=== PATIENT | female | born 1950 | race African-American/Black ===

== ENCOUNTER 2017-07-02 09:52 | Observation (INO) | payer OTHER ==
--- NOTE | 2017-07-02 11:19 | PDOC ---
History of Present Illness - General History Source: Patient Exam Limitations: No Limitations - History of Present Illness Initial Comments: 07/02/17 11:30 The patient is a 67 year old female, with a significant past medical history of COPD, lobectomy, mitral and aortic valve replacement, a-fib, cancer, HTN, CAD s/ p stent, and epmhpaseima, who presents to the emergency department with left arm pain, cough, back pain, SOB. The patient reports her pain is productive often bringing up yellow mucus. The patient ranks her pain a 8/10 in pain intensity. She notes her left arm pain is often worse with over head motions and notes having some numbness along her LUE. She notes her pain in back is worse with any motion. She denies recent fevers, chills, headache or dizziness. She denies recent nausea, vomit, diarrhea or constipation. She denies recent dysuria, frequency, urgency or hematuria. She denies recent chest pain. Allergies: NKA <Oneil Hartman - Last Filed: 07/02/17 11:30> <Rashida Hurley - Last Filed: 07/02/17 14:33> - General Chief Complaint: Shortness of Breath Stated Complaint: PCP SENT, BACK/LT ARM PAIN Time Seen by Provider: 07/02/17 10:55 Past History <Oneil Hartman - Last Filed: 07/02/17 11:30> - Past Medical History Anemia: (VIT D DEFICIENT) Cancer: Yes (MALIGNANT LUNG TUMOR) Cardiac Disorders: Yes (RHEUMATIC AORTIC STENOSIS, RHEUMATIC MITRAL REGURGITATION) CVA: Yes (W/DYSPHAGIA) COPD: Yes HTN: Yes (ESSENTIAL HTN) Thyroid Disease: Yes (HYPERPARATHYROIDISM) - Surgical History Cardiac Surgery: Yes (MECHANICAL AORTIC AND MITRAL VALVE) - Immunization History Immunization Up to Date: Yes (PNA UP TO DATE) - Suicide/Smoking/Psychosocial Hx Smoking History: Never smoked Have you smoked in the past 12 months: No Information on smoking cessation initiated: No 'Breaking Loose' booklet given: 11/15/13 Hx Alcohol Use: No Drug/Substance Use Hx: No Substance Use Type: None Hx Substance Use Treatment: No <Rashida Hurley - Last Filed: 07/02/17 14:33> - Past Medical History Allergies/Adverse Reactions: Allergies Allergy/AdvReac Type Severity Reaction Status Date / Time aspirin Allergy Severe Difficulty Verified 07/02/17 10:02 Breathing bupropion HCl [From Zyban] Allergy Severe Difficulty Verified 07/02/17 10:02 Breathing iodine Allergy Severe Difficulty Verified 07/02/17 10:02 Breathing Home Medications: Ambulatory Orders Albuterol Sulfate Inhaler - [Ventolin Hfa Inhaler -] 1 - 2 inh PO QID 07/02/17 Alendronate Na [Fosamax] 70 mg PO Q7D 07/02/17 Carvedilol [Coreg -] 25 mg PO TID 07/02/17 Chlorthalidone 50 mg PO DAILY 07/02/17 Clopidogrel Bisulfate [Plavix] 75 mg PO DAILY 07/02/17 Digoxin [Lanoxin -] 0.125 mg PO DAILY 07/02/17 Diltiazem Cd [Cardizem Cd -] 180 mg PO DAILY 07/02/17 Famotidine 20 mg PO DAILY 07/02/17 Tiotropium [place] [Spiriva] 1 inh PO DAILY 07/02/17 Valsartan [Diovan] 160 mg PO DAILY 07/02/17 Warfarin Na [Coumadin] 5 mg PO DAILY 07/02/17 Review of Systems - Review of Systems Able to Perform ROS?: Yes Comments:: 07/02/17 11:30 GENERAL/CONSTITUTIONAL: No fever or chills. No weakness. HEAD, EYES, EARS, NOSE AND THROAT: No change in vision. No ear pain or discharge. No sore throat. CARDIOVASCULAR: No chest pain +shortness of breath. RESPIRATORY: +cough No wheezing, or hemoptysis. GASTROINTESTINAL: No nausea, vomiting, diarrhea or constipation. GENITOURINARY: No dysuria, frequency, or change in urination. MUSCULOSKELETAL: +Left arm pain and back pain. No joint or muscle swelling or pain. No neck pain SKIN: No rash NEUROLOGIC: No headache, vertigo, loss of consciousness, or change in strength/ sensation. ENDOCRINE: No increased thirst. No abnormal weight change. HEMATOLOGIC/LYMPHATIC: No anemia, easy bleeding, or history of blood clots. ALLERGIC/IMMUNOLOGIC: No hives or skin allergy. <Oneil Hartman - Last Filed: 07/02/17 11:30> *Physical Exam - Vital Signs Last Vital Signs Temp Pulse Resp BP Pulse Ox 99.0 F 100 H 16 150/70 100 07/02/17 10:04 07/02/17 10:04 07/02/17 10:04 07/02/17 10:04 07/02/17 10:04 - Physical Exam Comments: 07/02/17 11:32 GENERAL: Awake, alert, and fully oriented, in no acute distress HEAD: No signs of trauma EYES: PERRLA, EOMI, sclera anicteric, conjunctiva clear ENT: Auricles normal inspection, hearing grossly normal, nares patent, oropharynx clear without exudates. Moist mucosa NECK: Normal ROM, supple, no lymphadenopathy, JVD, or masses LUNGS: Lung sounds are distant, decreased air entry bilaterally HEART: Regular rate and rhythm, normal S1 and S2, no murmurs, rubs or gallops ABDOMEN: Soft, nontender, normoactive bowel sounds. No guarding, no rebound. No masses EXTREMITIES: Normal range of motion, no edema. No clubbing or cyanosis. No cords, erythema, or tenderness NEUROLOGICAL: Cranial nerves II through XII grossly intact. Normal speech, normal gait SKIN: Warm, Dry, normal turgor, no rashes or lesions noted. 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 He suggested that her symptoms are likely due to CHF based on lab findings and presentation. She has history of diastolic HF. Baseline EF ~50%. Recommended diuretics. Also d/w Dr. Krause, patient has known history of hypercalcemia, in process of workup at present. Will discuss with Dr. Spears for admission. <Rashida Hurley - Last Filed: 07/02/17 14:33> *DC/Admit/Observation/Transfer - Attestations Scribe Attestion: 07/02/17 11:30 Documentation prepared by Oneil Hartman, acting as director medical science for Rashida Hurley MD. <Oneil Hartman - Last Filed: 07/02/17 11:30> - Discharge Dispostion Admit: Yes <Rashida Hurley - Last Filed: 07/02/17 14:33> Diagnosis at time of Disposition: Hypercalcemia CHF (congestive heart failure) Qualifiers: Congestive heart failure type: diastolic Congestive heart failure chronicity: acute on chronic Qualified Code(s): I50.33 - Acute on chronic diastolic ( congestive) heart failure - Discharge Dispostion Condition at time of disposition: Stable - Referrals Referrals: STAFF,NOT ON [Primary Care Provider] - - Patient Instructions - Post Discharge Activity
[2017-07-02 12:19] LABS: BASO % 0.5 % (0-2.0); EOS % 1.2 % (0-4.5); HEMATOCRIT 41.8 % (32.4-45.2); HEMOGLOBIN 13.5 GM/dL (10.7-15.3); LYMPH % 10.5 % (8-40); MCH 27.7 pg (25.7-33.7); MCHC 32.3 g/dl (32.0-36.0); MEAN CELL VOLUME 85.9 fl (80-96); MEAN PLT VOLUME 9.9 fl (7.5-11.1); NEUT % 79.8 % (42.8-82.8); PLATELET COUNT 165 K/MM3 (134-434); RBC 4.86 M/mm3 (3.60-5.2); RDW 15.2 % (11.6-15.6); WHITE BLOOD COUNT 11.9 K/mm3 (4.0-10.0)
[2017-07-02 12:49] LABS: ALBUMIN 3.4 g/dl (3.4-5.0); ANION GAP 7 (8-16); BILIRUBIN,TOTAL 0.7 mg/dL (0.2-1.0); BLOOD UREA NITROGEN 25 mg/dL (7-18); CHLORIDE 104 mmol/L (98-107); CO2 29 mmol/L (21-32); CREATININE 1.2 mg/dL (0.55-1.02); GLUCOSE,RANDOM 90 mg/dL (74-106); SGPT/ALT 14 U/L (12-78); SODIUM 140 mmol/L (136-145)
[2017-07-02 12:51] LABS: ALK PHOS 134 U/L (45-117)
[2017-07-02 12:55] LABS: POTASSIUM 3.4 mmol/L (3.5-5.1)
[2017-07-02 12:56] LABS: SGOT/AST 23 U/L (15-37)
[2017-07-02 14:28] LABS: PROTHROMBIN TIME (PATIENT) 49.9 SEC (9.98-11.88)
[2017-07-02] MEDS ORDERED: FUROSEMIDE 40 MG/4 ML INJECTABLE VIAL IVPUSH ONE (14:33)
[2017-07-02 15:11] LABS: INR 4.42 (0.82-1.09)
[2017-07-02] MEDS ORDERED: ACETAMINOPHEN 325 MG TABLET (FP) PO PRN (15:14)
--- NOTE | 2017-07-02 15:53 | HP ---
Admitting History and Physical - Primary Care Physician PCP: Sandy Krause - Admission Chief Complaint: I'm short of breath History of Present Illness: Mrs Mcfarland is a 67 year old female who comes to the ED with shortness of breath. Patient is a very vague and poor historian so unable to obtain a clear history from her. She states that she has been sick for "a long time now", she says well before Evin. She says she knows she has walking pneumonia but has been taking mucinex and this has resolved. She says she still has a cough but the sputum is clear. She says she is short of breath with exertion, she states she can only walk to the bathroom before she gets short of breath. This does not sound like a new symptom or even if it is worsening, when trying to clarify she says she used to walk around without difficulty but she has been weak and short of breath for years now and cannot tell me if this is her baseline or if worsened. She complains of back pain and L arm pain that has been there "forever". She cannot tell me how severe or the type of pain. She says she had a fever but when asked when she experienced a fever she says "I don 't know". She says she fell in the past but has not fallen recently. She denies abdominal pain, nausea, vomiting, diarrhea, constipation, difficulty or pain on urination, or swelling. She told the ED physician that she was here for an ultrasound and became short of breath so came to the ED. She told me that she showed up to the ultrasound appointment and they sent her over for further evaluation. She says she was hoping to go home. Case d/w Dr Krause and Dr Olivo who state this sounds like her baseline, however she is such a poor historian it is difficult to ascertain her complaints. History Source: Patient Limitations to Obtaining History: Poor Historian - Past Medical History Cardiovascular: Yes: CAD, HTN Pulmonary: Yes: COPD - Past Surgical History Past Surgical History: Yes: Valve Replacement - Smoking History Smoking history: Former smoker Have you smoked in the past 12 months: No - Alcohol/Substance Use Hx Alcohol Use: No History of Substance Use: reports: None - Social History Usual Living Arrangement: Yes: With Spouse ADL: Independent History of Recent Travel: No Home Medications - Allergies Allergies/Adverse Reactions: Allergies Allergy/AdvReac Type Severity Reaction Status Date / Time aspirin Allergy Severe Difficulty Verified 07/02/17 10:02 Breathing bupropion HCl [From Zyban] Allergy Severe Difficulty Verified 07/02/17 10:02 Breathing iodine Allergy Severe Difficulty Verified 07/02/17 10:02 Breathing - Home Medications Home Medications: Ambulatory Orders Albuterol Sulfate Inhaler - [Ventolin Hfa Inhaler -] 1 - 2 inh PO QID 07/02/17 Alendronate Na [Fosamax] 70 mg PO Q7D 07/02/17 Carvedilol [Coreg -] 25 mg PO TID 07/02/17 Chlorthalidone 50 mg PO DAILY 07/02/17 Clopidogrel Bisulfate [Plavix] 75 mg PO DAILY 07/02/17 Digoxin [Lanoxin -] 0.125 mg PO DAILY 07/02/17 Diltiazem Cd [Cardizem Cd -] 180 mg PO DAILY 07/02/17 Famotidine 20 mg PO DAILY 07/02/17 Tiotropium [place] [Spiriva] 1 inh PO DAILY 07/02/17 Valsartan [Diovan] 160 mg PO DAILY 07/02/17 Warfarin Na [Coumadin] 5 mg PO DAILY 07/02/17 Family Disease History - Family Disease History Family Disease History: Other: Mother (ESRD/HTN) Review of Systems Findings/Remarks: Full review of systems attempted, however patient is a poor historian and unable to obtain clear ROS Physical Examination Vital Signs: Vital Signs Temperature 37.2 C 07/02/17 10:04 Pulse Rate 100 H 07/02/17 10:04 Respiratory Rate 16 07/02/17 10:04 Blood Pressure 150/70 07/02/17 10:04 O2 Sat by Pulse Oximetry (%) 100 07/02/17 10:04 Constitutional: Yes: No Distress, Calm, Thin Eyes: Yes: Conjunctiva Clear, EOM Intact, PERRL Cardiovascular: Yes: Pulse Irregular. No: Tachycardia, Gallop, Murmur, Rub Respiratory: Yes: Regular, CTA Bilaterally, On Nasal O2. No: Rales, Rhonchi, Wheezes Gastrointestinal: Yes: Normal Bowel Sounds, Soft. No: Distention, Tenderness Extremities: Yes: WNL Edema: No Labs: CBC, BMP 07/02/17 12:10 07/02/17 12:10 Imaging - Results Chest X-ray: Report Reviewed, Image Reviewed Problem List - Problems (1) Supratherapeutic INR Assessment/Plan: -patient with elevated INR -target 2.5-3.5 -hold coumadin today -recheck in am Code(s): R79.1 - ABNORMAL COAGULATION PROFILE (2) CHF (congestive heart failure) Assessment/Plan: -patient with elevated bnp, however clinically does not appear in CHF exacerbation -chronically sick and poor historian -received lasix in the ED -admit to telemetry under observation -monitor overnight, evaluate and possible discharge in am Code(s): I50.9 - HEART FAILURE, UNSPECIFIED Qualifiers: Congestive heart failure type: diastolic Congestive heart failure chronicity: chronic Qualified Code(s): I50.32 - Chronic diastolic (congestive ) heart failure (3) Hypercalcemia Assessment/Plan: -chronic -continue outpatient work up Code(s): E83.52 - HYPERCALCEMIA (4) A-fib Assessment/Plan: -rate controlled Code(s): I48.91 - UNSPECIFIED ATRIAL FIBRILLATION Qualifiers: Atrial fibrillation type: chronic Qualified Code(s): I48.2 - Chronic atrial fibrillation (5) ASHD (arteriosclerotic heart disease) Assessment/Plan: -case d/w outpatient dental therapist -continue home regimen Code(s): I25.10 - ATHSCL HEART DISEASE OF [place] CORONARY ARTERY W/O ANG PCTRS (6) HTN (hypertension) Assessment/Plan: -continue home regimen Code(s): I10 - ESSENTIAL (PRIMARY) HYPERTENSION (7) S/P AVR (aortic valve replacement) Assessment/Plan: -mechanical -INR range as above Code(s): Z95.2 - PRESENCE OF PROSTHETIC HEART VALVE (8) S/P MVR (mitral valve replacement) Assessment/Plan: -mechanical -INR range as above Code(s): Z95.2 - PRESENCE OF PROSTHETIC HEART VALVE Assessment/Plan Dispo -patient unknown to our system, [facility] -will admit under observation -if chronic and at baseline, patient would not benefit from transition rn hospital stay -re-evaluate tomorrow and possible discharge
[2017-07-02] MEDS ORDERED: FUROSEMIDE 40 MG/4 ML INJECTABLE VIAL ONE (16:37)
[2017-07-02] MEDS: ALBUTEROL SO4 18 GM HFA INHALER IH SCH (21:08)
[2017-07-02 21:10] LABS: URINE APPEARANCE CLEAR; URINE BILIRUBIN NEGATIVE (NEGATIVE); URINE BLOOD 1+ (NEGATIVE); URINE COLOR STRAW; URINE GLUCOSE (UA) NEGATIVE (NEGATIVE); URINE KETONE NEGATIVE (NEGATIVE); URINE LEUK ESTERASE NEGATIVE (NEGATIVE); URINE NITRITE NEGATIVE (NEGATIVE); URINE PROTEIN NEGATIVE (NEGATIVE); URINE UROBILINOGEN NEGATIVE mg/dL (0.2-1.0)
[2017-07-02 21:47] LABS: CALCIUM OXALATE CRYSTALS RARE /hpf (NONE SEEN); EPI CELLS RARE /HPF (FEW); URINE HYALINE CAST 5 /lpf; URINE MUCUS RARE
[2017-07-02] MEDS ORDERED: CARVEDILOL 12.5 MG TABLET (FP) ONE (23:57)
[2017-07-03] MEDS: ALBUTEROL SO4 18 GM HFA INHALER IH SCH ×3 (00:04→13:47)
[2017-07-03] MEDS: CARVEDILOL 25 MG TABLET (FP) PO SCH ×2 (00:04→10:12)
[2017-07-03 07:27] VITALS: TEMP 97.4
[2017-07-03 08:43] LABS: BASO % 0.9 % (0-2.0); EOS % 2.7 % (0-4.5); HEMOGLOBIN 12.9 GM/dL (10.7-15.3); LYMPH % 18.6 % (8-40); MCH 27.6 pg (25.7-33.7); MCHC 32.3 g/dl (32.0-36.0); MEAN CELL VOLUME 85.4 fl (80-96); MEAN PLT VOLUME 9.9 fl (7.5-11.1); MONO % 8.7 % (3.8-10.2); NEUT % 69.1 % (42.8-82.8); PLATELET COUNT 152 K/MM3 (134-434); RBC 4.68 M/mm3 (3.60-5.2); RDW 14.7 % (11.6-15.6); WHITE BLOOD COUNT 8.4 K/mm3 (4.0-10.0)
[2017-07-03 08:54] LABS: INR 3.72 (0.82-1.09)
[2017-07-03 09:03] LABS: ANION GAP 11 (8-16); BLOOD UREA NITROGEN 31 mg/dL (7-18); CALCIUM 11.1 mg/dL (8.5-10.1); CHLORIDE 99 mmol/L (98-107); CO2 30 mmol/L (21-32); CREATININE 1.2 mg/dL (0.55-1.02); GLUCOSE,RANDOM 87 mg/dL (74-106); MAGNESIUM 1.4 mg/dL (1.8-2.4); PHOSPHOROUS 2.6 mg/dL (2.5-4.9); SODIUM 140 mmol/L (136-145)
[2017-07-03] MEDS ORDERED: MAGNESIUM SULF 50% (8.12 MEQ/2 ML-1 GM VIAL) IVPB ONE (09:22)
[2017-07-03] MEDS ORDERED: ALBUTEROL SO4 0.042% IH SOL 1.25 MG/3 ML VIAL.NEB NEB ONE (09:25)
--- NOTE | 2017-07-03 09:31 | EKG ---
Test Reason : Blood Pressure : / mmHG Vent. Rate : 084 BPM Atrial Rate : 071 BPM P-R Int : 000 ms QRS Dur : 100 ms QT Int : 368 ms P-R-T Axes : 000 -21 096 degrees QTc Int : 434 ms ATRIAL FIBRILLATION VOLTAGE CRITERIA FOR LEFT VENTRICULAR HYPERTROPHY CANNOT RULE OUT SEPTAL INFARCT , AGE UNDETERMINED ABNORMAL ECG Confirmed by MD Sheree, Esteban ([id number]) on 07/03/2017 9:31:07 AM Referred By: Confirmed By:Esteban Bentley MD
[2017-07-03] MEDS ORDERED: RANITIDINE HCL 150 MG TABLET (FP) ONE (09:54)
[2017-07-03] MEDS ORDERED: DIGOXIN 0.25 MG TABLET (FP) ONE (09:54)
[2017-07-03] MEDS ORDERED: ALBUTEROL SO4 0.083% IH SOL 2.5 MG/3 ML VIAL.NEB. NEB ONE (09:54)
[2017-07-03] MEDS ORDERED: DIGOXIN 0.125 MG TABLET (FP) ONE (09:55)
[2017-07-03] MEDS ORDERED: VALSARTAN 160 MG TABLET (UD) PO SCH (10:00)
[2017-07-03] MEDS ORDERED: TIOTROPIUM BROMIDE 18 MCG/INH (DEVICE W/ 5 CAPSULES) IH SCH (10:00)
[2017-07-03] MEDS ORDERED: CLOPIDOGREL BISULFATE 75 MG TABLET (FP) PO SCH (10:00)
[2017-07-03] MEDS ORDERED: RANITIDINE HCL 150 MG TABLET (FP) PO SCH (10:00)
[2017-07-03] MEDS ORDERED: DIGOXIN 0.125 MG TABLET (FP) PO SCH (10:00)
[2017-07-03] MEDS ORDERED: CHLORTHALIDONE 50 MG TABLET PO SCH (10:00)
--- NOTE | 2017-07-03 10:17 | DS ---
Physical Examination Vital Signs: Vital Signs Temperature 36.3 C L 07/03/17 07:26 Pulse Rate 103 H 07/03/17 10:00 Respiratory Rate 17 07/03/17 04:42 Blood Pressure 112/66 07/03/17 10:00 O2 Sat by Pulse Oximetry (%) 97 07/03/17 10:00 Constitutional: Yes: Well Nourished, No Distress, Calm Cardiovascular: Yes: Regular Rate and Rhythm. No: Gallop, Murmur, Rub Respiratory: Yes: Regular, CTA Bilaterally. No: Rales, Rhonchi, Wheezes Gastrointestinal: Yes: Normal Bowel Sounds, Soft. No: Distention, Tenderness Extremities: Yes: WNL Edema: No Labs: CBC, BMP 07/03/17 08:00 07/03/17 08:00 Discharge Summary Reason For Visit: CHF,HYPERCALCEMIA Current Active Problems CHF (congestive heart failure) (Acute) Hypercalcemia (Acute) Supratherapeutic INR (Acute) Hospital Course: (1) Supratherapeutic INR Code(s): R79.1 - ABNORMAL COAGULATION PROFILE (2) CHF (congestive heart failure) Code(s): I50.9 - HEART FAILURE, UNSPECIFIED Qualifiers: Congestive heart failure type: diastolic Congestive heart failure chronicity: chronic Qualified Code(s): I50.32 - Chronic diastolic (congestive ) heart failure (3) Hypercalcemia Code(s): E83.52 - HYPERCALCEMIA (4) A-fib Code(s): I48.91 - UNSPECIFIED ATRIAL FIBRILLATION Qualifiers: Atrial fibrillation type: chronic Qualified Code(s): I48.2 - Chronic atrial fibrillation (5) ASHD (arteriosclerotic heart disease) Code(s): I25.10 - ATHSCL HEART DISEASE OF [place] CORONARY ARTERY W/O ANG PCTRS (6) HTN (hypertension) Code(s): I10 - ESSENTIAL (PRIMARY) HYPERTENSION (7) S/P AVR (aortic valve replacement) Code(s): Z95.2 - PRESENCE OF PROSTHETIC HEART VALVE (8) S/P MVR (mitral valve replacement) Code(s): Z95.2 - PRESENCE OF PROSTHETIC HEART VALVE Mrs Mcfarland is a 67 year old female who came to the hospital for ultrasound and presented to the ED secondary to SOB (it is unclear if patient presented because of SOB of her own accord or sent by radiology, as detailed in H&P). She appeared chronic but since patient is a very vague historian with a complicated history she was admitted to the hospital under observation. She received IV lasix in the ED which resulted in iatrogenic hypokalemia. She was also found to have hypomagnesemia. These were both replaced and she is safe for discharge home. She was also found to have a supratherapeutic INR, she was instructed to hold today's dose of coumadin and restart it tomorrow. Patient remained stable and unchanged as she is safe for discharge with close follow up with Dr Krause and her skein bander. 34 minutes spent in preparation of this discharge Condition: Stable - Instructions Diet, Activity, Other Instructions: resume previous diet and activity Referrals: Sandy Krause MD [Non Staff, Medical] - Claus Olivo MD [Non Staff, Medical] - Disposition: HOME - Home Medications Comprehensive Discharge Medication List: Ambulatory Orders Albuterol Sulfate Inhaler - [Ventolin HFA Inhaler -] 1 - 2 inh PO QID 07/02/17 Alendronate Na [Fosamax (Weekly)] 70 mg PO Q7D 07/02/17 Carvedilol [Coreg -] 25 mg PO TID 07/02/17 Chlorthalidone 50 mg PO DAILY 07/02/17 Clopidogrel Bisulfate [Plavix] 75 mg PO DAILY 07/02/17 Digoxin [Lanoxin -] 0.125 mg PO DAILY 07/02/17 Diltiazem Cd [Cardizem Cd -] 180 mg PO DAILY 07/02/17 Famotidine 20 mg PO DAILY 07/02/17 Tiotropium [place] [Spiriva] 1 inh PO DAILY 07/02/17 Valsartan [Diovan] 160 mg PO DAILY 07/02/17 Warfarin Na [Coumadin -] 5 mg PO DAILY 07/02/17
[2017-07-03] MEDS ORDERED: MAGNESIUM SULF 50% (8.12 MEQ/2 ML-1 GM VIAL) ONE (10:24)
[2017-07-03 10:25] LABS: POTASSIUM 2.8 mmol/L (3.5-5.1)
[2017-07-03 11:07] VITALS: BMI 23.3
[2017-07-03] MEDS ORDERED: POTASSIUM CHLORIDE TABS 20 MEQ TABLET.ER (FP) PO ONE (11:30)
[2017-07-03] MEDS: MAGNESIUM 1GM/D5W - 1 GM/100 ML IVPB IVPB SCH ×2 (11:40→12:26)
[2017-07-03] MEDS ORDERED: POTASSIUM CHLORIDE ORAL LIQUID 20 MEQ/15 ML ONE (12:29)
[2017-07-03] MEDS ORDERED: KCL 10 MEQ IVPB 10 MEQ/100 ML INFUS.BAG IVPB ONE (12:52)
[2017-07-03] MEDS: POTASSIUM CHLORIDE 10 MEQ PREMIX IVPB (POTASSIUM RIDER) IVPB SCH ×2 (13:30→14:30)
[2017-07-03 15:50] LABS: ANION GAP 7 (8-16); BLOOD UREA NITROGEN 35 mg/dL (7-18); CALCIUM 9.7 mg/dL (8.5-10.1); CHLORIDE 103 mmol/L (98-107); CO2 29 mmol/L (21-32); CREATININE 1.3 mg/dL (0.55-1.02); GLUCOSE,RANDOM 136 mg/dL (74-106); POTASSIUM 3.8 mmol/L (3.5-5.1); SODIUM 139 mmol/L (136-145)
[2017-07-03 16:52] VITALS: BP 101/55; PULSE 59
== END 2017-07-03 16:45 | disposition home or self-care (01) ==
LOC: JER 09:52 → JERBED 14:33
PROVIDERS: ADMIT Internal Medicine; ATTEND Internal Medicine
PROC: 3E033GC Introduction of Other Therapeutic Substance into Peripheral Vein, Percutaneous Approach (ICD-10-PCS; principal; 2017-07-02)
PROC: 3E0337Z Introduction of Electrolytic and Water Balance Substance into Peripheral Vein, Percutaneous Approach (ICD-10-PCS; 2017-07-02)
PROC: 3E0F7GC Introduction of Other Therapeutic Substance into Respiratory Tract, Via Natural or Artificial Opening (ICD-10-PCS; 2017-07-02)
DX: I50.32 Chronic diastolic (congestive) heart failure (principal); I10 Essential (primary) hypertension; I48.2 Chronic atrial fibrillation; I25.10 Atherosclerotic heart disease of native coronary artery without angina pectoris; R79.1 Abnormal coagulation profile; E83.52 Hypercalcemia; E21.3 Hyperparathyroidism, unspecified; J43.9 Emphysema, unspecified; E55.9 Vitamin D deficiency, unspecified; Z95.2 Presence of prosthetic heart valve; Z90.2 Acquired absence of lung [part of]; Z95.5 Presence of coronary angioplasty implant and graft; Z85.118 Personal history of other malignant neoplasm of bronchus and lung; Z86.73 Personal history of transient ischemic attack (TIA), and cerebral infarction without residual deficits; Z88.6 Allergy status to analgesic agent; Z91.048 Other nonmedicinal substance allergy status; Z79.01 Long term (current) use of anticoagulants; Z87.891 Personal history of nicotine dependence
CPT/HCPCS: 36415; 71046-TC; 80048; 80053; 81003; 81015; 82550; 83735; 83880; 84100; 84484; 85025; 85610; 87040; 87086; 93005; 93010; 94640; 96365; 96375; 99285-25; G0378

== ENCOUNTER 2017-11-24 03:56 | Inpatient (IN) | payer OTHER ==
[2017-11-24] MEDS ORDERED: ALBUTEROL SO4 2.5/IPRATROPIUM 0.5 INH SOL 3 ML VIAL.NEB. NEB ONE ×2 (05:11→05:50)
[2017-11-24] MEDS ORDERED: methylPREDNISolone NA SUCC 125 MG/2 ML VIAL IVPB ONE (05:11)
--- NOTE | 2017-11-24 05:27 | PDOC ---
History of Present Illness - General History Source: Patient, Family, Old Records Exam Limitations: No Limitations - History of Present Illness Initial Comments: 11/24/17 05:31 The patient is a 67 year old female, with a significant past medical history of COPD, lobectomy, mitral and aortic valve replacement, Afib, cancer, HTN, CAD s/ p stent, and emphysema, who presents to the emergency department with, 5 days of hematuria, vaginal bleeding, and shortness of breath. As per patients daughter, her diapers have had a significant amount of bleeding. The patient reports shortness of breath when supine which is alleviated when lying on the side. She reports becoming short of breath when speaking short sentences. She reports a edema of her bilateral feet (baseline). She denies recent fevers, chills, headache or dizziness. She denies recent nausea, vomit, diarrhea or constipation. She denies recent dysuria, frequency, or urgency. She denies recent chest pain. Social history: Nonsmoker. Denies EtOH use and recreational drug use. Primary Care Physician: Sandy Krause <Willa Caceres - Last Filed: 11/24/17 06:55> - General History Source: Patient, Family, Old Records Exam Limitations: No Limitations <Ozzie Castellanos - Last Filed: 11/28/17 07:59> - General Chief Complaint: Respiratory Stated Complaint: DIFFICULTY BREATHING,FOOT SWELLING Time Seen by Provider: 11/24/17 04:16 Past History <Willa Caceres - Last Filed: 11/24/17 06:55> - Past Medical History Anemia: (VIT D DEFICIENT) Cancer: Yes (MALIGNANT LUNG TUMOR) Cardiac Disorders: Yes (RHEUMATIC AORTIC STENOSIS, RHEUMATIC MITRAL REGURGITATION) CVA: Yes (W/DYSPHAGIA) COPD: Yes HTN: Yes (ESSENTIAL HTN) Thyroid Disease: Yes (HYPERPARATHYROIDISM) - Surgical History Cardiac Surgery: Yes (MECHANICAL AORTIC AND MITRAL VALVE) - Immunization History Immunization Up to Date: Yes (PNA UP TO DATE) - Suicide/Smoking/Psychosocial Hx Smoking History: Never smoked Have you smoked in the past 12 months: No 'Breaking Loose' booklet given: 11/15/13 Hx Alcohol Use: No Drug/Substance Use Hx: No Substance Use Type: None Hx Substance Use Treatment: No <Ozzie Castellanos - Last Filed: 11/28/17 07:59> - Past Medical History Allergies/Adverse Reactions: Allergies Allergy/AdvReac Type Severity Reaction Status Date / Time aspirin Allergy Severe Difficulty Verified 11/24/17 04:24 Breathing bupropion HCl [From Zyban] Allergy Severe Difficulty Verified 11/24/17 04:24 Breathing iodine Allergy Severe Difficulty Verified 11/24/17 04:24 Breathing amiodarone Allergy Verified 11/24/17 04:24 CODEINE Allergy Uncoded 11/24/17 04:24 Home Medications: Ambulatory Orders Albuterol Sulfate Inhaler - [Ventolin HFA Inhaler -] 1 - 2 inh PO QID 07/02/17 Alendronate Na [Fosamax (Weekly)] 70 mg PO WE 07/02/17 Clopidogrel Bisulfate [Plavix] 75 mg PO DAILY 07/02/17 Digoxin [Lanoxin -] 0.125 mg PO DAILY 07/02/17 Diltiazem Cd [Cardizem Cd -] 180 mg PO HS 07/02/17 Tiotropium [place] [Spiriva] 1 inh PO DAILY 07/02/17 Valsartan [Diovan] 160 mg PO HS 07/02/17 Warfarin Na [Coumadin -] 5 mg PO DAILY 07/02/17 Carvedilol [Coreg -] 25 mg PO TID 11/24/17 Review of Systems - Review of Systems Able to Perform ROS?: Yes Comments:: 11/24/17 05:32 GENERAL/CONSTITUTIONAL: No fever or chills. No weakness. HEAD, EYES, EARS, NOSE AND THROAT: No change in vision. No ear pain or discharge. No sore throat. +CARDIOVASCULAR: SOB. No chest pain. +RESPIRATORY: Wheezing. No cough or hemoptysis. GASTROINTESTINAL: No nausea, vomiting, diarrhea or constipation. +GENITOURINARY: Hematuria. No dysuria. MUSCULOSKELETAL: No joint or muscle pain. No neck or back pain. +EXTREMITIES: Bilateral swelling of the feet. SKIN: No rash NEUROLOGIC: No headache, vertigo, loss of consciousness, or change in strength/ sensation. ENDOCRINE: No increased thirst. No abnormal weight change. HEMATOLOGIC/LYMPHATIC: No anemia, easy bleeding, or history of blood clots. ALLERGIC/IMMUNOLOGIC: No hives or skin allergy. All Other Systems: Reviewed and Negative <Willa Caceres - Last Filed: 11/24/17 06:55> *Physical Exam - Vital Signs Last Vital Signs Temp Pulse Resp BP Pulse Ox 98 F 107 H 22 174/104 98 11/24/17 04:26 11/24/17 04:26 11/24/17 04:26 11/24/17 04:26 11/24/17 04:26 - Physical Exam Comments: 11/24/17 05:32 GENERAL: Awake, alert, and fully oriented, in no acute distress HEAD: No signs of trauma EYES: PERRLA, EOMI, sclera anicteric, conjunctiva clear ENT: Auricles normal inspection, hearing grossly normal, nares patent, oropharynx clear without exudates. Moist mucosa NECK: Normal ROM, supple, no lymphadenopathy, JVD, or masses +LUNGS: Bilateral diffuse wheezing. No crackles +HEART: Irregularly irregular. No murmurs, rubs or gallops ABDOMEN: Soft, nontender, normoactive bowel sounds. No guarding, no rebound. No masses +EXTREMITIES: 1+ pedal edema bilaterally. Normal range of motion. No clubbing or cyanosis. No cords, erythema, or tenderness NEUROLOGICAL: Cranial nerves II through XII grossly intact. Normal speech, normal gait SKIN: Warm, Dry, normal turgor, no rashes or lesions noted. <Willa Caceres - Last Filed: 11/24/17 06:55> - Vital Signs Last Vital Signs Temp Pulse Resp BP Pulse Ox 98 F 107 H 22 174/104 98 11/24/17 04:26 11/24/17 04:26 11/24/17 04:26 11/24/17 04:26 11/24/17 04:26 <Ozzie Castellanos - Last Filed: 11/28/17 07:59> Heart Score/ECG Review #1 ECG reviewed & interpreted by me at: 05:00 11/24/17 05:28 atrial fibrillation 100, LVH, nonspecific ST and T wave abnormality, QTC 407 msec <Ozzie Castellanos - Last Filed: 11/28/17 07:59> ED Treatment Course - LABORATORY CBC & Chemistry Diagram: 11/24/17 05:50 11/24/17 05:50 - Medications Given in the ED: ED Medications Discontinued Medications Generic Name Dose Route Start Last Admin Trade Name Freq PRN Reason Stop Dose Admin Albuterol/Ipratropium 2 amp 11/24/17 05:11 11/24/17 05:25 Duoneb - NEB 11/24/17 05:12 2 amp ONCE ONE Administration Methylprednisolone Sodium Succinate 125 mg 11/24/17 05:11 11/24/17 05:25 Solu-Medrol - IVPB 11/24/17 05:12 125 mg ONCE ONE Administration <Willa Caceres - Last Filed: 11/24/17 06:55> - LABORATORY CBC & Chemistry Diagram: 11/28/17 07:10 11/27/17 06:30 - RADIOLOGY Radiology Studies Ordered: Category Date Time Status CHEST X-RAY PORTABLE* [RAD] Stat Radiology 11/24/17 05:10 Ordered <Ozzie Castellanos - Last Filed: 11/28/17 07:59> Medical Decision Making - Medical Decision Making 11/24/17 06:[address] Deedee Baires, covering doctor for Dr. Krause, awaiting call back. <Willa Caceres - Last Filed: 11/24/17 06:55> - Medical Decision Making 11/24/17 05:22 A portion of this note was documented by scribe services under my direction. I have reviewed the details of the note, within reason, and agree with the documentation with the following case summary and management plan written by me. Patient treated in the ED. Nursing notes are reviewed and incorporated into the medical decision-making. Vital signs reviewed. Peripheral IV access obtained by the nurse, laboratory studies are drawn and sent, reviewed and interpreted by myself. Vital Signs Temp Pulse Resp BP Pulse Ox 98 F 107 H 22 174/104 98 11/24/17 04:26 11/24/17 04:26 11/24/17 04:26 11/24/17 04:26 11/24/17 04:26 85-year-old female with history of hx of CHF, afib on coumadin and digoxin, HTN , s/p AVR, MVR p/w 5 days of hematuria and SOB. States that the patient has been urinating blood. Denies dysuria. Denies fevers, chills, or abdominal pain. States she is s/p complete hysterectomy. Also noted to have persistent lower extremity edema and SOB. Pt has been wheezing but no chest pain or fevers or cough. States she does not take diuretics, but is compliant with her other medications. I suspect that the hematuria is a UTI. Within the differential is bladder/renal cancer. Will likely benefit from either an inpatient or an urgent outpatient cystoscopy. The patient's SOB is likely COPD and/or CHF. Labs including BNP. Chest xray. Duonebs, steroids. I suspect pt will likely require admission to the hospital. 11/24/17 06:34 Chest xray reviewed by me, pending official radiology read. Pulmonary vascular congestion <Ozzie Castellanos - Last Filed: 11/28/17 07:59> *DC/Admit/Observation/Transfer - Attestations Scribe Attestion: 11/24/17 05:35 Documentation prepared by Willa Caceres, acting as medical technical writer for Ozzie Castellanos MD. <Willa Caceres - Last Filed: 11/24/17 06:55> <Ozzie Castellanos - Last Filed: 11/28/17 07:59> Diagnosis at time of Disposition: CHF (congestive heart failure), COPD (chronic obstructive pulmonary disease), UTI (urinary tract infection) - Discharge Dispostion Condition at time of disposition: Stable
[2017-11-24] MEDS ORDERED: methylPREDNISolone NA SUCC 125 MG/2 ML VIAL ONE (05:50)
[2017-11-24 06:07] LABS: BASO % 1.1 % (0-2.0); EOS % 1.4 % (0-4.5); HEMATOCRIT 37.7 % (32.4-45.2); HEMOGLOBIN 12.3 GM/dL (10.7-15.3); LYMPH % 11.3 % (8-40); MCH 28.5 pg (25.7-33.7); MCHC 32.8 g/dl (32.0-36.0); MEAN CELL VOLUME 86.9 fl (80-96); MEAN PLT VOLUME 9.8 fl (7.5-11.1); MONO % 8.6 % (3.8-10.2); NEUT % 77.6 % (42.8-82.8); PLATELET COUNT 191 K/MM3 (134-434); RBC 4.34 M/mm3 (3.60-5.2); RDW 15.3 % (11.6-15.6); WHITE BLOOD COUNT 8.6 K/mm3 (4.0-10.0)
[2017-11-24 06:15] LABS: VENOUS PC02 41.7 mmHg (38-52); VENOUS PH 7.39 (7.32-7.42); VENOUS PO2 42.1 mmHg (28-48)
[2017-11-24 06:21] LABS: PROTHROMBIN TIME (PATIENT) 63.3 SEC (9.7-13.0)
[2017-11-24 06:23] LABS: ACTIVATED PTT 56.7 SECONDS (26.9-34.4)
[2017-11-24 06:30] LABS: INR 5.6 (0.82-1.09)
[2017-11-24 06:31] LABS: ALBUMIN 3.4 g/dl (3.4-5.0); ANION GAP 8 (8-16); BILIRUBIN,TOTAL 0.9 mg/dL (0.2-1.0); BLOOD UREA NITROGEN 12 mg/dL (7-18); CALCIUM 10.4 mg/dL (8.5-10.1); CHLORIDE 113 mmol/L (98-107); CO2 26 mmol/L (21-32); GLUCOSE,RANDOM 100 mg/dL (74-106); MAGNESIUM 1.7 mg/dL (1.8-2.4); PHOSPHOROUS 2.3 mg/dL (2.5-4.9); POTASSIUM 3.3 mmol/L (3.5-5.1); SGOT/AST 21 U/L (15-37); SGPT/ALT 13 U/L (12-78); SODIUM 147 mmol/L (136-145); TOT PROT 6.3 g/dl (6.4-8.2)
[2017-11-24 06:43] LABS: ALK PHOS 139 U/L (45-117)
[2017-11-24] MEDS ORDERED: FUROSEMIDE 100 MG/10 ML INJECTABLE VIAL IVPB ONE (06:53)
[2017-11-24] MEDS ORDERED: morphine CARPU-JECT 2 MG/1 ML DISP.SYRIN IVPUSH ONE (06:57)
[2017-11-24] MEDS ORDERED: morphine CARPU-JECT 2 MG/1 ML DISP.SYRIN ONE (07:07)
[2017-11-24] MEDS ORDERED: FUROSEMIDE 40 MG/4 ML INJECTABLE VIAL ONE (07:07)
[2017-11-24] MEDS ORDERED: NITROGLYCERIN SUBLINGUAL 1/150 0.4 MG TAB SL ONE (07:21)
[2017-11-24 07:24] LABS: URINE APPEARANCE CLOUDY; URINE BILIRUBIN NEGATIVE (<2.0 mg/dL); URINE BLOOD 3+ (NEGATIVE); URINE GLUCOSE (UA) NEGATIVE (NEGATIVE); URINE KETONE NEGATIVE (NEGATIVE); URINE LEUK ESTERASE NEGATIVE (NEGATIVE); URINE NITRITE NEGATIVE (NEGATIVE); URINE UROBILINOGEN NEGATIVE mg/dL (0.2-1.0)
[2017-11-24 07:31] LABS: URINE PROTEIN 2+ (NEGATIVE)
[2017-11-24 07:32] LABS: URINE COLOR RED
[2017-11-24 07:35] LABS: URINE BACTERIA MANY /hpf (NONE SEEN)
[2017-11-24] MEDS ORDERED: CARVEDILOL 25 MG TABLET (FP) PO ONE (07:35)
[2017-11-24] MEDS ORDERED: DIGOXIN 0.125 MG TABLET (FP) PO ONE (07:36)
[2017-11-24] MEDS ORDERED: CARVEDILOL 12.5 MG TABLET (FP) PO ONE (07:45)
[2017-11-24] MEDS ORDERED: DIGOXIN 0.125 MG TABLET (FP) ONE (07:50)
[2017-11-24] MEDS ORDERED: CARVEDILOL 12.5 MG TABLET (FP) ONE (07:50)
[2017-11-24] MEDS ORDERED: CEFTRIAXONE 1 GM in DEXTROSE 5%-WATER - 50 ML IVPB ONE (07:55)
[2017-11-24] MEDS ORDERED: CEFTRIAXONE 1 GM/50 ML BAG ONE (08:06)
--- NOTE | 2017-11-24 08:10 | PDOC ---
*Physical Exam - Vital Signs Last Vital Signs Temp Pulse Resp BP Pulse Ox 98 F 104 H 20 210/101 99 11/24/17 04:26 11/24/17 07:24 11/24/17 07:24 11/24/17 07:24 11/24/17 07:24 ED Treatment Course - LABORATORY CBC & Chemistry Diagram: 11/24/17 05:50 11/24/17 05:50 - ADDITIONAL ORDERS Additional order review: Laboratory Results 11/24/17 11/24/17 11/24/17 06:40 05:50 05:50 PT with INR INR PTT (Actin FS) VBG pH 7.39 POC VBG pCO2 41.7 POC VBG pO2 42.1 Mixed VBG HCO3 24.7 Sodium Potassium Chloride Carbon Dioxide Anion Gap BUN Creatinine Creat Clearance w eGFR Random Glucose Lactic Acid 1.3 Calcium Phosphorus Magnesium Total Bilirubin AST ALT Alkaline Phosphatase Creatine Kinase Troponin I B-Natriuretic Peptide Total Protein Albumin Urine Color Red Urine Appearance Cloudy Urine pH 6.0 Ur Specific [place] 1.012 Urine Protein 2+ H Urine Glucose (UA) Negative Urine Ketones Negative Urine Blood 3+ H Urine Nitrite Negative Urine Bilirubin Negative Urine Urobilinogen Negative Ur Leukocyte Esterase Negative Urine WBC (Auto) 1491 Urine RBC (Auto) 2549 Urine Bacteria Many Digoxin 11/24/17 11/24/17 05:50 05:50 PT with INR 63.30 H INR 5.60 H* D PTT (Actin FS) 56.7 H VBG pH POC VBG pCO2 POC VBG pO2 Mixed VBG HCO3 Sodium 147 H Potassium 3.3 L Chloride 113 H Carbon Dioxide 26 Anion Gap 8 BUN 12 Creatinine 1.0 Creat Clearance w eGFR 55.14 Random Glucose 100 Lactic Acid Calcium 10.4 H Phosphorus 2.3 L Magnesium 1.7 L Total Bilirubin 0.9 D AST 21 ALT 13 Alkaline Phosphatase 139 H Creatine Kinase 77 Troponin I 0.02 B-Natriuretic Peptide 7117.90 H Total Protein 6.3 L Albumin 3.4 Urine Color Urine Appearance Urine pH Ur Specific [place] Urine Protein Urine Glucose (UA) Urine Ketones Urine Blood Urine Nitrite Urine Bilirubin Urine Urobilinogen Ur Leukocyte Esterase Urine WBC (Auto) Urine RBC (Auto) Urine Bacteria Digoxin 0.5656 L 11/24/17 05:50 RBC 4.34 MCV 86.9 MCHC 32.8 RDW 15.3 MPV 9.8 Neutrophils % 77.6 Lymphocytes % 11.3 D Monocytes % 8.6 Eosinophils % 1.4 Basophils % 1.1 - Medications Given in the ED: ED Medications Discontinued Medications Generic Name Dose Route Start Last Admin Trade Name [place] PRN Reason Stop Dose Admin Albuterol/Ipratropium 2 amp 11/24/17 05:11 11/24/17 05:25 Duoneb - NEB 11/24/17 05:12 2 amp ONCE ONE Administration Furosemide 40 mg 11/24/17 06:53 11/24/17 07:05 Lasix Injection - IVPB 11/24/17 06:54 40 mg ONCE ONE Administration Methylprednisolone Sodium Succinate 125 mg 11/24/17 05:11 11/24/17 05:25 Solu-Medrol - IVPB 11/24/17 05:12 125 mg ONCE ONE Administration Morphine Sulfate 2 mg 11/24/17 06:57 11/24/17 07:10 Morphine Injection - IVPUSH 11/24/17 06:58 2 mg ONCE ONE Administration Nitroglycerin 0.4 mg 11/24/17 07:21 11/24/17 07:22 Nitrostat - SL 11/24/17 07:22 0.4 mg NOW ONE Administration Medical Decision Making - Medical Decision Making 11/24/17 07:59 Pt endorsed to me by Dr. Castellanos at shift change. Presented with SOB, leg swelling , hematuria. Found to have COPD/CHF exacerbation, UTI. Treated with lasix, nitro , solu-medrol, nebs, rocephin. Morning BP meds given, as patient was significantly hypertensive. Awaiting hospitalist callback (they are covering Dr. Krause as per Dr. Krause's service). 11/24/17 08:[address] Deedee Baires, he is covering Dr. Krause (service was in error). Patient endorsed and accepted for admission. *DC/Admit/Observation/Transfer Diagnosis at time of Disposition: CHF (congestive heart failure) Qualifiers: Heart failure type: unspecified Heart failure chronicity: acute on chronic Qualified Code(s): I50.9 - Heart failure, unspecified COPD (chronic obstructive pulmonary disease) Qualifiers: COPD type: unspecified COPD Qualified Code(s): J44.9 - Chronic obstructive pulmonary disease, unspecified UTI (urinary tract infection) Qualifiers: Urinary tract infection type: site unspecified Hematuria presence: with hematuria Qualified Code(s): N39.0 - Urinary tract infection, site not specified - Discharge Dispostion Condition at time of disposition: Stable Decision to Admit order: Yes - Referrals - Patient Instructions - Post Discharge Activity
[2017-11-24] MEDS ORDERED: POTASSIUM CHLORIDE 20 MEQ PREMIX IVPB 100 ML IVPB ONE (09:15)
[2017-11-24] MEDS ORDERED: KCL 10 MEQ IVPB 10 MEQ/100 ML INFUS.BAG IVPB ONE (09:52)
[2017-11-24] MEDS ORDERED: WARFARIN NA 5 MG TABLET (UD) PO SCH (10:00)
[2017-11-24] MEDS: DIGOXIN 0.125 MG TABLET (FP) PO SCH (10:09)
[2017-11-24] MEDS: CLOPIDOGREL BISULFATE 75 MG TABLET (FP) PO SCH (10:10)
[2017-11-24] MEDS: TIOTROPIUM BROMIDE 18 MCG CAPSULES IH SCH (10:10)
[2017-11-24] MEDS: CEFTRIAXONE 1 GM in DEXTROSE 5%-WATER - 50 ML IVPB SCH (10:10)
[2017-11-24] MEDS: ALBUTEROL SO4 18 GM HFA INHALER IH SCH ×4 (10:11→21:20)
--- NOTE | 2017-11-24 10:12 | EKG ---
Test Reason : Blood Pressure : / mmHG Vent. Rate : 100 BPM Atrial Rate : 096 BPM P-R Int : 000 ms QRS Dur : 092 ms QT Int : 316 ms P-R-T Axes : 000 010 095 degrees QTc Int : 407 ms ATRIAL FIBRILLATION WITH PREMATURE VENTRICULAR OR ABERRANTLY CONDUCTED COMPLEXES VOLTAGE CRITERIA FOR LEFT VENTRICULAR HYPERTROPHY NONSPECIFIC ST AND T WAVE ABNORMALITY ABNORMAL ECG WHEN COMPARED WITH ECG OF 02-JUL-2017 12:22, NO SIGNIFICANT CHANGE WAS FOUND Confirmed by ADEOLA PEREZ MD ([id number]) on 11/24/2017 10:12:26 AM Referred By: Confirmed By:ADEOLA PEREZ MD
[2017-11-24] MEDS ORDERED: predniSONE 20 MG TABLET (UD) ONE (10:16)
[2017-11-24] MEDS ORDERED: LABETALOL HCL 5 MG/1 ML (100MG/20 ML VIAL) IVPUSH ONE (11:18)
[2017-11-24] MEDS ORDERED: LABETALOL HCL 5 MG/1 ML (200MG/40ML VIAL) IVPB ONE (11:28)
[2017-11-24] MEDS ORDERED: POTASSIUM CHLORIDE TABS 20 MEQ TABLET.ER (FP) PO ONE ×3 (11:34→11:41)
[2017-11-24] MEDS ORDERED: POTASSIUM CHLORIDE ORAL LIQUID 20 MEQ/15 ML ONE (11:51)
[2017-11-24] MEDS: ALBUTEROL SO4 2.5/IPRATROPIUM 0.5 INH SOL 3 ML VIAL.NEB. NEB SCH ×3 (12:04→20:57)
[2017-11-24] MEDS: CARVEDILOL 25 MG TABLET (FP) PO SCH ×2 (14:42→21:09)
--- NOTE | 2017-11-24 15:30 | HP ---
Admitting History and Physical - Primary Care Physician PCP: Sandy Krause - Admission Chief Complaint: worsening SOB History of Present Illness: 67 yrs old F lives at home multiple co-morbidities ex smoker COPD, [place] Lung s/p lobectomy, mitral and aortic valve replacement, Afib, HTN, CAD s/p stent, and emphysema, who presents to the emergency department with, 5 days of hematuria, vaginal bleeding, and shortness of breath. patient developed gradually worsening SOB, LE swelling cough and Hematuria, her symptoms worsened despite use of all home meds so came to Ed for evaluation, on arrival to Ed SOB, volume over loades, +, UA, elevated BNP and Pulmonary congestion, admitted for further evaluation and management, denies any CVA pain or tenderness, no c/o suprapubic pain or dysuria, no c/o fever.. - Past Medical History Cardiovascular: Yes: CAD, HTN Pulmonary: Yes: COPD - Past Surgical History Past Surgical History: Yes: Valve Replacement - Smoking History Smoking history: Never smoked Have you smoked in the past 12 months: No - Alcohol/Substance Use Hx Alcohol Use: No History of Substance Use: reports: None - Social History ADL: Independent History of Recent Travel: No Home Medications - Allergies Allergies/Adverse Reactions: Allergies Allergy/AdvReac Type Severity Reaction Status Date / Time aspirin Allergy Severe Difficulty Verified 11/24/17 04:24 Breathing bupropion HCl [From Zyban] Allergy Severe Difficulty Verified 11/24/17 04:24 Breathing iodine Allergy Severe Difficulty Verified 11/24/17 04:24 Breathing amiodarone Allergy Verified 11/24/17 04:24 CODEINE Allergy Uncoded 11/24/17 04:24 - Home Medications Home Medications: Ambulatory Orders Albuterol Sulfate Inhaler - [Ventolin HFA Inhaler -] 1 - 2 inh PO QID 07/02/17 Alendronate Na [Fosamax (Weekly)] 70 mg PO WE 07/02/17 Clopidogrel Bisulfate [Plavix] 75 mg PO DAILY 07/02/17 Digoxin [Lanoxin -] 0.125 mg PO DAILY 07/02/17 Diltiazem Cd [Cardizem Cd -] 180 mg PO HS 07/02/17 Tiotropium [place] [Spiriva] 1 inh PO DAILY 07/02/17 Valsartan [Diovan] 160 mg PO HS 07/02/17 Warfarin Na [Coumadin -] 5 mg PO DAILY 07/02/17 Carvedilol [Coreg -] 25 mg PO TID 11/24/17 Family Disease History - Family Disease History Family History: Unremarkable Family Disease History: Other: Mother (ESRD/HTN) Review of Systems - Review of Systems Constitutional: reports: Chills. denies: Diaphoresis, Fever HENT: denies: Difficult Swallowing, Ear Discharge Neck: denies: Decreased ROM, Lumps, Pain on Movement Cardiovascular: reports: Edema, Shortness of Breath. denies: Chest Pain, Palpitations Respiratory: reports: Cough, Exercise Intolerance. denies: Hemoptysis, Orthopnea Gastrointestinal: denies: Abdominal Pain, Bloating Genitourinary: reports: Hematuria, Vaginal Bleeding. denies: Burning, Discharge Musculoskeletal: denies: Back Pain, Crepitus Endocrine: denies: Excessive Sweating Physical Examination Vital Signs: Vital Signs Temperature 98.7 F 11/24/17 11:58 Pulse Rate 88 11/24/17 11:58 Respiratory Rate 18 11/24/17 11:58 Blood Pressure 213/99 11/24/17 11:58 O2 Sat by Pulse Oximetry (%) 99 11/24/17 11:58 Constitutional: Yes: No Distress, Calm. No: Anxious Eyes: Yes: Conjunctiva Clear, EOM Intact. No: Diplopia HENT: No: Atraumatic, Normocephalic, Drooling, Pharyngeal Erythema Neck: Yes: Supple, Trachea Midline. No: Decreased ROM, Lymphadenopathy Cardiovascular: Yes: Pulse Irregular, Rub, S1, S2. No: JVD, Gallop, Murmur Respiratory: Yes: Regular, Wheezes Gastrointestinal: Yes: Normal Bowel Sounds, Soft Musculoskeletal: Yes: Back Pain Extremities: No: Calf Tenderne RUE: 1+, LLE: Trace Left Doralis Pedis: 1+, Right Dorsalis Pedis: 1+ Neurological: Yes: Alert, Oriented Motor Strength: WNL, LUE, LLE, RUE, RLE Constitutional: Yes: No Distress, Calm. No: Anxious Eyes: Yes: Conjunctiva Clear, EOM Intact. No: Diplopia HENT: No: Atraumatic, Normocephalic, Drooling, Pharyngeal Erythema Neck: Yes: Supple, Trachea Midline. No: Decreased ROM, Lymphadenopathy Cardiovascular: Yes: Pulse Irregular, Rub, S1, S2. No: JVD, Gallop, Murmur Respiratory: Yes: Regular, Wheezes Gastrointestinal: Yes: Normal Bowel Sounds, Soft Musculoskeletal: Yes: Back Pain Extremities: No: Calf Tenderness Edema: RUE: 1+, LLE: Trace Peripheral Pulses: Left Doralis Pedis: 1+, Right Dorsalis Pedis: 1+ Neurological: Yes: Alert, Oriented ...Motor Strength: WNL, LUE, LLE, RUE, RLE Labs: CBC, BMP 11/24/17 05:50 11/24/17 05:50 Laboratory Results - last 24 hr 11/24/17 11/24/17 11/24/17 05:50 05:50 05:50 WBC 8.6 RBC 4.34 Hgb 12.3 Hct 37.7 MCV 86.9 MCH 28.5 MCHC 32.8 RDW 15.3 Plt Count 191 D MPV 9.8 Neutrophils % 77.6 Lymphocytes % 11.3 D Monocytes % 8.6 Eosinophils % 1.4 Basophils % 1.1 Nucleated RBC % 0 PT with INR 63.30 H INR 5.60 H* D PTT (Actin FS) 56.7 H VBG pH POC VBG pCO2 POC VBG pO2 Mixed VBG HCO3 Sodium 147 H Potassium 3.3 L Chloride 113 H Carbon Dioxide 26 Anion Gap 8 BUN 12 Creatinine 1.0 Creat Clearance w eGFR 55.14 Random Glucose 100 Lactic Acid Calcium 10.4 H Phosphorus 2.3 L Magnesium 1.7 L Total Bilirubin 0.9 D AST 21 ALT 13 Alkaline Phosphatase 139 H Creatine Kinase 77 Troponin I 0.02 B-Natriuretic Peptide 7117.90 H Total Protein 6.3 L Albumin 3.4 Urine Color Urine Appearance Urine pH Ur Specific [place] Urine Protein Urine Glucose (UA) Urine Ketones Urine Blood Urine Nitrite Urine Bilirubin Urine Urobilinogen Ur Leukocyte Esterase Urine WBC (Auto) Urine RBC (Auto) Urine Bacteria Digoxin 0.5656 L 11/24/17 11/24/17 11/24/17 05:50 05:50 06:40 WBC RBC Hgb Hct MCV MCH MCHC RDW Plt Count MPV Neutrophils % Lymphocytes % Monocytes % Eosinophils % Basophils % Nucleated RBC % PT with INR INR PTT (Actin FS) VBG pH 7.39 POC VBG pCO2 41.7 POC VBG pO2 42.1 Mixed VBG HCO3 24.7 Sodium Potassium Chloride Carbon Dioxide Anion Gap BUN Creatinine Creat Clearance w eGFR Random Glucose Lactic Acid 1.3 Calcium Phosphorus Magnesium Total Bilirubin AST ALT Alkaline Phosphatase Creatine Kinase Troponin I B-Natriuretic Peptide Total Protein Albumin Urine Color Red Urine Appearance Cloudy Urine pH 6.0 Ur Specific [place] 1.012 Urine Protein 2+ H Urine Glucose (UA) Negative Urine Ketones Negative Urine Blood 3+ H Urine Nitrite Negative Urine Bilirubin Negative Urine Urobilinogen Negative Ur Leukocyte Esterase Negative Urine WBC (Auto) 1491 Urine RBC (Auto) 2549 Urine Bacteria Many Digoxin Imaging - Results Chest X-ray: Report Reviewed (Pulmonary congestion) Ultrasound: Report Reviewed (Pending) EKG: Report Reviewed (AFib) Problem List - Problems (1) CHF exacerbation Assessment/Plan: Eevated BNP unknown EF H/O CAD and MVR needs ECHO, IV Lasix, Cardiology consult cont all home meds, cardiac diet serial BMP Code(s): I50.9 - HEART FAILURE, UNSPECIFIED (2) COPD (chronic obstructive pulmonary disease) Assessment/Plan: On Spiriva, Duoneb IV steroids, Pulmonary consult Code(s): J44.9 - CHRONIC OBSTRUCTIVE PULMONARY DISEASE, UNSPECIFIED Qualifiers: COPD type: unspecified COPD Qualified Code(s): J44.9 - Chronic obstructive pulmonary disease, unspecified (3) UTI (urinary tract infection) Assessment/Plan: Hematuria is penless normal renal function F/U CT bad and pelvuis and Pelvic ultrasound cont IV Ceftriaxone F/U cultures Code(s): N39.0 - URINARY TRACT INFECTION, SITE NOT SPECIFIED Qualifiers: Urinary tract infection type: site unspecified Hematuria presence: with hematuria Qualified Code(s): N39.0 - Urinary tract infection, site not specified; R31.9 - Hematuria, unspecified (4) Accelerated hypertension Assessment/Plan: Resume home meds add amlodipine 5 mg PO Code(s): I10 - ESSENTIAL (PRIMARY) HYPERTENSION (5) Supratherapeutic INR Assessment/Plan: HHold coumadin F/U INR in am Code(s): R79.1 - ABNORMAL COAGULATION PROFILE (6) Persistent atrial fibrillation Code(s): I48.1 - PERSISTENT ATRIAL FIBRILLATION (7) A-fib Assessment/Plan: Cont B Blockers rate control Hold couadin for supratherapeutic INR Code(s): I48.91 - UNSPECIFIED ATRIAL FIBRILLATION Qualifiers: Atrial fibrillation type: chronic Qualified Code(s): I48.2 - Chronic atrial fibrillation (8) S/P AVR (aortic valve replacement) Assessment/Plan: No active issue Code(s): Z95.2 - PRESENCE OF PROSTHETIC HEART VALVE (9) Hypokalemia Assessment/Plan: PO Kcl F/U BMP Code(s): E87.6 - HYPOKALEMIA (10) Hypomagnesemia Assessment/Plan: Replete Mag Code(s): E83.42 - HYPOMAGNESEMIA
[2017-11-24] MEDS ORDERED: MAGNESIUM OXIDE 400 MG TABLET (FP) PO ONE (15:45)
[2017-11-24] MEDS: amLODIPine BESYLATE 5 MG TABLET (FP) PO SCH (15:45)
[2017-11-24] MEDS: methylPREDNISolone NA SUCC 40 MG/1 ML VIAL IVPUSH SCH ×2 (15:46→18:30)
[2017-11-24] MEDS ORDERED: hydrALAZINE HCL 20 MG/ML VIAL IVPUSH ONE (21:03)
--- NOTE | 2017-11-24 21:05 | CON.CARD ---
Cardiology Consult (text) - Consultation Consultation Note: CC: HTN 67 yo smoker with h/o mitral and aortic valve replacement 2/2 rheumatic heart disease, Afib with h/o cva? and residual dysphagia, HTN, CAD s/p stent?, pad, COPD, lung ca s/p lobectomy, hyperparathyroidism (recent parathyroid scan suspicious for parathyroid adenoma) who p/w hematuria and weakness and noted to have uncontrolled HTN. Poor historian, per prior notes patient presented with multiple different complaints. At this time she is states she presented b/c of weakness. per previous notes also with worsened sob. currently states sob at baseline. + hematuria states she is adherent to outpatient meds, but recently stopped two medications due to side effects. s/p digoxin, plavix 75, coreg 25 x 2 doses, norvasc 5 mg, lasix 40 mg IV x1, sl ntg, labetolol 10 mg IV x 1, abx, steroids, nebs and lyte repletion. Denies cp, orthopnea, pnd, le edema, palps, dizzinesss, claudication or transient neurologic symptoms Denies f/c/s, n/v/d , cough, congestion, rash, h/a, visual disturbances. pmhx/pshx: per phi social hx: + tobacco fam hx: mother htn ros: per hpi cards: Dr. Olivo? Ambulatory Orders Albuterol Sulfate Inhaler - [Ventolin HFA Inhaler -] 1 - 2 inh PO QID 07/02/17 Alendronate Na [Fosamax (Weekly)] 70 mg PO WE 07/02/17 Clopidogrel Bisulfate [Plavix] 75 mg PO DAILY 07/02/17 Digoxin [Lanoxin -] 0.125 mg PO DAILY 07/02/17 Diltiazem Cd [Cardizem Cd -] 180 mg PO HS 07/02/17 Tiotropium [place] [Spiriva] 1 inh PO DAILY 07/02/17 Valsartan [Diovan] 160 mg PO HS 07/02/17 Warfarin Na [Coumadin -] 5 mg PO DAILY 07/02/17 Carvedilol [Coreg -] 25 mg PO TID 11/24/17 Current Medications Albuterol Sulfate (Ventolin Hfa Inhaler -) 2 puff IH QID JOHN Last Admin: 11/24/17 18:29 Dose: Not Given Albuterol/Ipratropium (Duoneb -) 1 amp NEB RQID REPLACED BY [facility] Last Admin: 11/24/17 20:57 Dose: 1 amp Amlodipine Besylate (Norvasc -) 5 mg PO DAILY REPLACED BY [facility] Last Admin: 11/24/17 15:45 Dose: 5 mg Carvedilol (Coreg -) 25 mg PO TID REPLACED BY [facility] Last Admin: 11/24/17 14:42 Dose: 25 mg Clopidogrel Bisulfate (Plavix -) 75 mg PO DAILY REPLACED BY [facility] Last Admin: 11/24/17 10:10 Dose: 75 mg Digoxin (Lanoxin -) 0.125 mg PO DAILY REPLACED BY [facility] Last Admin: 11/24/17 10:09 Dose: Not Given Diltiazem HCl (Cardizem Cd -) 180 mg PO [facility] Ceftriaxone Sodium 1 gm/ (Dextrose) 50 mls @ 100 mls/hr IVPB DAILY REPLACED BY [facility] Last Admin: 11/24/17 10:10 Dose: 100 mls/hr Methylprednisolone Sodium Succinate (Solu-Medrol -) 40 mg IVPUSH Q8H-IV REPLACED BY [facility] Last Admin: 11/24/17 18:30 Dose: 40 mg Ranitidine HCl (Zantac -) 150 mg PO BID REPLACED BY [facility] Tiotropium [place] (Spiriva -) 1 puff IH DAILY REPLACED BY [facility] Last Admin: 11/24/17 10:10 Dose: 2 inh Valsartan (Diovan -) 160 mg PO [facility] Vital Signs - 24 hr 11/24/17 11/24/17 11/24/17 04:24 04:26 07:24 Temperature 98 F Pulse Rate 107 H 107 H Pulse Rate [ 104 H Apical] Respiratory 22 20 Rate Blood Pressure 174/104 Blood Pressure 210/101 [Right Arm] O2 Sat by Pulse 98 98 99 Oximetry (%) 11/24/17 11/24/17 11/24/17 07:55 09:02 10:00 Temperature Pulse Rate Pulse Rate [ 101 H 110 H 90 Apical] Respiratory 20 20 18 Rate Blood Pressure Blood Pressure 210/117 202/102 191/117 [Right Arm] O2 Sat by Pulse 100 100 99 Oximetry (%) 11/24/17 11/24/17 11/24/17 10:57 11:58 16:14 Temperature 98.7 F Pulse Rate Pulse Rate [ 89 88 Apical] Respiratory 20 18 Rate Blood Pressure Blood Pressure 213/99 213/99 [Right Arm] O2 Sat by Pulse 99 99 97 Oximetry (%) 11/24/17 11/24/17 11/24/17 16:23 16:44 18:43 Temperature 97.4 F L 97.5 F L Pulse Rate 92 H 95 H 97 H Pulse Rate [ Apical] Respiratory 20 18 20 Rate Blood Pressure 225/123 164/109 199/113 Blood Pressure [Right Arm] O2 Sat by Pulse Oximetry (%) 11/24/17 20:23 Temperature 97.7 F Pulse Rate 91 H Pulse Rate [ Apical] Respiratory 18 Rate Blood Pressure 212/105 Blood Pressure [Right Arm] O2 Sat by Pulse Oximetry (%) Intake & Output 11/22/17 11/23/17 11/24/17 11/25/17 07:59 07:59 07:59 07:59 Weight 125 lb 125 lb NAD, calm JVD flat, neck supple diminished air mov't. + wheezes, nl effort irregularly, irregular nl s1, s2. 2/6 sys murmur at sternal border and apex + bs soft nt nd ext without e/c/c diminished dp/pt, no carotid bruits no jaundice, diaphoresis aaox3 CBC, BMP 11/24/17 05:50 11/24/17 05:50 Laboratory Tests 07/02/17 11/24/17 11/24/17 12:10 05:50 05:50 INR 5.60 H* D Lactic Acid Magnesium 1.7 L Total Bilirubin 0.9 D AST 21 ALT 13 Alkaline Phosphatase 139 H Troponin I 0.02 B-Natriuretic Peptide 1956.85 H 7117.90 H Albumin 3.4 Digoxin 0.5656 L 11/24/17 05:50 INR Lactic Acid 1.3 Magnesium Total Bilirubin AST ALT Alkaline Phosphatase Troponin I B-Natriuretic Peptide Albumin Digoxin ekg: afib with pvc, VR 100 bpm. LVH. non-sp t wave ab. no acute ischenmic changes. tele: rate controlled afib cxr: new congestive changes with bibasilar infiltrates and pleural effusions R> L. possible bibasilar atelectasis. prominent hilar markings. left apical pleural thickening. NAT scarring. vascular stent at left clavicle. 07/2017 parathyroid scan: focus of abnormal tracer suspcious for parathyroid adenoma. assessment/plan 67 yo smoker with h/o mitral and aortic valve replacement 2/2 rheumatic heart disease, Afib with h/o cva? and residual dysphagia, HTN, CAD s/p stent?, pad, COPD, lung ca s/p lobectomy, hyperparathyroidism (recent parathyroid scan suspicious for parathyroid adenoma) who p/w hematuria and weakness and noted to have uncontrolled HTN. uncontrolled HTN - recently self-d/c 2 medications: believes one medication was for copd and one was valsartan. Had also been on clonidine in the past. Unclear if this is rebound htn vs. other etiology. Currently asx. Today has only received norvasc , coreg and IV labetolol and sbp's remain > 200. Would give evening doses of home cardizem and diovan now and 10 mg of hydralazine IV x 1 then reassess need for additional po meds. - secondary htn 2/2 parathyroid disease? - repeat echo. - utox, tsh - con't jeronimo. sob/copd/acute diastolic hf exacerbation - cxr with increased congestive changes. BNP elevated. agree with iv lasix. repeat echo. - bp control as above. - daily weights, i/o's, bmp's. - tx of possible copd component per pmd, pulm. afib/avr/mvr with h/o CVA? - coumadin dosing per inr. currently supratherapeutic with hematuria (UTI eval per pmd). Hgb stable. - curretnly rate controlled on home high dose coreg 25 tid?, dilt and dig ( level ok). will clarify coreg dose. lyte repletion prn. - will need to obtain records on valve surgery, mechanical vs. bioprosthetic to determine INR goals. --> , check echo. cad? - will need to clarify history. - ce's neg x 1, would repeat. ekg without acute ischemic changes. con't plavix. Not on statin?, will try to obtain records. In the meanwhile consider starting low dose atorva. pad - on plavix in addition to coumadin, hgb stable. + tobacco - cessation counseling
[2017-11-24] MEDS: RANITIDINE HCL 150 MG TABLET (FP) PO SCH (21:09)
[2017-11-24] MEDS: VALSARTAN 160 MG TABLET (UD) PO SCH (21:09)
[2017-11-24] MEDS: hydrALAZINE HCL 50 MG TABLET (FP) PO SCH (22:00)
[2017-11-24] MEDS ORDERED: cloNIDine HCL 0.1 MG TABLET PO SCH (22:00)
[2017-11-24 22:41] LABS: URINE AMPHETAMINES NEGATIVE ng/ml (CUTOFF=500)
[2017-11-24 22:42] LABS: COCAINE, UR NEGATIVE ng/ml (CUTOFF=300); METHADONE, UR NEGATIVE ng/ml (CUTOFF=300); PHENCYCLIDINE,URINE NEGATIVE ng/ml (CUTOFF=25); URINE BARBITURATES NEGATIVE ng/ml (CUTOFF=200); URINE BENZODIAZEPINES NEGATIVE ng/ml (CUTOFF=200)
[2017-11-24 22:43] LABS: OPIATES, URI POSITIVE ng/ml (CUTOFF=300)
[2017-11-25] MEDS: methylPREDNISolone NA SUCC 40 MG/1 ML VIAL IVPUSH SCH ×3 (02:41→18:19)
[2017-11-25] MEDS ORDERED: PT OWN MED DRAWER 7, Y5N ONE ×2 (05:15→08:56)
[2017-11-25] MEDS: CARVEDILOL 25 MG TABLET (FP) PO SCH ×3 (05:53→21:27)
[2017-11-25] MEDS: hydrALAZINE HCL 50 MG TABLET (FP) PO SCH ×3 (05:53→21:27)
[2017-11-25] MEDS ORDERED: hydrALAZINE HCL 50 MG TABLET (FP) PO SCH (06:00)
[2017-11-25 06:35] LABS: BASO % 0.2 % (0-2.0); HEMATOCRIT 32.8 % (32.4-45.2); HEMOGLOBIN 11.1 GM/dL (10.7-15.3); LYMPH % 4.6 % (8-40); MCH 29.1 pg (25.7-33.7); MCHC 33.9 g/dl (32.0-36.0); MEAN CELL VOLUME 85.9 fl (80-96); MEAN PLT VOLUME 9.9 fl (7.5-11.1); MONO % 4.5 % (3.8-10.2); NEUT % 90.7 % (42.8-82.8); PLATELET COUNT 152 K/MM3 (134-434); RBC 3.81 M/mm3 (3.60-5.2); RDW 14.9 % (11.6-15.6); WHITE BLOOD COUNT 9.3 K/mm3 (4.0-10.0)
[2017-11-25 06:47] LABS: PROTHROMBIN TIME (PATIENT) 71.7 SEC (9.7-13.0)
[2017-11-25 06:50] LABS: INR 6.35 (0.82-1.09)
[2017-11-25 07:12] LABS: CHLORIDE 109 mmol/L (98-107); POTASSIUM 3.9 mmol/L (3.5-5.1); SODIUM 143 mmol/L (136-145)
[2017-11-25 07:19] LABS: ANION GAP 7 (8-16); BLOOD UREA NITROGEN 20 mg/dL (7-18); CALCIUM 9.9 mg/dL (8.5-10.1); CO2 27 mmol/L (21-32); CREATININE 1.1 mg/dL (0.55-1.02); GLUCOSE,RANDOM 178 mg/dL (74-106); MAGNESIUM 1.7 mg/dL (1.8-2.4)
[2017-11-25] MEDS ORDERED: PHYTONADIONE 5 MG TABLET PO ONE (07:31)
[2017-11-25] MEDS: ALBUTEROL SO4 2.5/IPRATROPIUM 0.5 INH SOL 3 ML VIAL.NEB. NEB SCH ×4 (08:10→20:56)
[2017-11-25] MEDS ORDERED: cefTRIAXone SODIUM 1 GM VIAL ONE (08:55)
[2017-11-25] MEDS ORDERED: DEXTROSE 5%-WATER - 50 ML IVPB ONE (08:56)
[2017-11-25] MEDS: CEFTRIAXONE 1 GM in DEXTROSE 5%-WATER - 50 ML IVPB SCH (09:18)
[2017-11-25] MEDS: DIGOXIN 0.125 MG TABLET (FP) PO SCH (09:19)
[2017-11-25] MEDS: amLODIPine BESYLATE 5 MG TABLET (FP) PO SCH (09:19)
[2017-11-25] MEDS: CLOPIDOGREL BISULFATE 75 MG TABLET (FP) PO SCH (09:19)
[2017-11-25] MEDS: RANITIDINE HCL 150 MG TABLET (FP) PO SCH ×2 (09:19→21:27)
[2017-11-25] MEDS: TIOTROPIUM BROMIDE 18 MCG CAPSULES IH SCH (09:19)
[2017-11-25] MEDS: ALBUTEROL SO4 18 GM HFA INHALER IH SCH ×4 (09:20→22:22)
--- NOTE | 2017-11-25 10:50 | CON.PULM ---
Consult Consult Specialty:: PULMONARY Referred by:: Dr. Baires Reason for Consultation:: COPD - History of Present Illness Chief Complaint: hematuria History of Present Illness: 67yo female with h/o HTN, atrial fibrillation on anticoagulation, CAD, COPD, lung cancer s/p lobectomy, h/o mitral and aortic valve replacement who was admitted with hematuria x 5 days. Reports some shortness of breath that started with the bleeding. +nonproductive cough and wheezing. No fevers, chills or sweats. No chest discomfort or tightness. Uses Spiriva and nebulizers at home. Started on steroids and inhaled bronchodilators with improvement in her breathing. Still with hematuria. INR supratherapeutic on admission. - History Source History Provided By: Patient, Medical Record Limitations to Obtaining History: No Limitations - Past Medical History Cardio/Vascular: Yes: CAD, HTN Pulmonary: Yes: COPD ...: No - Past Surgical History Past Surgical History: Yes: Valve Replacement - Alcohol/Substance Use Hx Alcohol Use: No History of Substance Use: reports: None - Smoking History Smoking history: Never smoked Have you smoked in the past 12 months: No - Social History ADL: Independent History of Recent Travel: No Home Medications - Allergies Allergies/Adverse Reactions: Allergies Allergy/AdvReac Type Severity Reaction Status Date / Time aspirin Allergy Severe Difficulty Verified 11/24/17 04:24 Breathing bupropion HCl [From Zyban] Allergy Severe Difficulty Verified 11/24/17 04:24 Breathing iodine Allergy Severe Difficulty Verified 11/24/17 04:24 Breathing amiodarone Allergy Verified 11/24/17 04:24 CODEINE Allergy Uncoded 11/24/17 04:24 - Home Medications Home Medications: Ambulatory Orders Albuterol Sulfate Inhaler - [Ventolin HFA Inhaler -] 1 - 2 inh PO QID 07/02/17 Alendronate Na [Fosamax (Weekly)] 70 mg PO WE 07/02/17 Clopidogrel Bisulfate [Plavix] 75 mg PO DAILY 07/02/17 Digoxin [Lanoxin -] 0.125 mg PO DAILY 07/02/17 Diltiazem Cd [Cardizem Cd -] 180 mg PO HS 07/02/17 Tiotropium [place] [Spiriva] 1 inh PO DAILY 07/02/17 Valsartan [Diovan] 160 mg PO HS 07/02/17 Warfarin Na [Coumadin -] 5 mg PO DAILY 07/02/17 Carvedilol [Coreg -] 25 mg PO TID 11/24/17 Family Disease History - Family Disease History Family Disease History: Other: Mother (ESRD/HTN) Review of Systems - Review of Systems Constitutional: reports: Weakness. denies: Chills, Fever Eyes: denies: Recent Change in Vision HENT: denies: Nasal Congestion, Throat Pain Neck: denies: Stiffness, Tenderness Cardiovascular: reports: Shortness of Breath. denies: Chest Pain, Edema, Palpitations Respiratory: reports: Cough, SOB on Exertion, Wheezing. denies: Hemoptysis Gastrointestinal: denies: Abdominal Pain, Nausea, Vomiting Genitourinary: reports: Frequency, Hematuria, Incontinence Neurological: denies: Dizziness, Headache Endocrine: denies: Unexplained Weight Loss Physical Exam Vital Sings: Vital Signs Temperature 97.3 F L 11/25/17 06:58 Pulse Rate 98 H 11/25/17 09:19 Respiratory Rate 18 11/25/17 06:58 Blood Pressure 141/75 11/25/17 06:58 O2 Sat by Pulse Oximetry (%) 99 11/24/17 21:00 Constitutional: Yes: Calm Eyes: Yes: Conjunctiva Clear, EOM Intact HENT: Yes: Atraumatic, Normocephalic Neck: Yes: Supple, Trachea Midline Cardiovascular: Yes: Pulse Irregular, Murmur Respiratory: Yes: Rhonchi, Wheezes ...Clubbing: No Gastrointestinal: Yes: Normal Bowel Sounds, Soft. No: Tenderness Edema: No Neurological: Yes: Alert, Oriented Labs: CBC, BMP 11/25/17 06:00 11/25/17 06:00 Imaging - Results Chest X-ray: Report Reviewed, Image Reviewed (pulmonary vascular congestion, bilateral pleural effusions) Problem List - Problems (1) Hematuria Code(s): R31.9 - HEMATURIA, UNSPECIFIED (2) UTI (urinary tract infection) Code(s): N39.0 - URINARY TRACT INFECTION, SITE NOT SPECIFIED Qualifiers: Urinary tract infection type: site unspecified Hematuria presence: with hematuria Qualified Code(s): N39.0 - Urinary tract infection, site not specified; R31.9 - Hematuria, unspecified (3) Supratherapeutic INR Code(s): R79.1 - ABNORMAL COAGULATION PROFILE (4) S/P AVR (aortic valve replacement) Code(s): Z95.2 - PRESENCE OF PROSTHETIC HEART VALVE (5) S/P MVR (mitral valve replacement) Code(s): Z95.2 - PRESENCE OF PROSTHETIC HEART VALVE (6) A-fib Code(s): I48.91 - UNSPECIFIED ATRIAL FIBRILLATION Qualifiers: Atrial fibrillation type: chronic Qualified Code(s): I48.2 - Chronic atrial fibrillation (7) ASHD (arteriosclerotic heart disease) Code(s): I25.10 - ATHSCL HEART DISEASE OF [place] CORONARY ARTERY W/O ANG PCTRS (8) HTN (hypertension) Code(s): I10 - ESSENTIAL (PRIMARY) HYPERTENSION (9) COPD exacerbation Code(s): J44.1 - CHRONIC OBSTRUCTIVE PULMONARY DISEASE W (ACUTE) EXACERBATION (10) CHF (congestive heart failure) Code(s): I50.9 - HEART FAILURE, UNSPECIFIED Qualifiers: Heart failure type: unspecified Heart failure chronicity: acute on chronic Qualified Code(s): I50.9 - Heart failure, unspecified Assessment/Plan Hematuria r/o UTI Supratherapeutic INR Acute COPD Exacerbation CHF Exacerbation CAD Atrial Fibrillation s/p MVR/AVR - continue antibiotics - f/u cultures - monitor H/H, INR - transfuse as needed - urology eval - short medrol course - inhaled bronchodilators - will d/c spiriva as pt on duonebs, can resume upon discharge - would give lasix - monitor urine output, creatinine - echocardiogram Thank you for this consult Claus Vasquez MD
[2017-11-25] MEDS ORDERED: FUROSEMIDE 40 MG/4 ML INJECTABLE VIAL IVPUSH ONE (11:15)
--- NOTE | 2017-11-25 12:58 | PN ---
Progress Note, Physician Chief Complaint: Feels improved, hemodynamically stable and afebrile - Current Medication List Current Medications: Active Medications Albuterol Sulfate (Ventolin Hfa Inhaler -) 2 puff IH QID [facility] Last Admin: 11/25/17 09:20 Dose: Not Given Albuterol/Ipratropium (Duoneb -) 1 amp NEB RQID [facility] Last Admin: 11/25/17 11:11 Dose: 1 amp Amlodipine Besylate (Norvasc -) 5 mg PO DAILY [facility] Last Admin: 11/25/17 09:19 Dose: 5 mg Carvedilol (Coreg -) 25 mg PO TID [facility] Last Admin: 11/25/17 05:53 Dose: 25 mg Clopidogrel Bisulfate (Plavix -) 75 mg PO DAILY [facility] Last Admin: 11/25/17 09:19 Dose: 75 mg Digoxin (Lanoxin -) 0.125 mg PO DAILY [facility] Last Admin: 11/25/17 09:19 Dose: 0.125 mg Diltiazem HCl (Cardizem Cd -) 180 mg PO [facility] Last Admin: 11/24/17 21:09 Dose: 180 mg Fluticasone Propionate (Flonase -) 1 spray NS BID [facility] Hydralazine HCl (Apresoline -) 50 mg PO TID [facility] Last Admin: 11/25/17 05:53 Dose: 50 mg Ceftriaxone Sodium 1 gm/ (Dextrose) 50 mls @ 100 mls/hr IVPB DAILY [facility] Last Admin: 11/25/17 09:18 Dose: 100 mls/hr Methylprednisolone Sodium Succinate (Solu-Medrol -) 40 mg IVPUSH Q8H-IV [facility] Last Admin: 11/25/17 09:18 Dose: 40 mg Ranitidine HCl (Zantac -) 150 mg PO BID [facility] Last Admin: 11/25/17 09:19 Dose: 150 mg Valsartan (Diovan -) 160 mg PO HS [facility] Last Admin: 11/24/17 21:09 Dose: 160 mg - Objective Vital Signs: Vital Signs Temperature 97.3 F L 11/25/17 06:58 Pulse Rate 98 H 11/25/17 09:19 Respiratory Rate 18 11/25/17 06:58 Blood Pressure 141/75 11/25/17 06:58 O2 Sat by Pulse Oximetry (%) 99 11/24/17 21:00 Labs: CBC, BMP 11/25/17 06:00 11/25/17 06:00 INR, PTT INR 6.35 (0.82-1.09) H* 11/25/17 06:00 Problem List - Problems (1) CHF exacerbation Assessment/Plan: Eevated BNP unknown EF H/O CAD and MVR needs ECHO, cont Lasix, Cardiology consult cont all home meds, cardiac diet serial BMP Code(s): I50.9 - HEART FAILURE, UNSPECIFIED (2) COPD (chronic obstructive pulmonary disease) Assessment/Plan: On Spiriva, Duoneb IV steroids, Pulmonary consult Code(s): J44.9 - CHRONIC OBSTRUCTIVE PULMONARY DISEASE, UNSPECIFIED Qualifiers: COPD type: unspecified COPD Qualified Code(s): J44.9 - Chronic obstructive pulmonary disease, unspecified (3) UTI (urinary tract infection) Assessment/Plan: Hematuria is penless normal renal function F/U CT bad and pelvuis and Pelvic ultrasound cont IV Ceftriaxone, 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 GNB Code(s): N39.0 - URINARY TRACT INFECTION, SITE NOT SPECIFIED Qualifiers: Urinary tract infection type: site unspecified Hematuria presence: with hematuria Qualified Code(s): N39.0 - Urinary tract infection, site not specified; R31.9 - Hematuria, unspecified (4) Accelerated hypertension Assessment/Plan: Now well controlled Code(s): I10 - ESSENTIAL (PRIMARY) HYPERTENSION (5) Supratherapeutic INR Assessment/Plan: INR 6.0 mild bleeding H/h stable Hold coumadin , vit K 2.5 mg PO F/U INR in am Code(s): R79.1 - ABNORMAL COAGULATION PROFILE (6) Persistent atrial fibrillation Code(s): I48.1 - PERSISTENT ATRIAL FIBRILLATION (7) A-fib Assessment/Plan: Cont B Blockers rate control Hold couadin for supratherapeutic INR Code(s): I48.91 - UNSPECIFIED ATRIAL FIBRILLATION Qualifiers: Atrial fibrillation type: chronic Qualified Code(s): I48.2 - Chronic atrial fibrillation (8) S/P AVR (aortic valve replacement) Assessment/Plan: No active issue Code(s): Z95.2 - PRESENCE OF PROSTHETIC HEART VALVE
[2017-11-25] MEDS: FLUTICASONE PROP 0.05% 16 GM NASAL SPRAY NS SCH ×2 (15:10→22:21)
[2017-11-25] MEDS ORDERED: MAGNESIUM SULF 50% (8.12 MEQ/2 ML-1 GM VIAL) IVPB ONE (15:27)
--- NOTE | 2017-11-25 15:36 | PN ---
Progress Note (short form) - Note Progress Note: CC: HTN S: bp improved last night after receiving IV hydralazine and evening meds. started on additional hydralazine 50 mg tid today. Also s/p lasix 40 mg IV x 1 again today. still with hematuria (improved) s/p vit k today as well. Current Medications Albuterol Sulfate (Ventolin Hfa Inhaler -) 2 puff IH QID [facility] Last Admin: 11/25/17 15:12 Dose: Not Given Albuterol/Ipratropium (Duoneb -) 1 amp NEB RQID [facility] Last Admin: 11/25/17 11:11 Dose: 1 amp Amlodipine Besylate (Norvasc -) 5 mg PO DAILY [facility] Last Admin: 11/25/17 09:19 Dose: 5 mg Atorvastatin Calcium (Lipitor -) 10 mg PO [facility] Carvedilol (Coreg -) 25 mg PO BID [facility] Clopidogrel Bisulfate (Plavix -) 75 mg PO DAILY [facility] Last Admin: 11/25/17 09:19 Dose: 75 mg Digoxin (Lanoxin -) 0.125 mg PO DAILY [facility] Last Admin: 11/25/17 09:19 Dose: 0.125 mg Diltiazem HCl (Cardizem Cd -) 180 mg PO [facility] Last Admin: 11/24/17 21:09 Dose: 180 mg Fluticasone Propionate (Flonase -) 1 spray NS BID [facility] Last Admin: 11/25/17 15:10 Dose: 1 spray Hydralazine HCl (Apresoline -) 50 mg PO TID [facility] Last Admin: 11/25/17 15:10 Dose: 50 mg Ceftriaxone Sodium 1 gm/ (Dextrose) 50 mls @ 100 mls/hr IVPB DAILY [facility] Last Admin: 11/25/17 09:18 Dose: 100 mls/hr Magnesium Sulfate (Magnesium Sulfate) 2 gm IVPB ONCE ONE Stop: 11/25/17 15:28 Methylprednisolone Sodium Succinate (Solu-Medrol -) 40 mg IVPUSH Q8H-IV [facility] Last Admin: 11/25/17 09:18 Dose: 40 mg Ranitidine HCl (Zantac -) 150 mg PO BID [facility] Last Admin: 11/25/17 09:19 Dose: 150 mg Valsartan (Diovan -) 160 mg PO HS [facility] Last Admin: 11/24/17 21:09 Dose: 160 mg Vital Signs - 24 hr 11/24/17 11/24/17 11/24/17 16:14 16:23 16:44 Temperature 97.4 F L Pulse Rate 92 H 95 H Respiratory 20 18 Rate Blood Pressure 225/123 164/109 O2 Sat by Pulse 97 Oximetry (%) 11/24/17 11/24/17 11/24/17 18:43 20:23 21:00 Temperature 97.5 F L 97.7 F Pulse Rate 97 H 91 H Respiratory 20 18 18 Rate Blood Pressure 199/113 212/105 O2 Sat by Pulse 99 Oximetry (%) 11/24/17 11/24/17 11/25/17 22:00 23:00 01:41 Temperature 97.8 F Pulse Rate 100 H 99 H 99 H Respiratory 18 Rate Blood Pressure 163/91 150/102 156/88 O2 Sat by Pulse Oximetry (%) 11/25/17 11/25/17 11/25/17 06:58 09:19 10:00 Temperature 97.3 F L Pulse Rate 78 98 H Respiratory 18 18 Rate Blood Pressure 141/75 O2 Sat by Pulse 99 Oximetry (%) 11/25/17 11/25/17 11:00 13:50 Temperature 97.8 F 98.1 F Pulse Rate 98 H 99 H Respiratory 18 18 Rate Blood Pressure 151/83 138/71 O2 Sat by Pulse Oximetry (%) Intake & Output 11/23/17 11/24/17 11/25/17 11/26/17 07:59 07:59 07:59 07:59 Intake Total 280 Balance 280 Weight 125 lb 125 lb NAD, calm JVD flat, neck supple diminished air mov't. + wheezes, nl effort irregularly, irregular nl s1, s2. mechanical s1, s2. + bs soft nt nd ext without e/c/c diminished dp/pt, no carotid bruits no jaundice, diaphoresis aaox3 CBC, BMP 11/25/17 06:00 11/25/17 06:00 Microbiology 11/24/17 06:40 Urine - Urine Clean Catch Urine Culture - Preliminary Lactose Fermenting Neg Bacilli Laboratory Tests 11/24/17 11/24/17 11/25/17 21:30 22:02 06:00 INR 6.35 H* Magnesium Creatine Kinase 77 Troponin I < 0.02 TSH 0.63 Opiates Screen Positive 11/25/17 06:00 INR Magnesium 1.7 L Creatine Kinase Troponin I TSH Opiates Screen ekg: afib with pvc, VR 100 bpm. LVH. non-sp t wave ab. no acute ischenmic changes. tele: rate controlled afib cxr: new congestive changes with bibasilar infiltrates and pleural effusions R> L. possible bibasilar atelectasis. prominent hilar markings. left apical pleural thickening. NAT scarring. vascular stent at left clavicle. 07/2017 parathyroid scan: focus of abnormal tracer suspcious for parathyroid adenoma. assessment/plan 67 yo smoker with h/o mitral and aortic valve replacement 2/2 rheumatic heart disease, Afib with h/o cva? and residual dysphagia, HTN, CAD s/p stent?, pad, COPD, lung ca s/p lobectomy, hyperparathyroidism (recent parathyroid scan suspicious for parathyroid adenoma) who p/w hematuria and weakness and noted to have uncontrolled HTN. uncontrolled HTN - Presented with sbp's > 200. asx. Now improved after receiving all of her outpatient medications and one dose of IV hydralazine. Patient had recently self -d/c 2 medications: believed one medication was for copd and one was valsartan. Had also been on clonidine in the past, but not on her most recent med list. Unclear if this is rebound htn vs. other etiology. Patient with possible parathyroid adenoma, secondary htn 2/2 parathyroid disease?. - ce's neg x 2. - utox + for opiates, tsh wnl. - repeat echo. - 11/25: BP improved today. hydralazine 50 tid added to regimen. would decrease coreg to bid dosing. con't to monitor. sob/copd/acute diastolic hf exacerbation - bp control as above. - tx of possible copd component per pmd, pulm. - cxr with increased congestive changes. BNP elevated. s/p iv lasix 40 mg 11/24 and 11/25. BMP stable, would con't daily iv lasix. repeat echo. - daily weights, i/o's, bmp's. afib/avr/mvr with h/o CVA? - coumadin dosing per inr. currently supratherapeutic with hematuria/UTI. Hgb stable. tx of UTI per pmd, s/p vit k today 11/25 - currently rate controlled on home high dose coreg 25 tid?, dilt and dig ( level ok). will decrease coreg dose to typical bid dosing. lyte repletion prn. - will need to obtain records on valve surgery, mechanical vs. bioprosthetic to determine INR goals. --> , check echo. cad? - will need to clarify history. - ce's neg x 2. ekg without acute ischemic changes. con't plavix. Not on statin as outpatient?, will try to obtain records. In the meanwhile, started atorva 10. pad - on plavix in addition to coumadin, hgb stable. + tobacco - cessation counseling
[2017-11-25] MEDS: VALSARTAN 160 MG TABLET (UD) PO SCH (21:27)
[2017-11-25] MEDS: ATORVASTATIN CA 10 MG TABLET (FP) PO SCH (21:27)
[2017-11-26] MEDS: methylPREDNISolone NA SUCC 40 MG/1 ML VIAL IVPUSH SCH ×3 (02:20→17:30)
[2017-11-26] MEDS: hydrALAZINE HCL 50 MG TABLET (FP) PO SCH ×3 (06:16→21:54)
[2017-11-26] MEDS ORDERED: ACETAMINOPHEN 325 MG TABLET (FP) PO PRN (06:56)
[2017-11-26] MEDS: HEPARIN - 25,000 UNIT in SODIUM CHLORIDE 495 ML IV SCH (07:00)
[2017-11-26] MEDS: ALBUTEROL SO4 2.5/IPRATROPIUM 0.5 INH SOL 3 ML VIAL.NEB. NEB SCH ×4 (07:30→20:15)
[2017-11-26 07:46] LABS: BASO % 0.1 % (0-2.0); HEMATOCRIT 34.8 % (32.4-45.2); HEMOGLOBIN 11.4 GM/dL (10.7-15.3); LYMPH % 2.4 % (8-40); MCH 28.5 pg (25.7-33.7); MCHC 32.8 g/dl (32.0-36.0); MEAN CELL VOLUME 86.9 fl (80-96); NEUT % 94.5 % (42.8-82.8); PLATELET COUNT 165 K/MM3 (134-434); RBC 4.01 M/mm3 (3.60-5.2); RDW 15.2 % (11.6-15.6); WHITE BLOOD COUNT 13.7 K/mm3 (4.0-10.0)
[2017-11-26 08:17] LABS: ANION GAP 8 (8-16); BLOOD UREA NITROGEN 26 mg/dL (7-18); CALCIUM 10.2 mg/dL (8.5-10.1); CHLORIDE 107 mmol/L (98-107); CO2 27 mmol/L (21-32); CREATININE 1.2 mg/dL (0.55-1.02); GLUCOSE,RANDOM 146 mg/dL (74-106); MAGNESIUM 2.4 mg/dL (1.8-2.4); SODIUM 142 mmol/L (136-145)
[2017-11-26 08:21] LABS: INR 1.83 (0.82-1.09); PROTHROMBIN TIME (PATIENT) 20.7 SEC (9.7-13.0)
[2017-11-26] MEDS ORDERED: DEXTROSE 5%-WATER - 50 ML IVPB ONE (09:24)
[2017-11-26] MEDS ORDERED: cefTRIAXone SODIUM 1 GM VIAL ONE (09:24)
[2017-11-26] MEDS: CARVEDILOL 25 MG TABLET (FP) PO SCH ×2 (09:50→21:54)
[2017-11-26] MEDS: CLOPIDOGREL BISULFATE 75 MG TABLET (FP) PO SCH (09:50)
[2017-11-26] MEDS: CEFTRIAXONE 1 GM in DEXTROSE 5%-WATER - 50 ML IVPB SCH (09:51)
[2017-11-26] MEDS: DIGOXIN 0.125 MG TABLET (FP) PO SCH (09:51)
[2017-11-26] MEDS: amLODIPine BESYLATE 5 MG TABLET (FP) PO SCH (09:51)
[2017-11-26] MEDS: RANITIDINE HCL 150 MG TABLET (FP) PO SCH ×2 (09:51→21:54)
[2017-11-26] MEDS ORDERED: FUROSEMIDE 40 MG/4 ML INJECTABLE VIAL IVPUSH SCH (10:00)
--- NOTE | 2017-11-26 11:50 | PN ---
Progress Note, Physician History of Present Illness: PULMONARY ALERT,LESS DYSPNEIC. - Current Medication List Current Medications: Active Medications Acetaminophen (Tylenol -) 650 mg PO Q8H PRN PRN Reason: PAIN LEVEL 6-10 Albuterol Sulfate (Ventolin Hfa Inhaler -) 2 puff IH QID [facility] Last Admin: 11/25/17 22:22 Dose: Not Given Albuterol/Ipratropium (Duoneb -) 1 amp NEB RQID [facility] Last Admin: 11/26/17 07:30 Dose: 1 amp Amlodipine Besylate (Norvasc -) 5 mg PO DAILY [facility] Last Admin: 11/26/17 09:51 Dose: 5 mg Atorvastatin Calcium (Lipitor -) 10 mg PO HS [facility] Last Admin: 11/25/17 21:27 Dose: 10 mg Carvedilol (Coreg -) 25 mg PO BID [facility] Last Admin: 11/26/17 09:50 Dose: 25 mg Clopidogrel Bisulfate (Plavix -) 75 mg PO DAILY [facility] Last Admin: 11/26/17 09:50 Dose: 75 mg Digoxin (Lanoxin -) 0.125 mg PO DAILY [facility] Last Admin: 11/26/17 09:51 Dose: 0.125 mg Diltiazem HCl (Cardizem Cd -) 180 mg PO HS [facility] Last Admin: 11/25/17 21:27 Dose: 180 mg Fluticasone Propionate (Flonase -) 1 spray NS BID [facility] Last Admin: 11/25/17 22:21 Dose: 1 spray Furosemide (Lasix Injection -) 40 mg IVPUSH DAILY [facility] Last Admin: 11/26/17 09:50 Dose: 40 mg Hydralazine HCl (Apresoline -) 50 mg PO TID [facility] Last Admin: 11/26/17 06:16 Dose: 50 mg Ceftriaxone Sodium 1 gm/ (Dextrose) 50 mls @ 100 mls/hr IVPB DAILY [facility] Last Admin: 11/26/17 09:51 Dose: 100 mls/hr Methylprednisolone Sodium Succinate (Solu-Medrol -) 40 mg IVPUSH Q8H-IV [facility] Last Admin: 11/26/17 09:50 Dose: 40 mg Ranitidine HCl (Zantac -) 150 mg PO BID [facility] Last Admin: 11/26/17 09:51 Dose: 150 mg Valsartan (Diovan -) 160 mg PO HS [facility] Last Admin: 05/28/18 21:27 Dose: 160 mg - Objective Vital Signs: Vital Signs Temperature 98.7 F 11/26/17 05:00 Pulse Rate 92 H 11/26/17 09:51 Respiratory Rate 18 11/26/17 05:00 Blood Pressure 147/77 11/26/17 05:00 O2 Sat by Pulse Oximetry (%) 99 11/25/17 21:00 Constitutional: Yes: Calm, Thin Eyes: Yes: WNL HENT: Yes: WNL Neck: Yes: WNL Cardiovascular: Yes: Pulse Irregular, S1, S2 Respiratory: Yes: Wheezes (BILATERAL WHEEZES) Gastrointestinal: Yes: Normal Bowel Sounds, Soft Extremities: Yes: WNL Edema: No Labs: CBC, BMP 11/26/17 06:00 11/26/17 06:00 INR, PTT INR 1.83 (0.82-1.09) H D 11/26/17 06:00 Assessment/Plan Problem List - Problems (1) Hematuria Code(s): R31.9 - HEMATURIA, UNSPECIFIED (2) UTI (urinary tract infection) Code(s): N39.0 - URINARY TRACT INFECTION, SITE NOT SPECIFIED Qualifiers: Urinary tract infection type: site unspecified Hematuria presence: with hematuria Qualified Code(s): N39.0 - Urinary tract infection, site not specified; R31.9 - Hematuria, unspecified (3) Supratherapeutic INR Code(s): R79.1 - ABNORMAL COAGULATION PROFILE (4) S/P AVR (aortic valve replacement) Code(s): Z95.2 - PRESENCE OF PROSTHETIC HEART VALVE (5) S/P MVR (mitral valve replacement) Code(s): Z95.2 - PRESENCE OF PROSTHETIC HEART VALVE (6) A-fib Code(s): I48.91 - UNSPECIFIED ATRIAL FIBRILLATION Qualifiers: Atrial fibrillation type: chronic Qualified Code(s): I48.2 - Chronic atrial fibrillation (7) ASHD (arteriosclerotic heart disease) Code(s): I25.10 - ATHSCL HEART DISEASE OF [place] CORONARY ARTERY W/O ANG PCTRS (8) HTN (hypertension) Code(s): I10 - ESSENTIAL (PRIMARY) HYPERTENSION (9) COPD exacerbation Code(s): J44.1 - CHRONIC OBSTRUCTIVE PULMONARY DISEASE W (ACUTE) EXACERBATION (10) CHF (congestive heart failure) Code(s): I50.9 - HEART FAILURE, UNSPECIFIED Qualifiers: Heart failure type: unspecified Heart failure chronicity: acute on chronic Qualified Code(s): I50.9 - Heart failure, unspecified Assessment/Plan Hematuria UTI Supratherapeutic INR corrected Acute COPD Exacerbation CHF Exacerbation CAD Atrial Fibrillation s/p MVR/AVR - antibiotics - monitor H/H, INR - transfuse as needed - medrol - inhaled bronchodilators - lasix - monitor urine output, creatinine - echocardiogram - f/u chest x-ray DR GUZMAN
[2017-11-26] MEDS: ALBUTEROL SO4 18 GM HFA INHALER IH SCH ×2 (12:28→15:14)
[2017-11-26] MEDS: FLUTICASONE PROP 0.05% 16 GM NASAL SPRAY NS SCH ×2 (12:29→21:55)
--- NOTE | 2017-11-26 13:17 | PN ---
Progress Note, Physician Chief Complaint: Ms Bruna says she is feeling better. Still with shortness of breath but much improved from admission. No cp or n/v. - Current Medication List Current Medications: Active Medications Acetaminophen (Tylenol -) 650 mg PO Q8H PRN PRN Reason: PAIN LEVEL 6-10 Albuterol Sulfate (Ventolin Hfa Inhaler -) 2 puff IH QID [facility] Last Admin: 11/26/17 12:28 Dose: Not Given Albuterol/Ipratropium (Duoneb -) 1 amp NEB RQID [facility] Last Admin: 11/26/17 07:30 Dose: 1 amp Amlodipine Besylate (Norvasc -) 5 mg PO DAILY [facility] Last Admin: 11/26/17 09:51 Dose: 5 mg Atorvastatin Calcium (Lipitor -) 10 mg PO HS [facility] Last Admin: 11/25/17 21:27 Dose: 10 mg Carvedilol (Coreg -) 25 mg PO BID [facility] Last Admin: 11/26/17 09:50 Dose: 25 mg Clopidogrel Bisulfate (Plavix -) 75 mg PO DAILY [facility] Last Admin: 11/26/17 09:50 Dose: 75 mg Digoxin (Lanoxin -) 0.125 mg PO DAILY [facility] Last Admin: 11/26/17 09:51 Dose: 0.125 mg Diltiazem HCl (Cardizem Cd -) 180 mg PO HS [facility] Last Admin: 11/25/17 21:27 Dose: 180 mg Fluticasone Propionate (Flonase -) 1 spray NS BID [facility] Last Admin: 11/26/17 12:29 Dose: 1 spray Furosemide (Lasix Injection -) 40 mg IVPUSH DAILY [facility] Last Admin: 11/26/17 09:50 Dose: 40 mg Hydralazine HCl (Apresoline -) 50 mg PO TID [facility] Last Admin: 11/26/17 06:16 Dose: 50 mg Ceftriaxone Sodium 1 gm/ (Dextrose) 50 mls @ 100 mls/hr IVPB DAILY [facility] Last Admin: 11/26/17 09:51 Dose: 100 mls/hr Methylprednisolone Sodium Succinate (Solu-Medrol -) 40 mg IVPUSH Q8H-IV [facility] Last Admin: 11/26/17 09:50 Dose: 40 mg Ranitidine HCl (Zantac -) 150 mg PO BID [facility] Last Admin: 11/26/17 09:51 Dose: 150 mg Valsartan (Diovan -) 160 mg PO HS [facility] Last Admin: 11/25/17 21:27 Dose: 160 mg - Objective Vital Signs: Vital Signs Temperature 37.1 C 11/26/17 05:00 Pulse Rate 92 H 11/26/17 09:51 Respiratory Rate 18 11/26/17 05:00 Blood Pressure 147/77 11/26/17 05:00 O2 Sat by Pulse Oximetry (%) 99 11/25/17 21:00 Constitutional: Yes: Well Nourished, No Distress, Calm Cardiovascular: Yes: Regular Rate and Rhythm. No: Gallop, Murmur, Rub Respiratory: Yes: Regular, Cough, On Nasal O2, Rhonchi (slight, bibasilar), Wheezes. No: CTA Bilaterally, Rales Gastrointestinal: Yes: Normal Bowel Sounds, Soft. No: Distention, Tenderness Extremities: Yes: WNL Edema: No Labs: CBC, BMP 11/26/17 06:00 11/26/17 06:00 INR, PTT INR 1.83 (0.82-1.09) H D 11/26/17 06:00 Problem List - Problems (1) CHF exacerbation Assessment/Plan: -patient presents with CHF exacerbation -appreciate cardiology assistance -continue IV lasix -patient improving Code(s): I50.9 - HEART FAILURE, UNSPECIFIED Qualifiers: Heart failure type: systolic Qualified Code(s): I50.23 - Acute on chronic systolic (congestive) heart failure (2) COPD exacerbation Assessment/Plan: -also with COPD exacerbation, wheezing heard on exam -pulmonary following -continue solumedrol and duonebs Code(s): J44.1 - CHRONIC OBSTRUCTIVE PULMONARY DISEASE W (ACUTE) EXACERBATION (3) UTI (urinary tract infection) Assessment/Plan: -growing klebsiella, sensitive to cephalosporins -continue rocephin currently -hematuria resolved with correction of INR and UTI treatment -will need 7 day course of cephalosporins Code(s): N39.0 - URINARY TRACT INFECTION, SITE NOT SPECIFIED Qualifiers: Urinary tract infection type: site unspecified Hematuria presence: with hematuria Qualified Code(s): N39.0 - Urinary tract infection, site not specified; R31.9 - Hematuria, unspecified (4) A-fib Assessment/Plan: -rate controlled -restart coumadin Code(s): I48.91 - UNSPECIFIED ATRIAL FIBRILLATION Qualifiers: Atrial fibrillation type: chronic Qualified Code(s): I48.2 - Chronic atrial fibrillation (5) HTN (hypertension) Assessment/Plan: -controlled -continue current management Code(s): I10 - ESSENTIAL (PRIMARY) HYPERTENSION (6) Coumadin toxicity Assessment/Plan: -reversed -restart coumadin -patient unclear if she has mechanical or bioprosthetic valve replacement -contact Dr Krause to see if has type of valve replacement -may need heparin gtt Code(s): T45.511A - POISONING BY ANTICOAGULANTS, ACCIDENTAL, INIT Qualifiers: Encounter type: initial encounter Injury intent: accidental or unintentional Qualified Code(s): T45.511A - Poisoning by anticoagulants, accidental (unintentional), initial encounter (7) ASHD (arteriosclerotic heart disease) Assessment/Plan: -quiescent -continue current management Code(s): I25.10 - ATHSCL HEART DISEASE OF [place] CORONARY ARTERY W/O ANG PCTRS
[2017-11-26] MEDS ORDERED: HEPARIN NA (PORCINE) 5,000 UNITS/ML 1ML VIAL IVPUSH PRN ×2 (16:46)
[2017-11-26] MEDS: WARFARIN NA 5 MG TABLET (UD) PO SCH (17:30)
[2017-11-26] MEDS ORDERED: PT OWN MED DRAWER 7, Y5N ONE (21:50)
[2017-11-26] MEDS: VALSARTAN 160 MG TABLET (UD) PO SCH (21:54)
[2017-11-26] MEDS: ATORVASTATIN CA 10 MG TABLET (FP) PO SCH (21:54)
--- NOTE | 2017-11-26 22:08 | PN ---
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 Had decreased coreg to bid dosing but cardiology office records confirm she was on bid dosing and that her valsartan dose was 320 mg. However, patient states tid dosing was difficult for adherence and she believes the higher dose of valsartan was giving her side effects so she would like to continue her meds as they are now. feels better today. no cp, palps, sob, dizziness. per pmd, received vitamin k yesterday. INR subtherapeutic this morning, started on heparin drip. Current Medications Acetaminophen (Tylenol -) 650 mg PO Q8H PRN PRN Reason: PAIN LEVEL 6-10 Albuterol Sulfate (Ventolin Hfa Inhaler -) 2 puff IH QID [facility] Last Admin: 11/26/17 15:14 Dose: Not Given Albuterol/Ipratropium (Duoneb -) 1 amp NEB RQID [facility] Last Admin: 11/26/17 20:15 Dose: 1 amp Amlodipine Besylate (Norvasc -) 5 mg PO DAILY [facility] Last Admin: 11/26/17 09:51 Dose: 5 mg Atorvastatin Calcium (Lipitor -) 10 mg PO HS [facility] Last Admin: 11/26/17 21:54 Dose: 10 mg Carvedilol (Coreg -) 25 mg PO BID [facility] Last Admin: 11/26/17 21:54 Dose: 25 mg Clopidogrel Bisulfate (Plavix -) 75 mg PO DAILY [facility] Last Admin: 11/26/17 09:50 Dose: 75 mg Digoxin (Lanoxin -) 0.125 mg PO DAILY [facility] Last Admin: 11/26/17 09:51 Dose: 0.125 mg Diltiazem HCl (Cardizem Cd -) 180 mg PO HS [facility] Last Admin: 11/26/17 21:54 Dose: 180 mg Fluticasone Propionate (Flonase -) 1 spray NS BID [facility] Last Admin: 11/26/17 21:55 Dose: 1 spray Furosemide (Lasix Injection -) 40 mg IVPUSH DAILY [facility] Last Admin: 11/26/17 09:50 Dose: 40 mg Heparin Sodium (Porcine) (Heparin -) 1,000 unit IVPUSH PRN PRN PRN Reason: Heparin Heparin Sodium (Porcine) (Heparin -) 5,000 unit IVPUSH PRN PRN PRN Reason: Heparin Hydralazine HCl (Apresoline -) 50 mg PO TID [facility] Last Admin: 11/26/17 21:54 Dose: 50 mg Ceftriaxone Sodium 1 gm/ (Dextrose) 50 mls @ 100 mls/hr IVPB DAILY [facility] Last Admin: 11/26/17 09:51 Dose: 100 mls/hr Heparin Sodium (Porcine) 25, (000 unit/ Sodium Chloride) 500 mls @ 16 mls/hr IV TITR JOHN; Protocol Last Admin: 11/26/17 07:00 Dose: 800 unit/hr, 16 mls/hr Methylprednisolone Sodium Succinate (Solu-Medrol -) 40 mg IVPUSH Q8H-IV [facility] Last Admin: 11/26/17 17:30 Dose: 40 mg Ranitidine HCl (Zantac -) 150 mg PO BID [facility] Last Admin: 11/26/17 21:54 Dose: 150 mg Valsartan (Diovan -) 160 mg PO HS [facility] Last Admin: 11/26/17 21:54 Dose: 160 mg Warfarin Sodium (Coumadin -) 5 mg PO DAILY@1800 [facility] Last Admin: 11/26/17 17:30 Dose: 5 mg Allergies: amiodarone, asa, lisinopril (angioedema) Vital Signs - 24 hr 11/26/17 11/26/17 11/26/17 01:00 05:00 09:51 Temperature 98.0 F 98.7 F Pulse Rate 97 H 86 92 H Respiratory 18 18 Rate Blood Pressure 149/97 147/77 O2 Sat by Pulse Oximetry (%) 11/26/17 11/26/17 11/26/17 10:00 14:22 18:28 Temperature 98.2 F 97.9 F 97.6 F Pulse Rate 92 H 99 H 104 H Respiratory 18 18 18 Rate Blood Pressure 137/86 124/74 145/93 O2 Sat by Pulse 99 Oximetry (%) Intake & Output 11/24/17 11/25/17 11/26/17 11/27/17 07:59 07:59 07:59 07:59 Intake Total 280 700 700 Balance 280 700 700 Weight 125 lb 125 lb 137 lb NAD, calm JVD flat, neck supple diminished air mov't. + wheezes, nl effort irregularly, irregular nl s1, s2. mechanical s1, s2. + bs soft nt nd ext without e/c/c diminished dp/pt, no carotid bruits no jaundice, diaphoresis aaox3 CBC, BMP 11/26/17 06:00 11/26/17 06:00 ekg: afib with pvc, VR 100 bpm. LVH. non-sp t wave ab. no acute ischenmic changes. tele: afib, HR's slightly higher 90's-110's. cxr: new congestive changes with bibasilar infiltrates and pleural effusions R> L. possible bibasilar atelectasis. prominent hilar markings. left apical pleural thickening. NAT scarring. vascular stent at left clavicle. 07/2017 parathyroid scan: focus of abnormal tracer suspcious for parathyroid adenoma. assessment/plan 67 yo smoker with h/o mechanical mvr and avr (presumed mechanical, but no mention of avr in cardiology notes) 2/2 rheumatic heart disease, HFpEF, Afib with h/o cva and residual dysphagia, HTN, HL, CAD wth h/o [place] (no mention of pci in cardiology notes), pad with hx of subclavian stent and possibly also fem-pop bypass, COPD, lung ca s/p resection, chemo and xrt, pud, hyperparathyroidism ( recent parathyroid scan suspicious for parathyroid adenoma), recent renal doppler suspicious for renal artery stenosis who p/w hematuria and weakness and noted to have uncontrolled HTN. uncontrolled HTN - Presented with sbp's > 200. asx. Now improved after receiving all of her outpatient medications and one dose of IV hydralazine. Patient had recently self -d/c 2 medications: believed one medication was for copd and one was valsartan. Had also been on clonidine in the past, but not on her most recent med list. Unclear if this is rebound htn vs. other etiology. Patient with possible parathyroid adenoma, secondary htn 2/2 parathyroid disease?. - ce's neg x 2. - utox + for opiates, tsh wnl. - repeat echo pending. - 11/25: BP improved today. hydralazine 50 tid added to regimen. would decrease coreg to bid dosing. con't to monitor. - 11/26 bp remains improved but HR rising, per patient preference will increase diltiazem to bid dosing. Can stop norvasc if bp goes to low. sob/copd/acute diastolic hf exacerbation - bp control as above. - tx of possible copd component per pmd, pulm. - cxr with increased congestive changes. BNP elevated. s/p iv lasix 40 mg 11/24 -11/26. repeat echo pending. - Cr rising on daily iv lasix. will transition back to home chlorthalidone. - daily weights, i/o's, bmp's. afib/avr/mvr with h/o CVA? - coumadin dosing per inr. initially supratherapeutic with hematuria/UTI. Hgb stable. tx of UTI per pmd, s/p vit k 11/25 - confirmed patient with mechanical mvr, details of avr still unknown. (GOAL INR 2.5 -3.5) Discussed with pmd today. INR know subtherapeutic --> started on heparin bridge. hematuria stable. - rate control slightly worse after decreasing tid coreg to bid. remains on dilt and dig (level ok). will inc dilt to bid dosing. lyte repletion prn. -echo pending.. cad with hx of mi, no mention of prior intervention on outpatient cardiology notes. - ce's neg x 2. ekg without acute ischemic changes. con't plavix. Was not on statin as outpatient?, started atorva 1 here . pad s/p subclavian stent and possible fem-pop bypass - on plavix in addition to coumadin, hgb stable. con't statin. smoking cessation counseling. + tobacco - cessation counseling
[2017-11-27] MEDS: ALBUTEROL SO4 18 GM HFA INHALER IH SCH ×3 (01:15→09:30)
[2017-11-27] MEDS: methylPREDNISolone NA SUCC 40 MG/1 ML VIAL IVPUSH SCH ×3 (01:17→17:27)
[2017-11-27] MEDS: hydrALAZINE HCL 50 MG TABLET (FP) PO SCH ×3 (05:52→23:06)
[2017-11-27 07:24] LABS: BASO % 0.1 % (0-2.0); HEMATOCRIT 33.5 % (32.4-45.2); HEMOGLOBIN 10.9 GM/dL (10.7-15.3); LYMPH % 2.1 % (8-40); MCH 28.2 pg (25.7-33.7); MCHC 32.5 g/dl (32.0-36.0); MEAN CELL VOLUME 86.7 fl (80-96); MEAN PLT VOLUME 9.9 fl (7.5-11.1); MONO % 4.3 % (3.8-10.2); NEUT % 93.5 % (42.8-82.8); PLATELET COUNT 155 K/MM3 (134-434); RBC 3.86 M/mm3 (3.60-5.2); RDW 15.5 % (11.6-15.6); WHITE BLOOD COUNT 13.7 K/mm3 (4.0-10.0)
[2017-11-27 07:32] LABS: INR 1.44 (0.82-1.09); PROTHROMBIN TIME (PATIENT) 16.3 SEC (9.7-13.0)
[2017-11-27 07:49] LABS: CHLORIDE 109 mmol/L (98-107); POTASSIUM 3.5 mmol/L (3.5-5.1); SODIUM 143 mmol/L (136-145)
[2017-11-27] MEDS: ALBUTEROL SO4 2.5/IPRATROPIUM 0.5 INH SOL 3 ML VIAL.NEB. NEB SCH ×4 (08:00→21:20)
[2017-11-27 08:03] LABS: ANION GAP 7 (8-16); BLOOD UREA NITROGEN 32 mg/dL (7-18); CALCIUM 9.8 mg/dL (8.5-10.1); CO2 27 mmol/L (21-32); CREATININE 1.2 mg/dL (0.55-1.02); GLUCOSE,RANDOM 153 mg/dL (74-106); MAGNESIUM 2.1 mg/dL (1.8-2.4); PHOSPHOROUS 2.3 mg/dL (2.5-4.9)
[2017-11-27] MEDS ORDERED: PT OWN MED DRAWER 7, Y5N ONE (08:55)
[2017-11-27] MEDS ORDERED: cefTRIAXone SODIUM 1 GM VIAL ONE (08:55)
[2017-11-27] MEDS ORDERED: DEXTROSE 5%-WATER - 50 ML IVPB ONE (08:56)
[2017-11-27] MEDS: CHLORTHALIDONE 25 MG TABLET PO SCH (09:28)
[2017-11-27] MEDS: CLOPIDOGREL BISULFATE 75 MG TABLET (FP) PO SCH (09:28)
[2017-11-27] MEDS: RANITIDINE HCL 150 MG TABLET (FP) PO SCH ×2 (09:28→23:09)
[2017-11-27] MEDS: CARVEDILOL 25 MG TABLET (FP) PO SCH ×2 (09:28→23:06)
[2017-11-27] MEDS: DIGOXIN 0.125 MG TABLET (FP) PO SCH (09:28)
[2017-11-27] MEDS: amLODIPine BESYLATE 5 MG TABLET (FP) PO SCH (09:28)
[2017-11-27] MEDS: CEFTRIAXONE 1 GM in DEXTROSE 5%-WATER - 50 ML IVPB SCH (09:33)
[2017-11-27] MEDS: FLUTICASONE PROP 0.05% 16 GM NASAL SPRAY NS SCH ×2 (09:34→23:09)
--- NOTE | 2017-11-27 11:18 | PN ---
Progress Note (short form) - Note Progress Note: CC: HTN S: no cp, palps, sob, dizziness Current Medications Generic Name Dose Route Start Last Admin Trade Name Freq PRN Reason Stop Dose Admin Acetaminophen 650 mg 11/26/17 06:56 Tylenol - PO Q8H PRN PAIN LEVEL 6-10 Albuterol Sulfate 2 puff 11/24/17 10:00 11/27/17 09:30 Ventolin Hfa Inhaler - IH Not Given QID JOHN Albuterol/Ipratropium 1 amp 11/24/17 12:00 11/27/17 08:00 Duoneb - NEB 1 amp RQID JOHN Administration Amlodipine Besylate 5 mg 11/24/17 15:30 11/27/17 09:28 Norvasc - PO 5 mg DAILY JOHN Administration Atorvastatin Calcium 10 mg 11/25/17 22:00 11/26/17 21:54 Lipitor - PO 10 mg HS JOHN Administration Carvedilol 25 mg 11/25/17 22:00 11/27/17 09:28 Coreg - PO 25 mg BID JOHN Administration Chlorthalidone 25 mg 11/27/17 10:00 11/27/17 09:28 [place] - PO 25 mg DAILY JOHN Administration Clopidogrel Bisulfate 75 mg 11/24/17 10:00 11/27/17 09:28 Plavix - PO 75 mg DAILY JOHN Administration Digoxin 0.125 mg 11/24/17 10:00 11/27/17 09:28 Lanoxin - PO 0.125 mg DAILY JOHN Administration Diltiazem HCl 180 mg 11/27/17 10:00 11/27/17 09:28 Cardizem Cd - PO 180 mg BID JOHN Administration Fluticasone Propionate 1 spray 11/25/17 11:45 11/27/17 09:34 Flonase - NS Not Given BID JOHN Heparin Sodium (Porcine) 1,000 unit 11/26/17 16:46 Heparin - IVPUSH PRN PRN Heparin Heparin Sodium (Porcine) 5,000 unit 11/26/17 16:46 Heparin - IVPUSH PRN PRN Heparin Hydralazine HCl 50 mg 11/24/17 22:00 11/27/17 05:52 Apresoline - PO 50 mg TID JOHN Administration Ceftriaxone Sodium 1 gm/ 50 mls @ 100 mls/hr 11/24/17 10:00 11/27/17 09:33 Dextrose IVPB 100 mls/hr DAILY JOHN Administration Heparin Sodium (Porcine) 25, 500 mls @ 16 mls/hr 11/26/17 17:00 11/26/17 07: 00 000 unit/ Sodium Chloride IV 800 unit/hr TITR JOHN 16 mls/hr Administration Protocol 800 UNIT/HR Methylprednisolone Sodium Succinate 40 mg 11/24/17 15:30 11/27/17 09:29 Solu-Medrol - IVPUSH 40 mg Q8H-IV JOHN Administration Ranitidine HCl 150 mg 11/24/17 22:00 11/27/17 09:28 Zantac - PO 150 mg BID JOHN Administration Valsartan 160 mg 11/24/17 22:00 11/26/17 21:54 Diovan - PO 160 mg HS JOHN Administration Warfarin Sodium 5 mg 11/26/17 18:00 11/26/17 17:30 Coumadin - PO 5 mg DAILY@1800 JOHN Administration Vital Signs Period Temp Pulse Resp BP Sys/Barcenas Pulse Ox Last 24 Hr 97.6 F-97.9 F 88-122 18-18 124-160/74-99 100 NAD, calm JVD flat, neck supple diminished air mov't. + wheezes, nl effort irregularly, irregular nl s1, s2. mechanical s1, s2. + bs soft nt nd ext without e/c/c no jaundice, diaphoresis aaox3 Laboratory Last Values WBC 13.7 K/mm3 (4.0-10.0) H 11/27/17 06:30 RBC 3.86 M/mm3 (3.60-5.2) 11/27/17 06:30 Hgb 10.9 GM/dL (10.7-15.3) 11/27/17 06:30 Hct 33.5 % (32.4-45.2) 11/27/17 06:30 MCV 86.7 fl (80-96) 11/27/17 06:30 MCH 28.2 pg (25.7-33.7) 11/27/17 06:30 MCHC 32.5 g/dl (32.0-36.0) 11/27/17 06:30 RDW 15.5 % (11.6-15.6) 11/27/17 06:30 Plt Count 155 K/MM3 (134-434) 11/27/17 06:30 MPV 9.9 fl (7.5-11.1) 11/27/17 06:30 Neutrophils % 93.5 % (42.8-82.8) H 11/27/17 06:30 Neutrophils % (Manual) 96.0 % (42.8-82.8) H 11/26/17 06:00 Band Neutrophils % 0.0 % 11/26/17 06:00 Lymphocytes % 2.1 % (8-40) L 11/27/17 06:30 Lymphocytes % (Manual) 3.0 % (8-40) L 11/26/17 06:00 Monocytes % 4.3 % (3.8-10.2) 11/27/17 06:30 Monocytes % (Manual) 1 % (3.8-10.2) L 11/26/17 06:00 Eosinophils % 0.0 % (0-4.5) 11/27/17 06:30 Eosinophils % (Manual) 0.0 % (0-4.5) 11/26/17 06:00 Basophils % 0.1 % (0-2.0) 11/27/17 06:30 Basophils % (Manual) 0.0 % (0-2.0) 11/26/17 06:00 Myelocytes % (Man) 0 % (0-2) 11/26/17 06:00 Promyelocytes % (Man) 0 % (0-2) 11/26/17 06:00 Blast Cells % (Manual) 0 % (0-0) 11/26/17 06:00 Nucleated RBC % 0 % (0-0) 11/27/17 06:30 Metamyelocytes 0 % (0-2) 11/26/17 06:00 PT with INR 16.30 SEC (9.7-13.0) H 11/27/17 06:30 INR 1.44 (0.82-1.09) H 11/27/17 06:30 PTT (Actin FS) 60.5 SECONDS (26.9-34.4) H 11/27/17 01:00 VBG pH 7.39 (7.32-7.42) 11/24/17 05:50 POC VBG pCO2 41.7 mmHg (38-52) 11/24/17 05:50 POC VBG pO2 42.1 mmHg (28-48) 11/24/17 05:50 Mixed VBG HCO3 24.7 meq/L (19-25) 11/24/17 05:50 Sodium 143 mmol/L (136-145) 11/27/17 06:30 Potassium 3.5 mmol/L (3.5-5.1) 11/27/17 06:30 Chloride 109 mmol/L (98-107) H 11/27/17 06:30 Carbon Dioxide 27 mmol/L (21-32) 11/27/17 06:30 Anion Gap 7 (8-16) L 11/27/17 06:30 BUN 32 mg/dL (7-18) H 11/27/17 06:30 Creatinine 1.2 mg/dL (0.55-1.02) H 11/27/17 06:30 Creat Clearance w eGFR 55.14 (>60) 11/24/17 05:50 Random Glucose 153 mg/dL (74-106) H 11/27/17 06:30 Lactic Acid 1.3 mmol/L (0.0-2.0) 11/24/17 05:50 Calcium 9.8 mg/dL (8.5-10.1) 11/27/17 06:30 Phosphorus 2.3 mg/dL (2.5-4.9) L 11/27/17 06:30 Magnesium 2.1 mg/dL (1.8-2.4) 11/27/17 06:30 Total Bilirubin 0.9 mg/dL (0.2-1.0) D 11/24/17 05:50 AST 21 U/L (15-37) 11/24/17 05:50 ALT 13 U/L (12-78) 11/24/17 05:50 Alkaline Phosphatase 139 U/L (45-117) H 11/24/17 05:50 Creatine Kinase 77 IU/L (26-192) 11/24/17 21:30 Troponin I < 0.02 ng/ml (0.00-0.05) 11/24/17 21:30 B-Natriuretic Peptide 7117.90 pg/ml (5-125) H 11/24/17 05:50 Total Protein 6.3 g/dl (6.4-8.2) L 11/24/17 05:50 Albumin 3.4 g/dl (3.4-5.0) 11/24/17 05:50 TSH 0.63 uIU/ml (0.358-3.74) 11/24/17 21:30 Urine Color Red 11/24/17 06:40 Urine Appearance Cloudy 11/24/17 06:40 Urine pH 6.0 (5.0-8.0) 11/24/17 06:40 Ur Specific [place] 1.012 (1.001-1.035) 11/24/17 06:40 Urine Protein 2+ (NEGATIVE) H 11/24/17 06:40 Urine Glucose (UA) Negative (NEGATIVE) 11/24/17 06:40 Urine Ketones Negative (NEGATIVE) 11/24/17 06:40 Urine Blood 3+ (NEGATIVE) H 11/24/17 06:40 Urine Nitrite Negative (NEGATIVE) 11/24/17 06:40 Urine Bilirubin Negative (<2.0 mg/dL) 11/24/17 06:40 Urine Urobilinogen Negative mg/dL (0.2-1.0) 11/24/17 06:40 Ur Leukocyte Esterase Negative (NEGATIVE) 11/24/17 06:40 Urine WBC (Auto) 1491 /hpf (3-5) 11/24/17 06:40 Urine RBC (Auto) 2549 /hpf (0-3) 11/24/17 06:40 Urine Bacteria Many /hpf (NONE SEEN) 11/24/17 06:40 Digoxin 0.5656 ng/ml (0.8-2.0) L 11/24/17 05:50 Opiates Screen Positive ng/ml (OZAHPU=146) 11/24/17 22:02 Methadone Screen Negative ng/ml (WZCRKR=799) 11/24/17 22:02 Barbiturate Screen Negative ng/ml (IQFCXF=851) 11/24/17 22:02 Phencyclidine Screen Negative ng/ml (CUTOFF=25) 11/24/17 22:02 Ur Amphetamines Screen Negative ng/ml (ILMTLM=399) 11/24/17 22:02 MDMA (Ecstasy) Screen Negative ng/ml (QZRVMI=937) 11/24/17 22:02 Benzodiazepines Screen Negative ng/ml (BDYXSX=724) 11/24/17 22:02 Cocaine Screen Negative ng/ml (QOCDBC=689) 11/24/17 22:02 U Marijuana (THC) Screen Negative ng/ml (CUTOFF=50) 11/24/17 22:02 ekg: afib with pvc, VR 100 bpm. LVH. non-sp t wave ab. no acute ischenmic changes. tele: afib, rate ok cxr: new congestive changes with bibasilar infiltrates and pleural effusions R> L. possible bibasilar atelectasis. prominent hilar markings. left apical pleural thickening. NAT scarring. vascular stent at left clavicle. 07/2017 parathyroid scan: focus of abnormal tracer suspicious for parathyroid adenoma. assessment/plan 67 yo smoker with h/o mechanical mvr and avr (presumed mechanical, but no mention of avr in cardiology notes) 2/2 rheumatic heart disease, HFpEF, Afib with h/o cva and residual dysphagia, HTN, HL, CAD wth h/o [place] (no mention of pci in cardiology notes), pad with hx of subclavian stent and possibly also fem-pop bypass, COPD, lung ca s/p resection, chemo and xrt, pud, hyperparathyroidism ( recent parathyroid scan suspicious for parathyroid adenoma), recent renal doppler suspicious for renal artery stenosis who p/w hematuria and weakness and noted to have uncontrolled HTN. uncontrolled HTN - Presented with sbp's > 200. asx. Now improved after receiving all of her outpatient medications and one dose of IV hydralazine. Patient had recently self -d/c 2 medications: believed one medication was for copd and one was valsartan. Had also been on clonidine in the past, but not on her most recent med list. Unclear if this is rebound htn vs. other etiology. Patient with possible parathyroid adenoma, secondary htn 2/2 parathyroid disease?. - ce's neg x 2. - utox + for opiates, tsh wnl. - repeat echo pending. - 11/25: BP improved today. hydralazine 50 tid added to regimen. would decrease coreg to bid dosing. con't to monitor. - 11/26-: bp remains improved sob/copd/acute diastolic hf exacerbation - bp control as above. - tx of possible copd component per pmd, pulm. - cxr with increased congestive changes. BNP elevated. s/p iv lasix 40 mg 11/24 -11/26. repeat echo pending. - Cr rising on daily iv lasix. so transitioned back to home chlorthalidone. afib/avr/mvr with h/o CVA? - coumadin dosing per inr. - patient with mechanical mvr, details of avr still unknown. (GOAL INR 2.5 -3.5 ) - rate ok on current meds cad with hx of mi, no mention of prior intervention on outpatient cardiology notes. - ce's neg x 2. ekg without acute ischemic changes. con't plavix. Was not on statin as outpatient?, started atorva here . pad s/p subclavian stent and possible fem-pop bypass - on plavix in addition to coumadin, hgb stable. con't statin. smoking cessation counseling.
--- NOTE | 2017-11-27 12:10 | PN ---
Progress Note, Physician Chief Complaint: Mrs Mcfarland says she is feeling better today, her breathing and wheezing slightly improved. No cp or n/v. Half full can of pringles found on her bed, removed from her room and she is encouraged to remain on the provided diet. - Current Medication List Current Medications: Active Medications Acetaminophen (Tylenol -) 650 mg PO Q8H PRN PRN Reason: PAIN LEVEL 6-10 Albuterol Sulfate (Ventolin Hfa Inhaler -) 2 puff IH QID [facility] Last Admin: 11/27/17 09:30 Dose: Not Given Albuterol/Ipratropium (Duoneb -) 1 amp NEB RQID [facility] Last Admin: 11/27/17 11:40 Dose: 1 amp Amlodipine Besylate (Norvasc -) 5 mg PO DAILY [facility] Last Admin: 11/27/17 09:28 Dose: 5 mg Atorvastatin Calcium (Lipitor -) 10 mg PO HS [facility] Last Admin: 11/26/17 21:54 Dose: 10 mg Carvedilol (Coreg -) 25 mg PO BID [facility] Last Admin: 11/27/17 09:28 Dose: 25 mg Chlorthalidone (Hygroton -) 25 mg PO DAILY [facility] Last Admin: 11/27/17 09:28 Dose: 25 mg Clopidogrel Bisulfate (Plavix -) 75 mg PO DAILY [facility] Last Admin: 11/27/17 09:28 Dose: 75 mg Digoxin (Lanoxin -) 0.125 mg PO DAILY [facility] Last Admin: 11/27/17 09:28 Dose: 0.125 mg Diltiazem HCl (Cardizem Cd -) 180 mg PO BID [facility] Last Admin: 11/27/17 09:28 Dose: 180 mg Fluticasone Propionate (Flonase -) 1 spray NS BID [facility] Last Admin: 11/27/17 09:34 Dose: Not Given Heparin Sodium (Porcine) (Heparin -) 1,000 unit IVPUSH PRN PRN PRN Reason: Heparin Heparin Sodium (Porcine) (Heparin -) 5,000 unit IVPUSH PRN PRN PRN Reason: Heparin Hydralazine HCl (Apresoline -) 50 mg PO TID [facility] Last Admin: 11/27/17 05:52 Dose: 50 mg Ceftriaxone Sodium 1 gm/ (Dextrose) 50 mls @ 100 mls/hr IVPB DAILY [facility] Last Admin: 11/27/17 09:33 Dose: 100 mls/hr Heparin Sodium (Porcine) 25, (000 unit/ Sodium Chloride) 500 mls @ 16 mls/hr IV TITR [facility]; Protocol Last Admin: 11/26/17 07:00 Dose: 800 unit/hr, 16 mls/hr Methylprednisolone Sodium Succinate (Solu-Medrol -) 40 mg IVPUSH Q8H-IV [facility] Last Admin: 11/27/17 09:29 Dose: 40 mg Potassium Phos/Sodium Phos (Phos-Nak Packet -) 1 packet PO TID [facility] Stop: 11/28/17 06:01 Ranitidine HCl (Zantac -) 150 mg PO BID [facility] Last Admin: 11/27/17 09:28 Dose: 150 mg Valsartan (Diovan -) 160 mg PO HS [facility] Last Admin: 11/26/17 21:54 Dose: 160 mg Warfarin Sodium (Coumadin -) 5 mg PO DAILY@1800 [facility] Last Admin: 11/26/17 17:30 Dose: 5 mg - Objective Vital Signs: Vital Signs Temperature 36.5 C 11/27/17 05:32 Pulse Rate 90 11/27/17 09:28 Respiratory Rate 18 11/27/17 05:32 Blood Pressure 135/99 11/27/17 05:32 O2 Sat by Pulse Oximetry (%) 100 11/26/17 21:00 Constitutional: Yes: Well Nourished, No Distress, Calm Cardiovascular: Yes: Regular Rate and Rhythm. No: Gallop, Murmur, Rub Respiratory: Yes: Regular, On Nasal O2, Wheezes. No: CTA Bilaterally, Rales, Rhonchi Gastrointestinal: Yes: Normal Bowel Sounds, Soft. No: Distention, Tenderness Extremities: Yes: WNL Edema: No Labs: CBC, BMP 11/27/17 06:30 11/27/17 06:30 INR, PTT INR 1.44 (0.82-1.09) H 11/27/17 06:30 Problem List - Problems (1) CHF exacerbation Code(s): I50.9 - HEART FAILURE, UNSPECIFIED Qualifiers: Heart failure type: systolic Qualified Code(s): I50.23 - Acute on chronic systolic (congestive) heart failure (2) COPD exacerbation Code(s): J44.1 - CHRONIC OBSTRUCTIVE PULMONARY DISEASE W (ACUTE) EXACERBATION (3) UTI (urinary tract infection) Code(s): N39.0 - URINARY TRACT INFECTION, SITE NOT SPECIFIED Qualifiers: Urinary tract infection type: site unspecified Hematuria presence: with hematuria Qualified Code(s): N39.0 - Urinary tract infection, site not specified; R31.9 - Hematuria, unspecified (4) A-fib Code(s): I48.91 - UNSPECIFIED ATRIAL FIBRILLATION Qualifiers: Atrial fibrillation type: chronic Qualified Code(s): I48.2 - Chronic atrial fibrillation (5) HTN (hypertension) Code(s): I10 - ESSENTIAL (PRIMARY) HYPERTENSION (6) ASHD (arteriosclerotic heart disease) Code(s): I25.10 - ATHSCL HEART DISEASE OF [place] CORONARY ARTERY W/O ANG PCTRS (7) Warfarin-induced coagulopathy Code(s): D68.32 - HEMORRHAGIC DISORD D/T EXTRINSIC CIRCULATING ANTICOAGULANTS; T45.515A - ADVERSE EFFECT OF ANTICOAGULANTS, INITIAL ENCOUNTER (8) S/P AVR (aortic valve replacement) Code(s): Z95.2 - PRESENCE OF PROSTHETIC HEART VALVE Assessment/Plan (1) CHF exacerbation Assessment/Plan: -appreciate cardiology assistance -euvolemic -IV lasix changed to oral chlorthalidone -instructed patient to not eat chips or other high salt foods as will exacerbate her CHF Code(s): I50.9 - HEART FAILURE, UNSPECIFIED Qualifiers: Heart failure type: systolic Qualified Code(s): I50.23 - Acute on chronic systolic (congestive) heart failure (2) COPD exacerbation Assessment/Plan: -also with COPD exacerbation, wheezing heard on exam but improving -pulmonary following -continue solumedrol and duonebs Code(s): J44.1 - CHRONIC OBSTRUCTIVE PULMONARY DISEASE W (ACUTE) EXACERBATION (3) UTI (urinary tract infection) Assessment/Plan: -growing klebsiella, sensitive to cephalosporins -continue rocephin currently -hematuria resolved with correction of INR and UTI treatment -day 4/7 of cephalosporins Code(s): N39.0 - URINARY TRACT INFECTION, SITE NOT SPECIFIED Qualifiers: Urinary tract infection type: site unspecified Hematuria presence: with hematuria Qualified Code(s): N39.0 - Urinary tract infection, site not specified; R31.9 - Hematuria, unspecified (4) A-fib Assessment/Plan: -rate controlled -coumadin restarted Code(s): I48.91 - UNSPECIFIED ATRIAL FIBRILLATION Qualifiers: Atrial fibrillation type: chronic Qualified Code(s): I48.2 - Chronic atrial fibrillation (5) HTN (hypertension) Assessment/Plan: -controlled -continue current management Code(s): I10 - ESSENTIAL (PRIMARY) HYPERTENSION (6) Warfarin induced coagulopathy Assessment/Plan: -reversed with Vitamin K -now subtherapeutic -started on heparin gtt since with mechanical valve -stop heparin when INR 2.5-3.5 (7) ASHD (arteriosclerotic heart disease) Assessment/Plan: -quiescent -continue current management Code(s): I25.10 - ATHSCL HEART DISEASE OF [place] CORONARY ARTERY W/O ANG PCTRS
--- NOTE | 2017-11-27 12:19 | PN ---
Progress Note, Physician History of Present Illness: pulmonary alert,feeling better,less dyspneic - Current Medication List Current Medications: Active Medications Acetaminophen (Tylenol -) 650 mg PO Q8H PRN PRN Reason: PAIN LEVEL 6-10 Albuterol/Ipratropium (Duoneb -) 1 amp NEB RQID [facility] Last Admin: 11/27/17 11:40 Dose: 1 amp Amlodipine Besylate (Norvasc -) 5 mg PO DAILY [facility] Last Admin: 11/27/17 09:28 Dose: 5 mg Atorvastatin Calcium (Lipitor -) 10 mg PO HS [facility] Last Admin: 11/26/17 21:54 Dose: 10 mg Carvedilol (Coreg -) 25 mg PO BID [facility] Last Admin: 11/27/17 09:28 Dose: 25 mg Chlorthalidone (Hygroton -) 25 mg PO DAILY [facility] Last Admin: 11/27/17 09:28 Dose: 25 mg Clopidogrel Bisulfate (Plavix -) 75 mg PO DAILY [facility] Last Admin: 11/27/17 09:28 Dose: 75 mg Digoxin (Lanoxin -) 0.125 mg PO DAILY [facility] Last Admin: 11/27/17 09:28 Dose: 0.125 mg Diltiazem HCl (Cardizem Cd -) 180 mg PO BID [facility] Last Admin: 11/27/17 09:28 Dose: 180 mg Fluticasone Propionate (Flonase -) 1 spray NS BID [facility] Last Admin: 11/27/17 09:34 Dose: Not Given Heparin Sodium (Porcine) (Heparin -) 1,000 unit IVPUSH PRN PRN PRN Reason: Heparin Heparin Sodium (Porcine) (Heparin -) 5,000 unit IVPUSH PRN PRN PRN Reason: Heparin Hydralazine HCl (Apresoline -) 50 mg PO TID [facility] Last Admin: 11/27/17 05:52 Dose: 50 mg Ceftriaxone Sodium 1 gm/ (Dextrose) 50 mls @ 100 mls/hr IVPB DAILY [facility] Last Admin: 11/27/17 09:33 Dose: 100 mls/hr Heparin Sodium (Porcine) 25, (000 unit/ Sodium Chloride) 500 mls @ 16 mls/hr IV TITR [facility]; Protocol Last Admin: 11/26/17 07:00 Dose: 800 unit/hr, 16 mls/hr Methylprednisolone Sodium Succinate (Solu-Medrol -) 40 mg IVPUSH Q8H-IV [facility] Last Admin: 11/27/17 09:29 Dose: 40 mg Potassium Phos/Sodium Phos (Phos-Nak Packet -) 1 packet PO TID [facility] Stop: 11/28/17 06:01 Ranitidine HCl (Zantac -) 150 mg PO BID [facility] Last Admin: 11/27/17 09:28 Dose: 150 mg Valsartan (Diovan -) 160 mg PO HS [facility] Last Admin: 11/26/17 21:54 Dose: 160 mg Warfarin Sodium (Coumadin -) 5 mg PO DAILY@1800 [facility] Last Admin: 11/26/17 17:30 Dose: 5 mg - Objective Vital Signs: Vital Signs Temperature 97.7 F 11/27/17 05:32 Pulse Rate 90 11/27/17 09:28 Respiratory Rate 18 11/27/17 05:32 Blood Pressure 135/99 11/27/17 05:32 O2 Sat by Pulse Oximetry (%) 100 11/26/17 21:00 Constitutional: Yes: Well Nourished, Calm Eyes: Yes: WNL HENT: Yes: WNL Neck: Yes: WNL Cardiovascular: Yes: Pulse Irregular, S1, S2 Respiratory: Yes: Rhonchi (scattered ruth ann wheezes and rhonchi), Wheezes Gastrointestinal: Yes: Normal Bowel Sounds, Soft Extremities: Yes: WNL Edema: No Labs: CBC, BMP 11/27/17 06:30 11/27/17 06:30 INR, PTT INR 1.44 (0.82-1.09) H 11/27/17 06:30 Assessment/Plan Problem List - Problems (1) Hematuria Code(s): R31.9 - HEMATURIA, UNSPECIFIED (2) UTI (urinary tract infection) Code(s): N39.0 - URINARY TRACT INFECTION, SITE NOT SPECIFIED Qualifiers: Urinary tract infection type: site unspecified Hematuria presence: with hematuria Qualified Code(s): N39.0 - Urinary tract infection, site not specified; R31.9 - Hematuria, unspecified (3) Supratherapeutic INR Code(s): R79.1 - ABNORMAL COAGULATION PROFILE (4) S/P AVR (aortic valve replacement) Code(s): Z95.2 - PRESENCE OF PROSTHETIC HEART VALVE (5) S/P MVR (mitral valve replacement) Code(s): Z95.2 - PRESENCE OF PROSTHETIC HEART VALVE (6) A-fib Code(s): I48.91 - UNSPECIFIED ATRIAL FIBRILLATION Qualifiers: Atrial fibrillation type: chronic Qualified Code(s): I48.2 - Chronic atrial fibrillation (7) ASHD (arteriosclerotic heart disease) Code(s): I25.10 - ATHSCL HEART DISEASE OF [place] CORONARY ARTERY W/O ANG PCTRS (8) HTN (hypertension) Code(s): I10 - ESSENTIAL (PRIMARY) HYPERTENSION (9) COPD exacerbation Code(s): J44.1 - CHRONIC OBSTRUCTIVE PULMONARY DISEASE W (ACUTE) EXACERBATION (10) CHF (congestive heart failure) Code(s): I50.9 - HEART FAILURE, UNSPECIFIED Qualifiers: Heart failure type: unspecified Heart failure chronicity: acute on chronic Qualified Code(s): I50.9 - Heart failure, unspecified Assessment/Plan Hematuria UTI Supratherapeutic INR corrected Acute COPD Exacerbation CHF Exacerbation CAD Atrial Fibrillation s/p MVR/AVR - antibiotics - monitor H/H, INR - transfuse as needed - medrol same dose - inhaled bronchodilators - lasix - monitor urine output, creatinine - echocardiogram report pending - f/u chest x-ray chanda GUZMAN
[2017-11-27] MEDS: NAPH,MB-DB/K PH,MBDB POWDER PACKET PO SCH ×2 (13:27→23:09)
[2017-11-27] MEDS: WARFARIN NA 5 MG TABLET (UD) PO SCH (17:27)
[2017-11-27] MEDS: HEPARIN - 25,000 UNIT in SODIUM CHLORIDE 495 ML IV SCH (17:28)
[2017-11-27] MEDS: VALSARTAN 160 MG TABLET (UD) PO SCH (23:08)
[2017-11-27] MEDS: ATORVASTATIN CA 10 MG TABLET (FP) PO SCH (23:09)
[2017-11-28] MEDS: methylPREDNISolone NA SUCC 40 MG/1 ML VIAL IVPUSH SCH ×3 (01:05→22:30)
[2017-11-28] MEDS: hydrALAZINE HCL 50 MG TABLET (FP) PO SCH ×3 (05:29→22:30)
[2017-11-28] MEDS: NAPH,MB-DB/K PH,MBDB POWDER PACKET PO SCH (05:29)
[2017-11-28] MEDS: ALBUTEROL SO4 2.5/IPRATROPIUM 0.5 INH SOL 3 ML VIAL.NEB. NEB SCH ×4 (07:21→21:10)
[2017-11-28 07:27] LABS: BASO % 0.1 % (0-2.0); HEMATOCRIT 34.1 % (32.4-45.2); HEMOGLOBIN 11.2 GM/dL (10.7-15.3); LYMPH % 1.8 % (8-40); MCH 28.5 pg (25.7-33.7); MCHC 32.8 g/dl (32.0-36.0); MEAN PLT VOLUME 9.5 fl (7.5-11.1); MONO % 3.5 % (3.8-10.2); NEUT % 94.6 % (42.8-82.8); PLATELET COUNT 151 K/MM3 (134-434); RBC 3.92 M/mm3 (3.60-5.2); RDW 15.3 % (11.6-15.6); WHITE BLOOD COUNT 13.1 K/mm3 (4.0-10.0)
[2017-11-28 08:19] LABS: INR 2.11 (0.82-1.09); PROTHROMBIN TIME (PATIENT) 23.8 SEC (9.7-13.0)
[2017-11-28] MEDS ORDERED: PT OWN MED DRAWER 7, Y5N ONE ×3 (09:38→11:13)
[2017-11-28] MEDS ORDERED: cefTRIAXone SODIUM 1 GM VIAL ONE (09:38)
[2017-11-28] MEDS ORDERED: DEXTROSE 5%-WATER - 50 ML IVPB ONE (09:39)
[2017-11-28] MEDS: amLODIPine BESYLATE 5 MG TABLET (FP) PO SCH (09:44)
[2017-11-28] MEDS: RANITIDINE HCL 150 MG TABLET (FP) PO SCH ×2 (09:44→22:30)
[2017-11-28] MEDS: CEFTRIAXONE 1 GM in DEXTROSE 5%-WATER - 50 ML IVPB SCH (09:44)
[2017-11-28] MEDS: CLOPIDOGREL BISULFATE 75 MG TABLET (FP) PO SCH (09:44)
[2017-11-28] MEDS: DIGOXIN 0.125 MG TABLET (FP) PO SCH (09:44)
[2017-11-28] MEDS: CARVEDILOL 25 MG TABLET (FP) PO SCH ×2 (09:45→22:30)
[2017-11-28] MEDS: FLUTICASONE PROP 0.05% 16 GM NASAL SPRAY NS SCH ×2 (09:47→22:31)
--- NOTE | 2017-11-28 10:16 | PN ---
Progress Note (short form) - Note Progress Note: CC: HTN S: no cp, palps, sob, dizziness Current Medications Generic Name Dose Route Start Last Admin Trade Name Freq PRN Reason Stop Dose Admin Acetaminophen 650 mg 11/26/17 06:56 Tylenol - PO Q8H PRN PAIN LEVEL 6-10 Albuterol/Ipratropium 1 amp 11/24/17 12:00 11/28/17 07:21 Duoneb - NEB 1 amp RQID JOHN Administration Amlodipine Besylate 5 mg 11/24/17 15:30 11/28/17 09:44 Norvasc - PO 5 mg DAILY JOHN Administration Atorvastatin Calcium 10 mg 11/25/17 22:00 11/27/17 23:09 Lipitor - PO 10 mg HS JOHN Administration Carvedilol 25 mg 11/25/17 22:00 11/28/17 09:45 Coreg - PO 25 mg BID JOHN Administration Chlorthalidone 25 mg 11/27/17 10:00 11/27/17 09:28 [place] - PO 25 mg DAILY JOHN Administration Clopidogrel Bisulfate 75 mg 11/24/17 10:00 11/28/17 09:44 Plavix - PO 75 mg DAILY JOHN Administration Digoxin 0.125 mg 11/24/17 10:00 11/28/17 09:44 Lanoxin - PO 0.125 mg DAILY JOHN Administration Diltiazem HCl 180 mg 11/27/17 10:00 11/28/17 09:45 Cardizem Cd - PO 180 mg BID [facility] Administration Fluticasone Propionate 1 spray 11/25/17 11:45 11/28/17 09:47 Flonase - NS Not Given BID [facility] Heparin Sodium (Porcine) 1,000 unit 11/26/17 16:46 Heparin - IVPUSH PRN PRN Heparin Heparin Sodium (Porcine) 5,000 unit 11/26/17 16:46 Heparin - IVPUSH PRN PRN Heparin Hydralazine HCl 50 mg 11/24/17 22:00 11/28/17 05:29 Apresoline - PO 50 mg TID JOHN Administration Ceftriaxone Sodium 1 gm/ 50 mls @ 100 mls/hr 11/24/17 10:00 11/28/17 09:44 Dextrose IVPB 100 mls/hr DAILY [facility] Administration Heparin Sodium (Porcine) 25, 500 mls @ 16 mls/hr 11/26/17 17:00 05/30/18 17: 28 000 unit/ Sodium Chloride IV 800 unit/hr TITR JOHN 16 mls/hr Administration Protocol 800 UNIT/HR Methylprednisolone Sodium Succinate 40 mg 11/24/17 15:30 11/28/17 09:46 Solu-Medrol - IVPUSH 40 mg Q8H-IV JOHN Administration Ranitidine HCl 150 mg 11/24/17 22:00 11/28/17 09:44 Zantac - PO 150 mg BID JOHN Administration Valsartan 160 mg 11/24/17 22:00 11/27/17 23:08 Diovan - PO 160 mg HS JOHN Administration Warfarin Sodium 5 mg 11/26/17 18:00 11/27/17 17:27 Coumadin - PO 5 mg DAILY@1800 JOHN Administration Vital Signs Period Temp Pulse Resp BP Sys/Barcenas Pulse Ox Last 24 Hr 97.6 F-98.3 F 84-92 16-18 128-163/78-94 98 NAD, calm JVD flat, neck supple diminished air mov't. + wheezes, nl effort irregularly, irregular nl s1, s2. mechanical s1, s2. + bs soft nt nd ext without e/c/c no jaundice, diaphoresis aaox3 CBC, BMP 11/28/17 07:10 ekg: afib with pvc, VR 100 bpm. LVH. non-sp t wave ab. no acute ischenmic changes. tele: afib, rate ok echo 10/2017: nl lv/rv, mild jean carlos, mech mvr ok, bio avr ok, mod tr, rvsp 40-50 cxr: new congestive changes with bibasilar infiltrates and pleural effusions R> L. possible bibasilar atelectasis. prominent hilar markings. left apical pleural thickening. NAT scarring. vascular stent at left clavicle. 07/2017 parathyroid scan: focus of abnormal tracer suspicious for parathyroid adenoma. assessment/plan 67 yo smoker with h/o mechanical mvr and avr (presumed mechanical, but no mention of avr in cardiology notes) 2/2 rheumatic heart disease, HFpEF, Afib with h/o cva and residual dysphagia, HTN, HL, CAD wth h/o ME (no mention of pci in cardiology notes), pad with hx of subclavian stent and possibly also fem-pop bypass, COPD, lung ca s/p resection, chemo and xrt, pud, hyperparathyroidism ( recent parathyroid scan suspicious for parathyroid adenoma), recent renal doppler suspicious for renal artery stenosis who p/w hematuria and weakness and noted to have uncontrolled HTN. uncontrolled HTN - Presented with sbp's > 200. asx. Now improved after receiving all of her outpatient medications and one dose of IV hydralazine. Patient had recently self -d/c 2 medications: believed one medication was for copd and one was valsartan. Had also been on clonidine in the past, but not on her most recent med list. Unclear if this is rebound htn vs. other etiology. Patient with possible parathyroid adenoma, secondary htn 2/2 parathyroid disease?. - ce's neg x 2. - utox + for opiates, tsh wnl. - repeat echo pending. - 11/25: BP improved today. hydralazine 50 tid added to regimen. would decrease coreg to bid dosing. con't to monitor. - 11/26-: bp remains improved sob/copd/acute diastolic hf exacerbation - bp control as above. - tx of possible copd component per pmd, pulm. - cxr with increased congestive changes. BNP elevated. s/p iv lasix 40 mg 11/24 -11/26. repeat echo pending. - Cr rising on daily iv lasix. so transitioned back to home chlorthalidone. afib/avr/mvr with h/o CVA? - coumadin dosing per inr. - patient with mechanical mvr, details of avr still unknown. (GOAL INR 2.5 -3.5 ) - rate ok on current meds cad with hx of mi, no mention of prior intervention on outpatient cardiology notes. - ce's neg x 2. ekg without acute ischemic changes. con't plavix. Was not on statin as outpatient?, started atorva here . pad s/p subclavian stent and possible fem-pop bypass - on plavix in addition to coumadin, hgb stable. con't statin. smoking cessation counseling. ri tele
[2017-11-28] MEDS: CHLORTHALIDONE 25 MG TABLET PO SCH (11:10)
--- NOTE | 2017-11-28 11:22 | PN ---
Progress Note, Physician Chief Complaint: Mrs Mcfarland says she still has a cough but it is not productive. Still with shortness of breath but slowly improving. No cp or n/v. - Current Medication List Current Medications: Active Medications Acetaminophen (Tylenol -) 650 mg PO Q8H PRN PRN Reason: PAIN LEVEL 6-10 Albuterol/Ipratropium (Duoneb -) 1 amp NEB RQID [facility] Last Admin: 11/28/17 07:21 Dose: 1 amp Amlodipine Besylate (Norvasc -) 5 mg PO DAILY [facility] Last Admin: 11/28/17 09:44 Dose: 5 mg Atorvastatin Calcium (Lipitor -) 10 mg PO HS [facility] Last Admin: 11/27/17 23:09 Dose: 10 mg Carvedilol (Coreg -) 25 mg PO BID [facility] Last Admin: 11/28/17 09:45 Dose: 25 mg Cephalexin HCl (Keflex -) 500 mg PO BID [facility] Stop: 11/30/17 22:01 Chlorthalidone (Hygroton -) 25 mg PO DAILY [facility] Last Admin: 11/28/17 11:10 Dose: 25 mg Clopidogrel Bisulfate (Plavix -) 75 mg PO DAILY [facility] Last Admin: 11/28/17 09:44 Dose: 75 mg Digoxin (Lanoxin -) 0.125 mg PO DAILY [facility] Last Admin: 11/28/17 09:44 Dose: 0.125 mg Diltiazem HCl (Cardizem Cd -) 180 mg PO BID [facility] Last Admin: 11/28/17 09:45 Dose: 180 mg Fluticasone Propionate (Flonase -) 1 spray NS BID [facility] Last Admin: 11/28/17 09:47 Dose: Not Given Heparin Sodium (Porcine) (Heparin -) 1,000 unit IVPUSH PRN PRN PRN Reason: Heparin Heparin Sodium (Porcine) (Heparin -) 5,000 unit IVPUSH PRN PRN PRN Reason: Heparin Hydralazine HCl (Apresoline -) 50 mg PO TID [facility] Last Admin: 11/28/17 05:29 Dose: 50 mg Heparin Sodium (Porcine) 25, (000 unit/ Sodium Chloride) 500 mls @ 16 mls/hr IV TITR [facility]; Protocol Last Admin: 11/27/17 17:28 Dose: 800 unit/hr, 16 mls/hr Methylprednisolone Sodium Succinate (Solu-Medrol -) 40 mg IVPUSH Q8H-IV [facility] Last Admin: 11/28/17 09:46 Dose: 40 mg Ranitidine HCl (Zantac -) 150 mg PO BID [facility] Last Admin: 11/28/17 09:44 Dose: 150 mg Valsartan (Diovan -) 160 mg PO HS [facility] Last Admin: 11/27/17 23:08 Dose: 160 mg Warfarin Sodium (Coumadin -) 5 mg PO DAILY@1800 [facility] Last Admin: 11/27/17 17:27 Dose: 5 mg - Objective Vital Signs: Vital Signs Temperature 36.6 C 11/28/17 06:00 Pulse Rate 90 11/28/17 09:44 Respiratory Rate 18 11/28/17 06:00 Blood Pressure 142/80 11/28/17 06:00 O2 Sat by Pulse Oximetry (%) 98 11/27/17 21:00 Constitutional: Yes: Well Nourished, No Distress, Calm Cardiovascular: Yes: Pulse Irregular. No: Tachycardia, Gallop, Murmur, Rub Respiratory: Yes: Regular, On Nasal O2, Wheezes (bilateral). No: CTA Bilaterally, Rales, Rhonchi Gastrointestinal: Yes: Normal Bowel Sounds, Soft. No: Distention, Tenderness Extremities: Yes: WNL Edema: No Labs: CBC, BMP 11/28/17 07:10 INR, PTT INR 2.11 (0.82-1.09) H D 11/28/17 07:10 Problem List - Problems (1) CHF exacerbation Code(s): I50.9 - HEART FAILURE, UNSPECIFIED Qualifiers: Heart failure type: systolic Qualified Code(s): I50.23 - Acute on chronic systolic (congestive) heart failure (2) COPD exacerbation Code(s): J44.1 - CHRONIC OBSTRUCTIVE PULMONARY DISEASE W (ACUTE) EXACERBATION (3) UTI (urinary tract infection) Code(s): N39.0 - URINARY TRACT INFECTION, SITE NOT SPECIFIED Qualifiers: Urinary tract infection type: site unspecified Hematuria presence: with hematuria Qualified Code(s): N39.0 - Urinary tract infection, site not specified; R31.9 - Hematuria, unspecified (4) A-fib Code(s): I48.91 - UNSPECIFIED ATRIAL FIBRILLATION Qualifiers: Atrial fibrillation type: chronic Qualified Code(s): I48.2 - Chronic atrial fibrillation (5) HTN (hypertension) Code(s): I10 - ESSENTIAL (PRIMARY) HYPERTENSION (6) ASHD (arteriosclerotic heart disease) Code(s): I25.10 - ATHSCL HEART DISEASE OF [place] CORONARY ARTERY W/O ANG PCTRS (7) Warfarin-induced coagulopathy Code(s): D68.32 - HEMORRHAGIC DISORD D/T EXTRINSIC CIRCULATING ANTICOAGULANTS; T45.515A - ADVERSE EFFECT OF ANTICOAGULANTS, INITIAL ENCOUNTER (8) S/P AVR (aortic valve replacement) Code(s): Z95.2 - PRESENCE OF PROSTHETIC HEART VALVE Assessment/Plan (1) CHF exacerbation Assessment/Plan: -appreciate cardiology assistance -euvolemic -continue chlorthalidone Code(s): I50.9 - HEART FAILURE, UNSPECIFIED Qualifiers: Heart failure type: systolic Qualified Code(s): I50.23 - Acute on chronic systolic (congestive) heart failure (2) COPD exacerbation Assessment/Plan: -wheezing present but slowly improving -pulmonary following and titrating solumedrol -solumedrol decreased to bid -continue bronchodilators Code(s): J44.1 - CHRONIC OBSTRUCTIVE PULMONARY DISEASE W (ACUTE) EXACERBATION (3) UTI (urinary tract infection) Assessment/Plan: -growing klebsiella, sensitive to cephalosporins -rocephin day 5/7 -change to keflex to finish course Code(s): N39.0 - URINARY TRACT INFECTION, SITE NOT SPECIFIED Qualifiers: Urinary tract infection type: site unspecified Hematuria presence: with hematuria Qualified Code(s): N39.0 - Urinary tract infection, site not specified; R31.9 - Hematuria, unspecified (4) A-fib Assessment/Plan: -rate controlled -coumadin restarted Code(s): I48.91 - UNSPECIFIED ATRIAL FIBRILLATION Qualifiers: Atrial fibrillation type: chronic Qualified Code(s): I48.2 - Chronic atrial fibrillation (5) HTN (hypertension) Assessment/Plan: -controlled -continue current management Code(s): I10 - ESSENTIAL (PRIMARY) HYPERTENSION (6) Warfarin induced coagulopathy Assessment/Plan: -reversed with Vitamin K -now subtherapeutic but increasing -started on heparin gtt since with mechanical valve -stop heparin when INR 2.5-3.5 (7) ASHD (arteriosclerotic heart disease) Assessment/Plan: -quiescent -continue current management Code(s): I25.10 - ATHSCL HEART DISEASE OF [place] CORONARY ARTERY W/O ANG PCTRS
--- NOTE | 2017-11-28 11:58 | PN ---
Progress Note (short form) - Note Progress Note: Breathing overall is improving but no significant change in [place]. No CP. CXR: Resolving CHF pattern / residual LLL atelectasis/effusion Intake & Output 11/25/17 11/26/17 11/27/17 11/28/17 23:59 23:59 23:59 23:59 Intake Total 610 1050 1342 762 Output Total 200 Balance 610 1050 1142 762 Weight 137 lb Last Vital Signs Temp Pulse Resp BP Pulse Ox 97.9 F 90 18 142/80 98 11/28/17 06:00 11/28/17 09:44 11/28/17 06:00 11/28/17 06:00 11/27/17 21:00 Active Medications Acetaminophen (Tylenol -) 650 mg PO Q8H PRN PRN Reason: PAIN LEVEL 6-10 Albuterol/Ipratropium (Duoneb -) 1 amp NEB RQID [facility] Last Admin: 11/28/17 11:29 Dose: 1 amp Amlodipine Besylate (Norvasc -) 5 mg PO DAILY [facility] Last Admin: 11/28/17 09:44 Dose: 5 mg Atorvastatin Calcium (Lipitor -) 10 mg PO HS [facility] Last Admin: 11/27/17 23:09 Dose: 10 mg Carvedilol (Coreg -) 25 mg PO BID [facility] Last Admin: 11/28/17 09:45 Dose: 25 mg Cephalexin HCl (Keflex -) 500 mg PO BID [facility] Stop: 11/30/17 22:01 Chlorthalidone (Hygroton -) 25 mg PO DAILY [facility] Last Admin: 11/28/17 11:10 Dose: 25 mg Clopidogrel Bisulfate (Plavix -) 75 mg PO DAILY [facility] Last Admin: 11/28/17 09:44 Dose: 75 mg Digoxin (Lanoxin -) 0.125 mg PO DAILY [facility] Last Admin: 11/28/17 09:44 Dose: 0.125 mg Diltiazem HCl (Cardizem Cd -) 180 mg PO BID [facility] Last Admin: 11/28/17 09:45 Dose: 180 mg Fluticasone Propionate (Flonase -) 1 spray NS BID [facility] Last Admin: 11/28/17 09:47 Dose: Not Given Heparin Sodium (Porcine) (Heparin -) 1,000 unit IVPUSH PRN PRN PRN Reason: Heparin Heparin Sodium (Porcine) (Heparin -) 5,000 unit IVPUSH PRN PRN PRN Reason: Heparin Hydralazine HCl (Apresoline -) 50 mg PO TID [facility] Last Admin: 11/28/17 05:29 Dose: 50 mg Heparin Sodium (Porcine) 25, (000 unit/ Sodium Chloride) 500 mls @ 16 mls/hr IV TITR JOHN; Protocol Last Admin: 11/27/17 17:28 Dose: 800 unit/hr, 16 mls/hr Methylprednisolone Sodium Succinate (Solu-Medrol -) 40 mg IVPUSH Q8H-IV [facility] Last Admin: 11/28/17 09:46 Dose: 40 mg Ranitidine HCl (Zantac -) 150 mg PO BID [facility] Last Admin: 11/28/17 09:44 Dose: 150 mg Valsartan (Diovan -) 160 mg PO HS [facility] Last Admin: 11/27/17 23:08 Dose: 160 mg Warfarin Sodium (Coumadin -) 5 mg PO DAILY@1800 [facility] Last Admin: 11/27/17 17:27 Dose: 5 mg Constitutional: Yes: NAD Eyes: Yes: WNL HENT: Yes: WNL Neck: Yes: WNL Cardiovascular: Yes: Pulse Irregular, S1, S2 Respiratory: Yes: Bibasilar Rhonchi, no wheezes appreciated Gastrointestinal: Yes: Normal Bowel Sounds, Soft Extremities: Yes: WNL Edema: No Labs: Laboratory Results - last 24 hr 11/28/17 11/28/17 11/28/17 07:10 07:10 07:10 WBC 13.1 H RBC 3.92 Hgb 11.2 Hct 34.1 MCV 87.0 MCH 28.5 MCHC 32.8 RDW 15.3 Plt Count 151 MPV 9.5 Neutrophils % 94.6 H Lymphocytes % 1.8 L Monocytes % 3.5 L Eosinophils % 0.0 Basophils % 0.1 Nucleated RBC % 0 PT with INR 23.80 H INR 2.11 H D PTT (Actin FS) 72.4 H Assessment/Plan Problem List - Problems (1) Hematuria Code(s): R31.9 - HEMATURIA, UNSPECIFIED (2) UTI (urinary tract infection) Code(s): N39.0 - URINARY TRACT INFECTION, SITE NOT SPECIFIED Qualifiers: Urinary tract infection type: site unspecified Hematuria presence: with hematuria Qualified Code(s): N39.0 - Urinary tract infection, site not specified; R31.9 - Hematuria, unspecified (3) Supratherapeutic INR Code(s): R79.1 - ABNORMAL COAGULATION PROFILE (4) S/P AVR (aortic valve replacement) Code(s): Z95.2 - PRESENCE OF PROSTHETIC HEART VALVE (5) S/P MVR (mitral valve replacement) Code(s): Z95.2 - PRESENCE OF PROSTHETIC HEART VALVE (6) A-fib Code(s): I48.91 - UNSPECIFIED ATRIAL FIBRILLATION Qualifiers: Atrial fibrillation type: chronic Qualified Code(s): I48.2 - Chronic atrial fibrillation (7) ASHD (arteriosclerotic heart disease) Code(s): I25.10 - ATHSCL HEART DISEASE OF [place] CORONARY ARTERY W/O ANG PCTRS (8) HTN (hypertension) Code(s): I10 - ESSENTIAL (PRIMARY) HYPERTENSION (9) COPD exacerbation Code(s): J44.1 - CHRONIC OBSTRUCTIVE PULMONARY DISEASE W (ACUTE) EXACERBATION (10) CHF (congestive heart failure) Code(s): I50.9 - HEART FAILURE, UNSPECIFIED Qualifiers: Heart failure type: unspecified Heart failure chronicity: acute on chronic Qualified Code(s): I50.9 - Heart failure, unspecified Assessment/Plan Hematuria UTI Supratherapeutic INR corrected Acute COPD Exacerbation CHF Exacerbation CAD Atrial Fibrillation s/p MVR/AVR - Wean Medrol today - PO ABX - Normal transfusion thresholds - inhaled bronchodilators - lasix - monitor urine output, creatinine Dr Fuentes
[2017-11-28 13:02] LABS: BLOOD UREA NITROGEN 29 mg/dL (7-18)
[2017-11-28 13:11] LABS: CHLORIDE 109 mmol/L (98-107); POTASSIUM 3.5 mmol/L (3.5-5.1); SODIUM 144 mmol/L (136-145)
[2017-11-28 13:16] LABS: ANION GAP 10 (8-16); CALCIUM 10.3 mg/dL (8.5-10.1); CO2 25 mmol/L (21-32); CREATININE 1.2 mg/dL (0.55-1.02); GLUCOSE,RANDOM 135 mg/dL (74-106); MAGNESIUM 2.2 mg/dL (1.8-2.4); PHOSPHOROUS 2.8 mg/dL (2.5-4.9)
[2017-11-28] MEDS: HEPARIN - 25,000 UNIT in SODIUM CHLORIDE 495 ML IV SCH (18:07)
[2017-11-28] MEDS: WARFARIN NA 5 MG TABLET (UD) PO SCH (18:19)
[2017-11-28] MEDS: ATORVASTATIN CA 10 MG TABLET (FP) PO SCH (22:30)
[2017-11-28] MEDS: VALSARTAN 160 MG TABLET (UD) PO SCH (22:30)
[2017-11-29] MEDS: hydrALAZINE HCL 50 MG TABLET (FP) PO SCH ×3 (06:04→21:49)
[2017-11-29] MEDS: ALBUTEROL SO4 2.5/IPRATROPIUM 0.5 INH SOL 3 ML VIAL.NEB. NEB SCH ×4 (08:25→21:07)
[2017-11-29 08:37] LABS: BASO % 0.1 % (0-2.0); HEMATOCRIT 35.5 % (32.4-45.2); HEMOGLOBIN 11.6 GM/dL (10.7-15.3); LYMPH % 1.7 % (8-40); MCH 28.2 pg (25.7-33.7); MCHC 32.6 g/dl (32.0-36.0); MEAN CELL VOLUME 86.5 fl (80-96); MEAN PLT VOLUME 9.8 fl (7.5-11.1); MONO % 3.1 % (3.8-10.2); NEUT % 95.1 % (42.8-82.8); PLATELET COUNT 149 K/MM3 (134-434); RBC 4.11 M/mm3 (3.60-5.2); RDW 15.2 % (11.6-15.6)
[2017-11-29 09:12] LABS: INR 3.28 (0.82-1.09); PROTHROMBIN TIME (PATIENT) 37.1 SEC (9.7-13.0)
[2017-11-29 09:33] LABS: ANION GAP 7 (8-16); BLOOD UREA NITROGEN 24 mg/dL (7-18); CALCIUM 9.9 mg/dL (8.5-10.1); CHLORIDE 110 mmol/L (98-107); CO2 28 mmol/L (21-32); GLUCOSE,RANDOM 122 mg/dL (74-106); MAGNESIUM 2.1 mg/dL (1.8-2.4); PHOSPHOROUS 2.8 mg/dL (2.5-4.9); POTASSIUM 3.2 mmol/L (3.5-5.1); SODIUM 145 mmol/L (136-145)
[2017-11-29 09:34] LABS: CREATININE 1.2 mg/dL (0.55-1.02)
[2017-11-29] MEDS ORDERED: CEPHALEXIN MONOHYDRATE 500 MG CAPSULE (UD) PO SCH (10:00)
[2017-11-29] MEDS: CLOPIDOGREL BISULFATE 75 MG TABLET (FP) PO SCH (10:04)
[2017-11-29] MEDS: methylPREDNISolone NA SUCC 40 MG/1 ML VIAL IVPUSH SCH ×2 (10:04→21:49)
[2017-11-29] MEDS: amLODIPine BESYLATE 5 MG TABLET (FP) PO SCH (10:04)
[2017-11-29] MEDS: RANITIDINE HCL 150 MG TABLET (FP) PO SCH ×2 (10:04→21:49)
[2017-11-29] MEDS: CARVEDILOL 25 MG TABLET (FP) PO SCH ×2 (10:05→21:49)
[2017-11-29] MEDS: DIGOXIN 0.125 MG TABLET (FP) PO SCH (10:05)
[2017-11-29] MEDS: CHLORTHALIDONE 25 MG TABLET PO SCH (10:07)
[2017-11-29] MEDS: FLUTICASONE PROP 0.05% 16 GM NASAL SPRAY NS SCH ×3 (10:11→22:22)
[2017-11-29] MEDS ORDERED: WARFARIN NA 3 MG TABLET PO SCH (10:23)
--- NOTE | 2017-11-29 10:55 | PN ---
Progress Note, Physician Chief Complaint: Mrs Bruna says she is doing better. Still with coughing but improved. No cp, sob, n/v. - Current Medication List Current Medications: Active Medications Acetaminophen (Tylenol -) 650 mg PO Q8H PRN PRN Reason: PAIN LEVEL 6-10 Albuterol/Ipratropium (Duoneb -) 1 amp NEB RQID [facility] Last Admin: 11/29/17 08:25 Dose: 1 amp Amlodipine Besylate (Norvasc -) 5 mg PO DAILY [facility] Last Admin: 11/29/17 10:04 Dose: 5 mg Atorvastatin Calcium (Lipitor -) 10 mg PO HS [facility] Last Admin: 11/28/17 22:30 Dose: 10 mg Carvedilol (Coreg -) 25 mg PO BID [facility] Last Admin: 11/29/17 10:05 Dose: 25 mg Cephalexin HCl (Keflex -) 500 mg PO BID [facility] Stop: 11/30/17 22:01 Last Admin: 11/29/17 10:26 Dose: Not Given Chlorthalidone (Hygroton -) 25 mg PO DAILY [facility] Last Admin: 11/29/17 10:07 Dose: 25 mg Clopidogrel Bisulfate (Plavix -) 75 mg PO DAILY [facility] Last Admin: 11/29/17 10:04 Dose: 75 mg Digoxin (Lanoxin -) 0.125 mg PO DAILY [facility] Last Admin: 11/29/17 10:05 Dose: 0.125 mg Diltiazem HCl (Cardizem Cd -) 180 mg PO BID [facility] Last Admin: 11/29/17 10:05 Dose: 180 mg Fluticasone Propionate (Flonase -) 1 spray NS BID [facility] Last Admin: 11/29/17 10:11 Dose: 1 spray Hydralazine HCl (Apresoline -) 50 mg PO TID [facility] Last Admin: 11/29/17 06:04 Dose: 50 mg Methylprednisolone Sodium Succinate (Solu-Medrol -) 40 mg IVPUSH BID [facility] Last Admin: 11/29/17 10:04 Dose: 40 mg Potassium Chloride (Potassium Chloride Oral Liquid) 40 meq PO ONCE ONE Stop: 11/29/17 10:23 Ranitidine HCl (Zantac -) 150 mg PO BID [facility] Last Admin: 11/29/17 10:04 Dose: 150 mg Valsartan (Diovan -) 160 mg PO HS [facility] Last Admin: 11/28/17 22:30 Dose: 160 mg Warfarin Sodium (Coumadin -) 3 mg PO DAILY@1800 [facility] - Objective Vital Signs: Vital Signs Temperature 36.4 C L 11/29/17 05:00 Pulse Rate 85 11/29/17 10:05 Respiratory Rate 18 11/29/17 05:00 Blood Pressure 137/69 11/29/17 05:00 O2 Sat by Pulse Oximetry (%) 100 11/28/17 21:00 Constitutional: Yes: Well Nourished, No Distress, Calm Cardiovascular: Yes: Pulse Irregular. No: Tachycardia, Gallop, Murmur, Rub Respiratory: Yes: Regular, CTA Bilaterally, On Nasal O2. No: Rales, Rhonchi, Wheezes Gastrointestinal: Yes: Normal Bowel Sounds, Soft. No: Distention, Tenderness Extremities: Yes: WNL Edema: No Labs: CBC, BMP 11/29/17 08:14 11/29/17 08:14 INR, PTT INR 3.28 (0.82-1.09) H D 11/29/17 06:00 Problem List - Problems (1) CHF exacerbation Code(s): I50.9 - HEART FAILURE, UNSPECIFIED Qualifiers: Heart failure type: systolic Qualified Code(s): I50.23 - Acute on chronic systolic (congestive) heart failure (2) COPD exacerbation Code(s): J44.1 - CHRONIC OBSTRUCTIVE PULMONARY DISEASE W (ACUTE) EXACERBATION (3) UTI (urinary tract infection) Code(s): N39.0 - URINARY TRACT INFECTION, SITE NOT SPECIFIED Qualifiers: Urinary tract infection type: site unspecified Hematuria presence: with hematuria Qualified Code(s): N39.0 - Urinary tract infection, site not specified; R31.9 - Hematuria, unspecified (4) A-fib Code(s): I48.91 - UNSPECIFIED ATRIAL FIBRILLATION Qualifiers: Atrial fibrillation type: chronic Qualified Code(s): I48.2 - Chronic atrial fibrillation (5) HTN (hypertension) Code(s): I10 - ESSENTIAL (PRIMARY) HYPERTENSION (6) ASHD (arteriosclerotic heart disease) Code(s): I25.10 - ATHSCL HEART DISEASE OF [place] CORONARY ARTERY W/O ANG PCTRS (7) Warfarin-induced coagulopathy Code(s): D68.32 - HEMORRHAGIC DISORD D/T EXTRINSIC CIRCULATING ANTICOAGULANTS; T45.515A - ADVERSE EFFECT OF ANTICOAGULANTS, INITIAL ENCOUNTER (8) S/P AVR (aortic valve replacement) Code(s): Z95.2 - PRESENCE OF PROSTHETIC HEART VALVE Assessment/Plan (1) CHF exacerbation Assessment/Plan: -appreciate cardiology assistance -euvolemic -continue chlorthalidone Code(s): I50.9 - HEART FAILURE, UNSPECIFIED Qualifiers: Heart failure type: systolic Qualified Code(s): I50.23 - Acute on chronic systolic (congestive) heart failure (2) COPD exacerbation Assessment/Plan: -much improved -pulmonary following -solumedrol decreased to 40mg q12h -continue bronchodilators -can switch to prednisone tomorrow -pre and post to evaluate oxygen saturation -plan for discharge tomorrow Code(s): J44.1 - CHRONIC OBSTRUCTIVE PULMONARY DISEASE W (ACUTE) EXACERBATION (3) UTI (urinary tract infection) Assessment/Plan: -growing klebsiella, sensitive to cephalosporins -keflex 500mg po bid day 6/7 -use liquid as patient states she has difficulty swallowing pills Code(s): N39.0 - URINARY TRACT INFECTION, SITE NOT SPECIFIED Qualifiers: Urinary tract infection type: site unspecified Hematuria presence: with hematuria Qualified Code(s): N39.0 - Urinary tract infection, site not specified; R31.9 - Hematuria, unspecified (4) A-fib Assessment/Plan: -rate controlled -coumadin restarted Code(s): I48.91 - UNSPECIFIED ATRIAL FIBRILLATION Qualifiers: Atrial fibrillation type: chronic Qualified Code(s): I48.2 - Chronic atrial fibrillation (5) HTN (hypertension) Assessment/Plan: -controlled -continue current management Code(s): I10 - ESSENTIAL (PRIMARY) HYPERTENSION (6) Warfarin induced coagulopathy Assessment/Plan: -INR therapeutic -stop heparin gtt -will decrease coumadin to 3mg since had significant jump -maintain INR 2.5-3.5 since has mechanical valve (7) ASHD (arteriosclerotic heart disease) Assessment/Plan: -quiescent -continue current management Code(s): I25.10 - ATHSCL HEART DISEASE OF [place] CORONARY ARTERY W/O ANG PCTRS Dispo -plan for discharge tomorrow
--- NOTE | 2017-11-29 11:13 | PN ---
Progress Note (short form) - Note Progress Note: CC: HTN S: no cp, palps, dizziness; sob better Current Medications Generic Name Dose Route Start Last Admin Trade Name Freq PRN Reason Stop Dose Admin Acetaminophen 650 mg 11/26/17 06:56 Tylenol - PO Q8H PRN PAIN LEVEL 6-10 Albuterol/Ipratropium 1 amp 11/24/17 12:00 11/29/17 08:25 Duoneb - NEB 1 amp RQID JOHN Administration Amlodipine Besylate 5 mg 11/24/17 15:30 11/29/17 10:04 Norvasc - PO 5 mg DAILY JOHN Administration Atorvastatin Calcium 10 mg 11/25/17 22:00 11/28/17 22:30 Lipitor - PO 10 mg HS JOHN Administration Carvedilol 25 mg 11/25/17 22:00 11/29/17 10:05 Coreg - PO 25 mg BID JOHN Administration Cephalexin 500 mg 11/29/17 11:00 Keflex Oral Suspension - PO 11/30/17 22:01 BID JOHN Chlorthalidone 25 mg 11/27/17 10:00 11/29/17 10:07 Hygroton - PO 25 mg DAILY JOHN Administration Clopidogrel Bisulfate 75 mg 11/24/17 10:00 11/29/17 10:04 Plavix - PO 75 mg DAILY JOHN Administration Digoxin 0.125 mg 11/24/17 10:00 11/29/17 10:05 Lanoxin - PO 0.125 mg DAILY JOHN Administration Diltiazem HCl 180 mg 11/27/17 10:00 11/29/17 10:05 Cardizem Cd - PO 180 mg BID JOHN Administration Fluticasone Propionate 1 spray 11/25/17 11:45 11/29/17 10:11 Flonase - NS 1 spray BID JOHN Administration Hydralazine HCl 50 mg 11/24/17 22:00 11/29/17 06:04 Apresoline - PO 50 mg TID JOHN Administration Methylprednisolone Sodium Succinate 40 mg 11/28/17 22:00 11/29/17 10:04 Solu-Medrol - IVPUSH 40 mg BID JOHN Administration Potassium Chloride 40 meq 11/29/17 10:22 Potassium Chloride Oral Liquid PO 11/29/17 10:23 ONCE ONE Ranitidine HCl 150 mg 11/24/17 22:00 06/01/18 10:04 Zantac - PO 150 mg BID JOHN Administration Valsartan 160 mg 11/24/17 22:00 11/28/17 22:30 Diovan - PO 160 mg HS JOHN Administration Warfarin Sodium 3 mg 11/29/17 10:23 Coumadin - PO DAILY@1800 JOHN Vital Signs Period Temp Pulse Resp BP Sys/Barcenas Pulse Ox Last 24 Hr 97.5 F-98.6 F 81-96 16-20 137-157/69-90 100 NAD, calm JVD flat, neck supple diminished air mov't. + wheezes, nl effort irregularly, irregular nl s1, s2. mechanical s1, s2. + bs soft nt nd ext without e/c/c no jaundice, diaphoresis aaox3 CBC, BMP 11/29/17 08:14 11/29/17 08:14 ekg: afib with pvc, VR 100 bpm. LVH. non-sp t wave ab. no acute ischenmic changes. tele: afib, rate ok echo 10/2017: nl lv/rv, mild jean carlos, mech mvr ok, bio avr ok, mod tr, rvsp 40-50 cxr: new congestive changes with bibasilar infiltrates and pleural effusions R> L. possible bibasilar atelectasis. prominent hilar markings. left apical pleural thickening. NAT scarring. vascular stent at left clavicle. 07/2017 parathyroid scan: focus of abnormal tracer suspicious for parathyroid adenoma. assessment/plan 67 yo smoker with h/o mechanical mvr and avr (presumed mechanical, but no mention of avr in cardiology notes) 2/2 rheumatic heart disease, HFpEF, Afib with h/o cva and residual dysphagia, HTN, HL, CAD wth h/o [place] (no mention of pci in cardiology notes), pad with hx of subclavian stent and possibly also fem-pop bypass, COPD, lung ca s/p resection, chemo and xrt, pud, hyperparathyroidism ( recent parathyroid scan suspicious for parathyroid adenoma), recent renal doppler suspicious for renal artery stenosis who p/w hematuria and weakness and noted to have uncontrolled HTN. uncontrolled HTN - Presented with sbp's > 200. asx. Now improved after receiving all of her outpatient medications and one dose of IV hydralazine. Patient had recently self -d/c 2 medications: believed one medication was for copd and one was valsartan. Had also been on clonidine in the past, but not on her most recent med list. Unclear if this is rebound htn vs. other etiology. Patient with possible parathyroid adenoma, secondary htn 2/2 parathyroid disease?. - ce's neg x 2. - utox + for opiates, tsh wnl. - repeat echo pending. - 11/25: BP improved today. hydralazine 50 tid added to regimen. would decrease coreg to bid dosing. con't to monitor. - 11/26-11/29: bp remains improved sob/copd/acute diastolic hf exacerbation - bp control as above. - tx of possible copd component per pmd, pulm. - cxr with increased congestive changes. BNP elevated. s/p iv lasix 40 mg 11/24 -11/26. repeat echo pending. - Cr was rising on daily iv lasix. so transitioned back to home chlorthalidone. afib/avr/mvr with h/o CVA? - coumadin dosing per inr. - patient with mechanical mvr, details of avr still unknown. (GOAL INR 2.5 -3.5 ) - rate ok on current meds cad with hx of mi, no mention of prior intervention on outpatient cardiology notes. - ce's neg x 2. ekg without acute ischemic changes. con't plavix. Was not on statin as outpatient?, started atorva here . pad s/p subclavian stent and possible fem-pop bypass - on plavix in addition to coumadin, hgb stable. con't statin. smoking cessation counseling. ri tele
[2017-11-29 11:35] LABS: PLATELET ESTIMATE NORMAL
--- NOTE | 2017-11-29 12:22 | PN ---
Progress Note, Physician History of Present Illness: PULMONARY ALERT,LESS DYSPNEIC,C/O WEAKNESS - Current Medication List Current Medications: Active Medications Acetaminophen (Tylenol -) 650 mg PO Q8H PRN PRN Reason: PAIN LEVEL 6-10 Albuterol/Ipratropium (Duoneb -) 1 amp NEB RQID [facility] Last Admin: 11/29/17 08:25 Dose: 1 amp Amlodipine Besylate (Norvasc -) 5 mg PO DAILY [facility] Last Admin: 11/29/17 10:04 Dose: 5 mg Atorvastatin Calcium (Lipitor -) 10 mg PO HS [facility] Last Admin: 11/28/17 22:30 Dose: 10 mg Carvedilol (Coreg -) 25 mg PO BID [facility] Last Admin: 11/29/17 10:05 Dose: 25 mg Cephalexin (Keflex Oral Suspension -) 500 mg PO BID [facility] Stop: 11/30/17 22:01 Chlorthalidone (Hygroton -) 25 mg PO DAILY [facility] Last Admin: 11/29/17 10:07 Dose: 25 mg Clopidogrel Bisulfate (Plavix -) 75 mg PO DAILY [facility] Last Admin: 11/29/17 10:04 Dose: 75 mg Digoxin (Lanoxin -) 0.125 mg PO DAILY [facility] Last Admin: 11/29/17 10:05 Dose: 0.125 mg Diltiazem HCl (Cardizem Cd -) 180 mg PO BID [facility] Last Admin: 11/29/17 10:05 Dose: 180 mg Fluticasone Propionate (Flonase -) 1 spray NS BID [facility] Last Admin: 11/29/17 10:11 Dose: 1 spray Hydralazine HCl (Apresoline -) 50 mg PO TID [facility] Last Admin: 11/29/17 06:04 Dose: 50 mg Methylprednisolone Sodium Succinate (Solu-Medrol -) 40 mg IVPUSH BID [facility] Last Admin: 11/29/17 10:04 Dose: 40 mg Potassium Chloride (Potassium Chloride Oral Liquid) 40 meq PO ONCE ONE Stop: 11/29/17 13:01 Ranitidine HCl (Zantac -) 150 mg PO BID [facility] Last Admin: 11/29/17 10:04 Dose: 150 mg Valsartan (Diovan -) 160 mg PO HS [facility] Last Admin: 11/28/17 22:30 Dose: 160 mg Warfarin Sodium (Coumadin -) 3 mg PO DAILY@1800 JOHN - Objective Vital Signs: Vital Signs Temperature 97.5 F L 11/29/17 05:00 Pulse Rate 85 11/29/17 10:05 Respiratory Rate 18 11/29/17 05:00 Blood Pressure 137/69 11/29/17 05:00 O2 Sat by Pulse Oximetry (%) 100 11/28/17 21:00 Constitutional: Yes: Well Nourished, Calm Eyes: Yes: WNL HENT: Yes: WNL Neck: Yes: WNL Cardiovascular: Yes: Regular Rate and Rhythm, S1, S2 Respiratory: No: Wheezes (LESS WHEEZES BILATERALLY) Gastrointestinal: Yes: Normal Bowel Sounds, Soft Extremities: Yes: WNL Edema: No Labs: CBC, BMP 11/29/17 08:14 11/29/17 08:14 INR, PTT INR 3.28 (0.82-1.09) H D 11/29/17 06:00 Assessment/Plan Problem List - Problems (1) Hematuria Code(s): R31.9 - HEMATURIA, UNSPECIFIED (2) UTI (urinary tract infection) Code(s): N39.0 - URINARY TRACT INFECTION, SITE NOT SPECIFIED Qualifiers: Urinary tract infection type: site unspecified Hematuria presence: with hematuria Qualified Code(s): N39.0 - Urinary tract infection, site not specified; R31.9 - Hematuria, unspecified (3) Supratherapeutic INR Code(s): R79.1 - ABNORMAL COAGULATION PROFILE (4) S/P AVR (aortic valve replacement) Code(s): Z95.2 - PRESENCE OF PROSTHETIC HEART VALVE (5) S/P MVR (mitral valve replacement) Code(s): Z95.2 - PRESENCE OF PROSTHETIC HEART VALVE (6) A-fib Code(s): I48.91 - UNSPECIFIED ATRIAL FIBRILLATION Qualifiers: Atrial fibrillation type: chronic Qualified Code(s): I48.2 - Chronic atrial fibrillation (7) ASHD (arteriosclerotic heart disease) Code(s): I25.10 - ATHSCL HEART DISEASE OF [place] CORONARY ARTERY W/O ANG PCTRS (8) HTN (hypertension) Code(s): I10 - ESSENTIAL (PRIMARY) HYPERTENSION (9) COPD exacerbation Code(s): J44.1 - CHRONIC OBSTRUCTIVE PULMONARY DISEASE W (ACUTE) EXACERBATION (10) CHF (congestive heart failure) Code(s): I50.9 - HEART FAILURE, UNSPECIFIED Qualifiers: Heart failure type: unspecified Heart failure chronicity: acute on chronic Qualified Code(s): I50.9 - Heart failure, unspecified Assessment/Plan Hematuria UTI Supratherapeutic INR corrected Acute COPD Exacerbation CHF Exacerbation CAD Atrial Fibrillation s/p MVR/AVR - antibiotics - monitor H/H, INR - transfuse as needed - medrol taper - inhaled bronchodilators - lasix - monitor urine output, creatinine - short term rehab if pt consents DR GUZMAN
[2017-11-29] MEDS ORDERED: POTASSIUM CHLORIDE ORAL LIQUID 20 MEQ/15 ML PO ONE (13:00)
[2017-11-29] MEDS: CEPHALEXIN 250 MG/5 ML ORAL SUSPENSION PO SCH ×2 (14:06→21:51)
[2017-11-29] MEDS: ATORVASTATIN CA 10 MG TABLET (FP) PO SCH (21:49)
[2017-11-29] MEDS: VALSARTAN 160 MG TABLET (UD) PO SCH (21:49)
[2017-11-30] MEDS: hydrALAZINE HCL 50 MG TABLET (FP) PO SCH ×3 (07:09→22:02)
[2017-11-30] MEDS: ALBUTEROL SO4 2.5/IPRATROPIUM 0.5 INH SOL 3 ML VIAL.NEB. NEB SCH ×4 (07:42→20:04)
[2017-11-30 08:19] LABS: BASO % 0.1 % (0-2.0); HEMATOCRIT 37.8 % (32.4-45.2); HEMOGLOBIN 12.5 GM/dL (10.7-15.3); LYMPH % 1.5 % (8-40); MCH 28.4 pg (25.7-33.7); MEAN CELL VOLUME 86.3 fl (80-96); MEAN PLT VOLUME 10.2 fl (7.5-11.1); MONO % 3.6 % (3.8-10.2); NEUT % 94.8 % (42.8-82.8); PLATELET COUNT 173 K/MM3 (134-434); RBC 4.39 M/mm3 (3.60-5.2); RDW 15.1 % (11.6-15.6); WHITE BLOOD COUNT 14.7 K/mm3 (4.0-10.0)
[2017-11-30 08:32] LABS: ANION GAP 8 (8-16); BLOOD UREA NITROGEN 26 mg/dL (7-18); CHLORIDE 104 mmol/L (98-107); CO2 29 mmol/L (21-32); CREATININE 1.3 mg/dL (0.55-1.02); GLUCOSE,RANDOM 126 mg/dL (74-106); MAGNESIUM 2.1 mg/dL (1.8-2.4); PHOSPHOROUS 2.5 mg/dL (2.5-4.9); POTASSIUM 3.7 mmol/L (3.5-5.1); SODIUM 141 mmol/L (136-145)
[2017-11-30 08:37] LABS: INR 3.41 (0.82-1.09); PROTHROMBIN TIME (PATIENT) 38.5 SEC (9.7-13.0)
--- NOTE | 2017-11-30 08:48 | PN ---
Progress Note, Physician History of Present Illness: PULMONARY ALERT,COMFORTABLE,LESS DYSPNEIC,+ DRY COUGH - Current Medication List Current Medications: Active Medications Acetaminophen (Tylenol -) 650 mg PO Q8H PRN PRN Reason: PAIN LEVEL 6-10 Albuterol/Ipratropium (Duoneb -) 1 amp NEB RQID [facility] Last Admin: 11/29/17 21:07 Dose: Not Given Amlodipine Besylate (Norvasc -) 5 mg PO DAILY [facility] Last Admin: 11/29/17 10:04 Dose: 5 mg Atorvastatin Calcium (Lipitor -) 10 mg PO [facility] Last Admin: 11/29/17 21:49 Dose: 10 mg Carvedilol (Coreg -) 25 mg PO BID [facility] Last Admin: 11/29/17 21:49 Dose: 25 mg Cephalexin (Keflex Oral Suspension -) 500 mg PO BID [facility] Stop: 11/30/17 22:01 Last Admin: 11/29/17 21:51 Dose: 500 mg Chlorthalidone (Hygroton -) 25 mg PO DAILY [facility] Last Admin: 11/29/17 10:07 Dose: 25 mg Clopidogrel Bisulfate (Plavix -) 75 mg PO DAILY [facility] Last Admin: 11/29/17 10:04 Dose: 75 mg Digoxin (Lanoxin -) 0.125 mg PO DAILY [facility] Last Admin: 11/29/17 10:05 Dose: 0.125 mg Diltiazem HCl (Cardizem Cd -) 180 mg PO BID [facility] Last Admin: 11/29/17 21:49 Dose: 180 mg Fluticasone Propionate (Flonase -) 1 spray NS BID [facility] Last Admin: 11/29/17 22:22 Dose: Not Given Hydralazine HCl (Apresoline -) 50 mg PO TID [facility] Last Admin: 11/30/17 07:09 Dose: 50 mg Methylprednisolone Sodium Succinate (Solu-Medrol -) 40 mg IVPUSH BID [facility] Last Admin: 11/29/17 21:49 Dose: 40 mg Ranitidine HCl (Zantac -) 150 mg PO BID [facility] Last Admin: 11/29/17 21:49 Dose: 150 mg Valsartan (Diovan -) 160 mg PO HS [facility] Last Admin: 11/29/17 21:49 Dose: 160 mg Warfarin Sodium (Coumadin -) 3 mg PO DAILY@1800 [facility] Last Admin: 11/29/17 17:24 Dose: 3 mg - Objective Vital Signs: Vital Signs Temperature 97.9 F 11/30/17 06:00 Pulse Rate 88 11/30/17 06:00 Respiratory Rate 18 11/30/17 06:00 Blood Pressure 158/73 11/30/17 06:00 O2 Sat by Pulse Oximetry (%) 97 11/29/17 21:00 Constitutional: Yes: Well Nourished, Calm Eyes: Yes: WNL HENT: Yes: WNL Neck: Yes: WNL Cardiovascular: Yes: Pulse Irregular, S1, S2 Respiratory: Yes: Wheezes (LESS WHEEZES BILATERALLY) Gastrointestinal: Yes: Normal Bowel Sounds, Soft Extremities: Yes: WNL Edema: No Labs: CBC, BMP 11/30/17 07:30 INR, PTT INR 3.28 (0.82-1.09) H D 11/29/17 06:00 Assessment/Plan Problem List - Problems (1) Hematuria Code(s): R31.9 - HEMATURIA, UNSPECIFIED (2) UTI (urinary tract infection) Code(s): N39.0 - URINARY TRACT INFECTION, SITE NOT SPECIFIED Qualifiers: Urinary tract infection type: site unspecified Hematuria presence: with hematuria Qualified Code(s): N39.0 - Urinary tract infection, site not specified; R31.9 - Hematuria, unspecified (3) Supratherapeutic INR Code(s): R79.1 - ABNORMAL COAGULATION PROFILE (4) S/P AVR (aortic valve replacement) Code(s): Z95.2 - PRESENCE OF PROSTHETIC HEART VALVE (5) S/P MVR (mitral valve replacement) Code(s): Z95.2 - PRESENCE OF PROSTHETIC HEART VALVE (6) A-fib Code(s): I48.91 - UNSPECIFIED ATRIAL FIBRILLATION Qualifiers: Atrial fibrillation type: chronic Qualified Code(s): I48.2 - Chronic atrial fibrillation (7) ASHD (arteriosclerotic heart disease) Code(s): I25.10 - ATHSCL HEART DISEASE OF [place] CORONARY ARTERY W/O ANG PCTRS (8) HTN (hypertension) Code(s): I10 - ESSENTIAL (PRIMARY) HYPERTENSION (9) COPD exacerbation Code(s): J44.1 - CHRONIC OBSTRUCTIVE PULMONARY DISEASE W (ACUTE) EXACERBATION (10) CHF (congestive heart failure) Code(s): I50.9 - HEART FAILURE, UNSPECIFIED Qualifiers: Heart failure type: unspecified Heart failure chronicity: acute on chronic Qualified Code(s): I50.9 - Heart failure, unspecified Assessment/Plan Hematuria UTI Supratherapeutic INR corrected Acute COPD Exacerbation CHF Exacerbation CAD Atrial Fibrillation s/p MVR/AVR - antibiotics - monitor H/H, INR - transfuse as needed - medrol taper - inhaled bronchodilators - lasix - monitor urine output, creatinine - short term rehab if pt consents DR GUZMAN
[2017-11-30] MEDS ORDERED: PT OWN MED DRAWER 7, Y5N ONE ×2 (09:01→22:00)
[2017-11-30] MEDS: amLODIPine BESYLATE 5 MG TABLET (FP) PO SCH (09:10)
[2017-11-30] MEDS: DIGOXIN 0.125 MG TABLET (FP) PO SCH (09:10)
[2017-11-30] MEDS: RANITIDINE HCL 150 MG TABLET (FP) PO SCH ×2 (09:10→22:03)
[2017-11-30] MEDS: CARVEDILOL 25 MG TABLET (FP) PO SCH ×2 (09:10→22:02)
[2017-11-30] MEDS: methylPREDNISolone NA SUCC 40 MG/1 ML VIAL IVPUSH SCH (09:10)
[2017-11-30] MEDS: CHLORTHALIDONE 25 MG TABLET PO SCH (09:10)
[2017-11-30] MEDS: CLOPIDOGREL BISULFATE 75 MG TABLET (FP) PO SCH (09:10)
[2017-11-30] MEDS: CEPHALEXIN 250 MG/5 ML ORAL SUSPENSION PO SCH ×2 (09:10→22:03)
[2017-11-30] MEDS: FLUTICASONE PROP 0.05% 16 GM NASAL SPRAY NS SCH ×2 (09:11→22:04)
[2017-11-30 09:46] LABS: CALCIUM 10.7 mg/dL (8.5-10.1)
--- NOTE | 2017-11-30 10:17 | PN ---
Progress Note, Physician History of Present Illness: No events Complains of mouth pain No chest pain No tele - Current Medication List Current Medications: Active Medications Acetaminophen (Tylenol -) 650 mg PO Q8H PRN PRN Reason: PAIN LEVEL 6-10 Albuterol/Ipratropium (Duoneb -) 1 amp NEB RQID [facility] Last Admin: 11/30/17 07:42 Dose: 1 amp Amlodipine Besylate (Norvasc -) 5 mg PO DAILY [facility] Last Admin: 11/30/17 09:10 Dose: 5 mg Atorvastatin Calcium (Lipitor -) 10 mg PO [facility] Last Admin: 11/29/17 21:49 Dose: 10 mg Carvedilol (Coreg -) 25 mg PO BID [facility] Last Admin: 11/30/17 09:10 Dose: 25 mg Cephalexin (Keflex Oral Suspension -) 500 mg PO BID [facility] Stop: 11/30/17 22:01 Last Admin: 11/30/17 09:10 Dose: 500 mg Chlorthalidone (Hygroton -) 25 mg PO DAILY [facility] Last Admin: 11/30/17 09:10 Dose: 25 mg Clopidogrel Bisulfate (Plavix -) 75 mg PO DAILY [facility] Last Admin: 11/30/17 09:10 Dose: 75 mg Digoxin (Lanoxin -) 0.125 mg PO DAILY [facility] Last Admin: 11/30/17 09:10 Dose: 0.125 mg Diltiazem HCl (Cardizem Cd -) 180 mg PO BID [facility] Last Admin: 11/30/17 09:10 Dose: 180 mg Fluticasone Propionate (Flonase -) 1 spray NS BID [facility] Last Admin: 11/30/17 09:11 Dose: Not Given Hydralazine HCl (Apresoline -) 50 mg PO TID [facility] Last Admin: 11/30/17 07:09 Dose: 50 mg Methylprednisolone Sodium Succinate (Solu-Medrol -) 40 mg IVPUSH BID [facility] Last Admin: 11/30/17 09:10 Dose: 40 mg Ranitidine HCl (Zantac -) 150 mg PO BID [facility] Last Admin: 11/30/17 09:10 Dose: 150 mg Valsartan (Diovan -) 160 mg PO [facility] Last Admin: 11/29/17 21:49 Dose: 160 mg Warfarin Sodium (Coumadin -) 3 mg PO DAILY@1800 [facility] Last Admin: 11/29/17 17:24 Dose: 3 mg - Objective Vital Signs: Vital Signs Temperature 97.9 F 11/30/17 06:00 Pulse Rate 82 11/30/17 09:10 Respiratory Rate 18 11/30/17 06:00 Blood Pressure 158/73 11/30/17 06:00 O2 Sat by Pulse Oximetry (%) 97 11/29/17 21:00 Constitutional: Yes: No Distress, Calm Eyes: Yes: WNL HENT: Yes: Other (oral thrush) Neck: Yes: WNL Cardiovascular: Yes: Pulse Irregular Respiratory: Yes: Rales, Rhonchi Gastrointestinal: Yes: Normal Bowel Sounds Extremities: Yes: WNL Edema: No Labs: CBC, BMP 11/30/17 07:30 11/30/17 07:30 INR, PTT INR 3.41 (0.82-1.09) H 11/30/17 07:30 Assessment/Plan 67 yo smoker with h/o mechanical mvr and avr (presumed mechanical, but no mention of avr in cardiology notes) 2/2 rheumatic heart disease, HFpEF, Afib with h/o cva and residual dysphagia, HTN, HL, CAD wth h/o [place] (no mention of pci in cardiology notes), pad with hx of subclavian stent and possibly also fem-pop bypass, COPD, lung ca s/p resection, chemo and xrt, pud, hyperparathyroidism ( recent parathyroid scan suspicious for parathyroid adenoma), recent renal doppler suspicious for renal artery stenosis who p/w hematuria and weakness and noted to have uncontrolled HTN. uncontrolled HTN - Presented with sbp's > 200. asx. Now improved after receiving all of her outpatient medications and one dose of IV hydralazine. Patient had recently self -d/c 2 medications: believed one medication was for copd and one was valsartan. Had also been on clonidine in the past, but not on her most recent med list. Unclear if this is rebound htn vs. other etiology. Patient with possible parathyroid adenoma, secondary htn 2/2 parathyroid disease?. - ce's neg x 2. - utox + for opiates, tsh wnl. - repeat echo pending. - 11/25: BP improved today. hydralazine 50 tid added to regimen. would decrease coreg to bid dosing. con't to monitor. - 11/26-11/29: bp remains improved 6/2: BPs 140-150/70s. Reasonable goal given initial hypertensive state. Continue current regimen ofr Valsartan, amlodipine, hydral and coreg. Will titrate Amlodipine to 10mg for tomorrow AM dose. sob/copd/acute diastolic hf exacerbation - bp control as above. - tx of possible copd component per pmd, pulm. - cxr with increased congestive changes. BNP elevated. s/p iv lasix 40 mg 11/24 -11/26. repeat echo pending. - Cr was rising on daily iv lasix. so transitioned back to home chlorthalidone. afib/avr/mvr with h/o CVA? - coumadin dosing per inr. - patient with mechanical mvr, details of avr still unknown. (GOAL INR 2.5 -3.5 ) - rate ok on current meds 11/30: INR 3.41 today (Mechanical MV goal range 2.5 to 3.5). Continue 3mg follow INR daily. cad with hx of mi, no mention of prior intervention on outpatient cardiology notes. - ce's neg x 2. ekg without acute ischemic changes. con't plavix. Was not on statin as outpatient?, started atorva here . pad s/p subclavian stent and possible fem-pop bypass - on plavix in addition to coumadin, hgb stable. con't statin. smoking cessation counseling.
[2017-11-30] MEDS ORDERED: WARFARIN NA 2 MG TABLET (UD) PO SCH (10:43)
[2017-11-30] MEDS: NYSTATIN 500,000 UNITS/5 ML SUSPENSION PO SCH ×3 (11:51→23:59)
[2017-11-30] MEDS: predniSONE 20 MG TABLET (UD) PO SCH (12:03)
[2017-11-30] MEDS: VALSARTAN 160 MG TABLET (UD) PO SCH (22:03)
[2017-11-30] MEDS: ATORVASTATIN CA 10 MG TABLET (FP) PO SCH (22:03)
[2017-12-01] MEDS: ALBUTEROL SO4 2.5/IPRATROPIUM 0.5 INH SOL 3 ML VIAL.NEB. NEB SCH ×4 (08:14→20:33)
--- NOTE | 2017-12-01 09:30 | PN ---
Progress Note, Physician History of Present Illness: Feels bloated but has had 2 large BMs overnight No CV complaints No tele. - Current Medication List Current Medications: Active Medications Acetaminophen (Tylenol -) 650 mg PO Q8H PRN PRN Reason: PAIN LEVEL 6-10 Albuterol/Ipratropium (Duoneb -) 1 amp NEB RQID [facility] Last Admin: 12/01/17 08:14 Dose: 1 amp Amlodipine Besylate (Norvasc -) 10 mg PO DAILY [facility] Atorvastatin Calcium (Lipitor -) 10 mg PO HS [facility] Last Admin: 11/30/17 22:03 Dose: 10 mg Carvedilol (Coreg -) 25 mg PO BID [facility] Last Admin: 11/30/17 22:02 Dose: 25 mg Chlorthalidone (Hygroton -) 25 mg PO DAILY [facility] Last Admin: 11/30/17 09:10 Dose: 25 mg Clopidogrel Bisulfate (Plavix -) 75 mg PO DAILY [facility] Last Admin: 11/30/17 09:10 Dose: 75 mg Digoxin (Lanoxin -) 0.125 mg PO DAILY [facility] Last Admin: 11/30/17 09:10 Dose: 0.125 mg Diltiazem HCl (Cardizem Cd -) 180 mg PO BID [facility] Last Admin: 11/30/17 22:03 Dose: 180 mg Fluticasone Propionate (Flonase -) 1 spray NS BID [facility] Last Admin: 11/30/17 22:04 Dose: Not Given Hydralazine HCl (Apresoline -) 50 mg PO TID [facility] Last Admin: 11/30/17 22:02 Dose: 50 mg Nystatin (Nystatin Oral Suspension -) 500,000 units PO Q6HPO [facility] Last Admin: 11/30/17 23:59 Dose: Not Given Prednisone (Deltasone -) 60 mg PO DAILY [facility] Last Admin: 11/30/17 12:03 Dose: Not Given Ranitidine HCl (Zantac -) 150 mg PO BID [facility] Last Admin: 11/30/17 22:03 Dose: 150 mg Valsartan (Diovan -) 160 mg PO HS [facility] Last Admin: 11/30/17 22:03 Dose: 160 mg Warfarin Sodium (Coumadin -) 2 mg PO DAILY@1800 [facility] Last Admin: 11/30/17 17:41 Dose: 2 mg - Objective Vital Signs: Vital Signs Temperature 98.1 F 12/01/17 06:00 Pulse Rate 68 12/01/17 06:00 Respiratory Rate 20 12/01/17 06:00 Blood Pressure 141/50 12/01/17 06:00 O2 Sat by Pulse Oximetry (%) 99 11/30/17 21:00 Constitutional: Yes: No Distress Eyes: Yes: Conjunctiva Clear HENT: Yes: WNL Neck: Yes: WNL Cardiovascular: Yes: Pulse Irregular, Murmur (Mechanical S1.) Respiratory: Yes: CTA Bilaterally Gastrointestinal: Yes: Normal Bowel Sounds (Slightly distended) Musculoskeletal: Yes: WNL Extremities: Yes: WNL Edema: No Labs: CBC, BMP 11/30/17 07:30 11/30/17 07:30 INR, PTT INR 3.41 (0.82-1.09) H 11/30/17 07:30 Assessment/Plan 67 yo smoker with h/o mechanical mvr and avr (presumed mechanical, but no mention of avr in cardiology notes) 2/2 rheumatic heart disease, HFpEF, Afib with h/o cva and residual dysphagia, HTN, HL, CAD wth h/o [place] (no mention of pci in cardiology notes), pad with hx of subclavian stent and possibly also fem-pop bypass, COPD, lung ca s/p resection, chemo and xrt, pud, hyperparathyroidism ( recent parathyroid scan suspicious for parathyroid adenoma), recent renal doppler suspicious for renal artery stenosis who p/w hematuria and weakness and noted to have uncontrolled HTN. uncontrolled HTN - Presented with sbp's > 200. asx. Now improved after receiving all of her outpatient medications and one dose of IV hydralazine. Patient had recently self -d/c 2 medications: believed one medication was for copd and one was valsartan. Had also been on clonidine in the past, but not on her most recent med list. Unclear if this is rebound htn vs. other etiology. Patient with possible parathyroid adenoma, secondary htn 2/2 parathyroid disease?. - ce's neg x 2. - utox + for opiates, tsh wnl. - repeat echo pending. - 11/25: BP improved today. hydralazine 50 tid added to regimen. would decrease coreg to bid dosing. con't to monitor. - 11/26-11/29: bp remains improved /: BPs 140-150/70s. Reasonable goal given initial hypertensive state. Continue current regimen of Valsartan, amlodipine, hydral and coreg. Will titrate Amlodipine to 10mg for tomorrow AM dose. 12/01: BP improved on higher Amlodipine dose. Continue sob/copd/acute diastolic hf exacerbation - bp control as above. - tx of possible copd component per pmd, pulm. - cxr with increased congestive changes. BNP elevated. s/p iv lasix 40 mg 11/24 -11/26. repeat echo pending. - Cr was rising on daily iv lasix. so transitioned back to home chlorthalidone. afib/avr/mvr with h/o CVA? - coumadin dosing per inr. - patient with mechanical mvr, details of avr still unknown. (GOAL INR 2.5 -3.5 ) - rate ok on current meds 11/30: INR 3.41 today (Mechanical MV goal range 2.5 to 3.5). Continue 3mg follow INR daily. 12/01: Received coumadin 2mg last evening. INR today not sent. Ordered. cad with hx of mi, no mention of prior intervention on outpatient cardiology notes. - ce's neg x 2. ekg without acute ischemic changes. con't plavix. Was not on statin as outpatient?, started atorva here . pad s/p subclavian stent and possible fem-pop bypass - on plavix in addition to coumadin, hgb stable. con't statin. smoking cessation counseling.
[2017-12-01] MEDS: CLOPIDOGREL BISULFATE 75 MG TABLET (FP) PO SCH (10:27)
[2017-12-01] MEDS: RANITIDINE HCL 150 MG TABLET (FP) PO SCH ×2 (10:27→21:41)
[2017-12-01] MEDS: DIGOXIN 0.125 MG TABLET (FP) PO SCH (10:27)
[2017-12-01] MEDS: amLODIPine BESYLATE 10 MG TABLET (FP) PO SCH (10:28)
[2017-12-01] MEDS: predniSONE 20 MG TABLET (UD) PO SCH (10:28)
[2017-12-01] MEDS: CHLORTHALIDONE 25 MG TABLET PO SCH (10:28)
[2017-12-01] MEDS: CARVEDILOL 25 MG TABLET (FP) PO SCH ×2 (10:28→21:41)
[2017-12-01] MEDS: FLUTICASONE PROP 0.05% 16 GM NASAL SPRAY NS SCH ×2 (10:29→21:42)
--- NOTE | 2017-12-01 10:31 | PN ---
Progress Note, Physician History of Present Illness: PULMONARY AWAKE OOB-CHAIR,-RESP DISTRESS - Current Medication List Current Medications: Active Medications Acetaminophen (Tylenol -) 650 mg PO Q8H PRN PRN Reason: PAIN LEVEL 6-10 Albuterol/Ipratropium (Duoneb -) 1 amp NEB RQID [facility] Last Admin: 12/01/17 08:14 Dose: 1 amp Amlodipine Besylate (Norvasc -) 10 mg PO DAILY [facility] Atorvastatin Calcium (Lipitor -) 10 mg PO HS [facility] Last Admin: 11/30/17 22:03 Dose: 10 mg Carvedilol (Coreg -) 25 mg PO BID [facility] Last Admin: 11/30/17 22:02 Dose: 25 mg Chlorthalidone (Hygroton -) 25 mg PO DAILY [facility] Last Admin: 11/30/17 09:10 Dose: 25 mg Clopidogrel Bisulfate (Plavix -) 75 mg PO DAILY [facility] Last Admin: 11/30/17 09:10 Dose: 75 mg Digoxin (Lanoxin -) 0.125 mg PO DAILY [facility] Last Admin: 11/30/17 09:10 Dose: 0.125 mg Diltiazem HCl (Cardizem Cd -) 180 mg PO BID [facility] Last Admin: 11/30/17 22:03 Dose: 180 mg Fluticasone Propionate (Flonase -) 1 spray NS BID [facility] Last Admin: 11/30/17 22:04 Dose: Not Given Hydralazine HCl (Apresoline -) 50 mg PO TID [facility] Last Admin: 11/30/17 22:02 Dose: 50 mg Nystatin (Nystatin Oral Suspension -) 500,000 units PO Q6HPO [facility] Last Admin: 11/30/17 23:59 Dose: Not Given Prednisone (Deltasone -) 60 mg PO DAILY [facility] Last Admin: 11/30/17 12:03 Dose: Not Given Ranitidine HCl (Zantac -) 150 mg PO BID [facility] Last Admin: 11/30/17 22:03 Dose: 150 mg Valsartan (Diovan -) 160 mg PO HS [facility] Last Admin: 11/30/17 22:03 Dose: 160 mg Warfarin Sodium (Coumadin -) 2 mg PO DAILY@1800 [facility] Last Admin: 11/30/17 17:41 Dose: 2 mg - Objective Vital Signs: Vital Signs Temperature 98.1 F 12/01/17 06:00 Pulse Rate 68 12/01/17 06:00 Respiratory Rate 20 12/01/17 06:00 Blood Pressure 141/50 12/01/17 06:00 O2 Sat by Pulse Oximetry (%) 99 11/30/17 21:00 Constitutional: Yes: Well Nourished, Calm Eyes: Yes: WNL HENT: Yes: WNL Neck: Yes: WNL Cardiovascular: Yes: Pulse Irregular, S1, S2 Respiratory: Yes: Wheezes (SCATTERED SHYANN WHEEZES) Gastrointestinal: Yes: Normal Bowel Sounds, Soft Extremities: Yes: WNL Edema: No Labs: CBC, BMP Assessment/Plan Problem List - Problems (1) Hematuria Code(s): R31.9 - HEMATURIA, UNSPECIFIED (2) UTI (urinary tract infection) Code(s): N39.0 - URINARY TRACT INFECTION, SITE NOT SPECIFIED Qualifiers: Urinary tract infection type: site unspecified Hematuria presence: with hematuria Qualified Code(s): N39.0 - Urinary tract infection, site not specified; R31.9 - Hematuria, unspecified (3) Supratherapeutic INR Code(s): R79.1 - ABNORMAL COAGULATION PROFILE (4) S/P AVR (aortic valve replacement) Code(s): Z95.2 - PRESENCE OF PROSTHETIC HEART VALVE (5) S/P MVR (mitral valve replacement) Code(s): Z95.2 - PRESENCE OF PROSTHETIC HEART VALVE (6) A-fib Code(s): I48.91 - UNSPECIFIED ATRIAL FIBRILLATION Qualifiers: Atrial fibrillation type: chronic Qualified Code(s): I48.2 - Chronic atrial fibrillation (7) ASHD (arteriosclerotic heart disease) Code(s): I25.10 - ATHSCL HEART DISEASE OF [place] CORONARY ARTERY W/O ANG PCTRS (8) HTN (hypertension) Code(s): I10 - ESSENTIAL (PRIMARY) HYPERTENSION (9) COPD exacerbation Code(s): J44.1 - CHRONIC OBSTRUCTIVE PULMONARY DISEASE W (ACUTE) EXACERBATION (10) CHF (congestive heart failure) Code(s): I50.9 - HEART FAILURE, UNSPECIFIED Qualifiers: Heart failure type: unspecified Heart failure chronicity: acute on chronic Qualified Code(s): I50.9 - Heart failure, unspecified Assessment/Plan UTI Supratherapeutic INR corrected Acute COPD Exacerbation CHF Exacerbation CAD Atrial Fibrillation s/p MVR/AVR - monitor H/H, INR - transfuse as needed - Prednisone - inhaled bronchodilators - lasix - monitor urine output, creatinine - short term rehab if pt consents DR GUZMAN
--- NOTE | 2017-12-01 10:58 | PN ---
Progress Note, Physician Chief Complaint: , SOB has improved C/O Oral thrush - Current Medication List Current Medications: Active Medications Acetaminophen (Tylenol -) 650 mg PO Q8H PRN PRN Reason: PAIN LEVEL 6-10 Albuterol/Ipratropium (Duoneb -) 1 amp NEB RQID [facility] Last Admin: 12/01/17 08:14 Dose: 1 amp Amlodipine Besylate (Norvasc -) 10 mg PO DAILY [facility] Last Admin: 12/01/17 10:28 Dose: 10 mg Atorvastatin Calcium (Lipitor -) 10 mg PO HS [facility] Last Admin: 11/30/17 22:03 Dose: 10 mg Carvedilol (Coreg -) 25 mg PO BID [facility] Last Admin: 12/01/17 10:28 Dose: 25 mg Chlorthalidone (Hygroton -) 25 mg PO DAILY [facility] Last Admin: 12/01/17 10:28 Dose: 25 mg Clopidogrel Bisulfate (Plavix -) 75 mg PO DAILY [facility] Last Admin: 12/01/17 10:27 Dose: 75 mg Digoxin (Lanoxin -) 0.125 mg PO DAILY [facility] Last Admin: 12/01/17 10:27 Dose: 0.125 mg Diltiazem HCl (Cardizem Cd -) 180 mg PO BID [facility] Last Admin: 12/01/17 10:27 Dose: 180 mg Fluticasone Propionate (Flonase -) 1 spray NS BID [facility] Last Admin: 12/01/17 10:29 Dose: 1 spray Hydralazine HCl (Apresoline -) 50 mg PO TID [facility] Last Admin: 11/30/17 22:02 Dose: 50 mg Nystatin (Nystatin Oral Suspension -) 500,000 units PO Q6HPO [facility] Last Admin: 11/30/17 23:59 Dose: Not Given Prednisone (Deltasone -) 40 mg PO DAILY [facility] Ranitidine HCl (Zantac -) 150 mg PO BID [facility] Last Admin: 12/01/17 10:27 Dose: 150 mg Valsartan (Diovan -) 160 mg PO HS [facility] Last Admin: 11/30/17 22:03 Dose: 160 mg Warfarin Sodium (Coumadin -) 2 mg PO DAILY@1800 [facility] Last Admin: 11/30/17 17:41 Dose: 2 mg - Objective Vital Signs: Vital Signs Temperature 98.1 F 12/01/17 06:00 Pulse Rate 84 06/03/18 10:27 Respiratory Rate 20 12/01/17 06:00 Blood Pressure 141/50 12/01/17 06:00 O2 Sat by Pulse Oximetry (%) 99 11/30/17 21:00 Constitutional: Yes: No Distress, Calm. No: Anxious HEENT: Atraumatic, Normocephalic, Oral thrush,Conjunctiva Clear, EOM Intact. No: Diplopia Neck: Yes: Supple, Trachea Midline. No: Decreased ROM, Lymphadenopathy Cardiovascular: Yes: Pulse Irregular, Rub, S1, S2. No: JVD, Gallop, Murmur Respiratory: Yes: Regular, Wheezes Gastrointestinal: Yes: Normal Bowel Sounds, Soft Musculoskeletal: Yes: Back Pain Extremities: No: Calf Tenderne RUE: 1+, LLE: Trace Left Doralis Pedis: 1+, Right Dorsalis Pedis: 1+ Neurological: Yes: Alert, Oriented, Motor WNL, LUE, LLE, RUE, RLE Labs: CBC, BMP 11/30/17 07:30 11/30/17 07:30 INR, PTT INR 3.41 (0.82-1.09) H 11/30/17 07:30 Problem List - Problems (1) CHF exacerbation Assessment/Plan: Improved , cont current management cardiac diet serial BMP Code(s): I50.9 - HEART FAILURE, UNSPECIFIED Qualifiers: Heart failure type: systolic Qualified Code(s): I50.23 - Acute on chronic systolic (congestive) heart failure (2) COPD (chronic obstructive pulmonary disease) Assessment/Plan: On Spiriva, Duoneb , switch to POsteroids, F/U Pulmonary consult, desats on exertion needs home O2 or JUAN M Code(s): J44.9 - CHRONIC OBSTRUCTIVE PULMONARY DISEASE, UNSPECIFIED Qualifiers: COPD type: unspecified COPD Qualified Code(s): J44.9 - Chronic obstructive pulmonary disease, unspecified (3) UTI (urinary tract infection) Assessment/Plan: Completed abx , Hematuria resolved Code(s): N39.0 - URINARY TRACT INFECTION, SITE NOT SPECIFIED Qualifiers: Urinary tract infection type: site unspecified Hematuria presence: with hematuria Qualified Code(s): N39.0 - Urinary tract infection, site not specified; R31.9 - Hematuria, unspecified (4) Accelerated hypertension Assessment/Plan: Now well controlled Code(s): I10 - ESSENTIAL (PRIMARY) HYPERTENSION (5) Supratherapeutic INR Assessment/Plan: INR at target Code(s): R79.1 - ABNORMAL COAGULATION PROFILE (6) Persistent atrial fibrillation Code(s): I48.1 - PERSISTENT ATRIAL FIBRILLATION (7) S/P AVR (aortic valve replacement) Assessment/Plan: No active issue Code(s): Z95.2 - PRESENCE OF PROSTHETIC HEART VALVE (8) Oral thrush Assessment/Plan: On Steroids add Nystatin 50 K unit q 6 hrly, oral care. Code(s): B37.0 - CANDIDAL STOMATITIS
--- NOTE | 2017-12-01 11:01 | PN ---
Progress Note, Physician Chief Complaint: , SOB has improved C/O Oral thrush - Current Medication List Current Medications: Active Medications Acetaminophen (Tylenol -) 650 mg PO Q8H PRN PRN Reason: PAIN LEVEL 6-10 Albuterol/Ipratropium (Duoneb -) 1 amp NEB RQID [facility] Last Admin: 12/01/17 08:14 Dose: 1 amp Amlodipine Besylate (Norvasc -) 10 mg PO DAILY [facility] Last Admin: 12/01/17 10:28 Dose: 10 mg Atorvastatin Calcium (Lipitor -) 10 mg PO HS [facility] Last Admin: 11/30/17 22:03 Dose: 10 mg Carvedilol (Coreg -) 25 mg PO BID [facility] Last Admin: 12/01/17 10:28 Dose: 25 mg Chlorthalidone (Hygroton -) 25 mg PO DAILY [facility] Last Admin: 12/01/17 10:28 Dose: 25 mg Clopidogrel Bisulfate (Plavix -) 75 mg PO DAILY [facility] Last Admin: 12/01/17 10:27 Dose: 75 mg Digoxin (Lanoxin -) 0.125 mg PO DAILY [facility] Last Admin: 12/01/17 10:27 Dose: 0.125 mg Diltiazem HCl (Cardizem Cd -) 180 mg PO BID [facility] Last Admin: 12/01/17 10:27 Dose: 180 mg Fluticasone Propionate (Flonase -) 1 spray NS BID [facility] Last Admin: 12/01/17 10:29 Dose: 1 spray Hydralazine HCl (Apresoline -) 50 mg PO TID [facility] Last Admin: 11/30/17 22:02 Dose: 50 mg Nystatin (Nystatin Oral Suspension -) 500,000 units PO Q6HPO [facility] Last Admin: 11/30/17 23:59 Dose: Not Given Prednisone (Deltasone -) 40 mg PO DAILY [facility] Ranitidine HCl (Zantac -) 150 mg PO BID [facility] Last Admin: 12/01/17 10:27 Dose: 150 mg Valsartan (Diovan -) 160 mg PO HS [facility] Last Admin: 11/30/17 22:03 Dose: 160 mg Warfarin Sodium (Coumadin -) 2 mg PO DAILY@1800 [facility] Last Admin: 11/30/17 17:41 Dose: 2 mg - Objective Vital Signs: Vital Signs Temperature 98.1 F 12/01/17 06:00 Pulse Rate 84 06/03/18 10:27 Respiratory Rate 20 12/01/17 06:00 Blood Pressure 141/50 12/01/17 06:00 O2 Sat by Pulse Oximetry (%) 99 11/30/17 21:00 Constitutional: Yes: No Distress, Calm. No: Anxious HEENT: Atraumatic, Normocephalic, Oral thrush,Conjunctiva Clear, EOM Intact. No: Diplopia Neck: Yes: Supple, Trachea Midline. No: Decreased ROM, Lymphadenopathy Cardiovascular: Yes: Pulse Irregular, Rub, S1, S2. No: JVD, Gallop, Murmur Respiratory: Yes: Regular, Wheezes Gastrointestinal: Yes: Normal Bowel Sounds, Soft Musculoskeletal: Yes: Back Pain Extremities: No: Calf Tenderne RUE: 1+, LLE: Trace Left Doralis Pedis: 1+, Right Dorsalis Pedis: 1+ Neurological: Yes: Alert, Oriented, Motor WNL, LUE, LLE, RUE, RLE Labs: CBC, BMP 11/30/17 07:30 11/30/17 07:30 INR, PTT INR 3.41 (0.82-1.09) H 11/30/17 07:30 Problem List - Problems (1) CHF exacerbation Assessment/Plan: Improved , cont current management cardiac diet serial BMP Code(s): I50.9 - HEART FAILURE, UNSPECIFIED Qualifiers: Heart failure type: systolic Qualified Code(s): I50.23 - Acute on chronic systolic (congestive) heart failure (2) COPD (chronic obstructive pulmonary disease) Assessment/Plan: On Spiriva, Duoneb , switch to POsteroids, F/U Pulmonary consult, desats on exertion needs home O2 or JUAN M Code(s): J44.9 - CHRONIC OBSTRUCTIVE PULMONARY DISEASE, UNSPECIFIED Qualifiers: COPD type: unspecified COPD Qualified Code(s): J44.9 - Chronic obstructive pulmonary disease, unspecified (3) UTI (urinary tract infection) Assessment/Plan: Completed abx , Hematuria resolved Code(s): N39.0 - URINARY TRACT INFECTION, SITE NOT SPECIFIED Qualifiers: Urinary tract infection type: site unspecified Hematuria presence: with hematuria Qualified Code(s): N39.0 - Urinary tract infection, site not specified; R31.9 - Hematuria, unspecified (4) Accelerated hypertension Assessment/Plan: Now well controlled Code(s): I10 - ESSENTIAL (PRIMARY) HYPERTENSION (5) Supratherapeutic INR Assessment/Plan: INR at target Code(s): R79.1 - ABNORMAL COAGULATION PROFILE (6) Persistent atrial fibrillation Code(s): I48.1 - PERSISTENT ATRIAL FIBRILLATION (7) S/P AVR (aortic valve replacement) Assessment/Plan: No active issue Code(s): Z95.2 - PRESENCE OF PROSTHETIC HEART VALVE (8) Oral thrush Assessment/Plan: On Nystatin 50 K unit q 6 hrly, oral care. Code(s): B37.0 - CANDIDAL STOMATITIS
[2017-12-01] MEDS: NYSTATIN 500,000 UNITS/5 ML SUSPENSION PO SCH ×5 (12:17→23:20)
[2017-12-01 12:20] LABS: BASO % 0.4 % (0-2.0); HEMATOCRIT 42.5 % (32.4-45.2); HEMOGLOBIN 13.6 GM/dL (10.7-15.3); LYMPH % 1.2 % (8-40); MCH 27.9 pg (25.7-33.7); MCHC 32.1 g/dl (32.0-36.0); MEAN CELL VOLUME 86.9 fl (80-96); MEAN PLT VOLUME 9.8 fl (7.5-11.1); MONO % 8.6 % (3.8-10.2); NEUT % 89.8 % (42.8-82.8); PLATELET COUNT 189 K/MM3 (134-434); RBC 4.89 M/mm3 (3.60-5.2); RDW 15.4 % (11.6-15.6); WHITE BLOOD COUNT 22.9 K/mm3 (4.0-10.0)
[2017-12-01 12:39] LABS: INR 3.58 (0.82-1.09); PROTHROMBIN TIME (PATIENT) 40.5 SEC (9.7-13.0)
[2017-12-01 12:53] LABS: ANION GAP 7 (8-16); BLOOD UREA NITROGEN 31 mg/dL (7-18); CALCIUM 10.6 mg/dL (8.5-10.1); CHLORIDE 101 mmol/L (98-107); CO2 32 mmol/L (21-32); CREATININE 1.3 mg/dL (0.55-1.02); GLUCOSE,RANDOM 143 mg/dL (74-106); POTASSIUM 3.5 mmol/L (3.5-5.1); SODIUM 140 mmol/L (136-145)
[2017-12-01] MEDS: hydrALAZINE HCL 50 MG TABLET (FP) PO SCH ×3 (14:16→21:41)
[2017-12-01] MEDS ORDERED: WARFARIN NA 1 MG TABLET (FP) PO ONE (18:00)
[2017-12-01] MEDS: VALSARTAN 160 MG TABLET (UD) PO SCH (21:42)
[2017-12-01] MEDS: ATORVASTATIN CA 10 MG TABLET (FP) PO SCH (21:44)
[2017-12-02] MEDS: NYSTATIN 500,000 UNITS/5 ML SUSPENSION PO SCH ×3 (05:30→17:23)
[2017-12-02] MEDS: hydrALAZINE HCL 50 MG TABLET (FP) PO SCH ×2 (05:30→14:16)
[2017-12-02 07:12] LABS: BASO % 0.2 % (0-2.0); HEMATOCRIT 35.7 % (32.4-45.2); HEMOGLOBIN 12.1 GM/dL (10.7-15.3); MCH 28.9 pg (25.7-33.7); MCHC 33.8 g/dl (32.0-36.0); MEAN CELL VOLUME 85.5 fl (80-96); MONO % 8.7 % (3.8-10.2); NEUT % 88.1 % (42.8-82.8); PLATELET COUNT 161 K/MM3 (134-434); RBC 4.18 M/mm3 (3.60-5.2); RDW 14.8 % (11.6-15.6); WHITE BLOOD COUNT 16.4 K/mm3 (4.0-10.0)
[2017-12-02 07:17] LABS: ANION GAP 9 (8-16); BLOOD UREA NITROGEN 32 mg/dL (7-18); CALCIUM 10.5 mg/dL (8.5-10.1); CHLORIDE 105 mmol/L (98-107); CO2 30 mmol/L (21-32); CREATININE 1.2 mg/dL (0.55-1.02); GLUCOSE,RANDOM 133 mg/dL (74-106); POTASSIUM 3.8 mmol/L (3.5-5.1); SODIUM 144 mmol/L (136-145)
[2017-12-02 07:20] LABS: INR 3.53 (0.82-1.09); PROTHROMBIN TIME (PATIENT) 39.9 SEC (9.7-13.0)
[2017-12-02] MEDS: ALBUTEROL SO4 2.5/IPRATROPIUM 0.5 INH SOL 3 ML VIAL.NEB. NEB SCH ×3 (08:10→16:20)
--- NOTE | 2017-12-02 09:54 | PN ---
Progress Note, Physician Chief Complaint: HTN urgency History of Present Illness: pt admits to ongoing sob when gets excited or moves more than couple of feet. no leg swelling no cp, palpitations has concerns about the meds she takes and pills she has difficulty swallowing, and how she will get the correct meds at home - Current Medication List Current Medications: Active Medications Acetaminophen (Tylenol -) 650 mg PO Q8H PRN PRN Reason: PAIN LEVEL 6-10 Albuterol/Ipratropium (Duoneb -) 1 amp NEB RQID [facility] Last Admin: 12/02/17 08:10 Dose: 1 amp Amlodipine Besylate (Norvasc -) 10 mg PO DAILY [facility] Last Admin: 12/01/17 10:28 Dose: 10 mg Atorvastatin Calcium (Lipitor -) 10 mg PO HS [facility] Last Admin: 12/01/17 21:44 Dose: 10 mg Carvedilol (Coreg -) 25 mg PO BID [facility] Last Admin: 12/01/17 21:41 Dose: 25 mg Chlorthalidone (Hygroton -) 25 mg PO DAILY [facility] Last Admin: 12/01/17 10:28 Dose: 25 mg Clopidogrel Bisulfate (Plavix -) 75 mg PO DAILY [facility] Last Admin: 12/01/17 10:27 Dose: 75 mg Digoxin (Lanoxin -) 0.125 mg PO DAILY [facility] Last Admin: 12/01/17 10:27 Dose: 0.125 mg Diltiazem HCl (Cardizem Cd -) 180 mg PO BID [facility] Last Admin: 12/01/17 21:41 Dose: 180 mg Fluticasone Propionate (Flonase -) 1 spray NS BID [facility] Last Admin: 12/01/17 21:42 Dose: Not Given Hydralazine HCl (Apresoline -) 50 mg PO TID [facility] Last Admin: 12/02/17 05:30 Dose: 50 mg Nystatin (Nystatin Oral Suspension -) 500,000 units PO Q6HPO [facility] Last Admin: 12/02/17 05:30 Dose: Not Given Prednisone (Deltasone -) 40 mg PO DAILY [facility] Ranitidine HCl (Zantac -) 150 mg PO BID [facility] Last Admin: 12/01/17 21:41 Dose: 150 mg Valsartan (Diovan -) 160 mg PO HS [facility] Last Admin: 12/01/17 21:42 Dose: 160 mg - Objective Vital Signs: Vital Signs Temperature 98.1 F 12/02/17 05:00 Pulse Rate 75 12/02/17 05:00 Respiratory Rate 20 12/02/17 05:00 Blood Pressure 133/78 12/02/17 05:00 O2 Sat by Pulse Oximetry (%) 99 12/01/17 21:00 Constitutional: Yes: Well Nourished, No Distress, Calm Cardiovascular: Yes: Regular Rate and Rhythm, Murmur (3/6 early BETTINA LLSB), S1, S2. No: JVD (in chair), Gallop Respiratory: Yes: Regular, CTA Bilaterally. No: Accessory Muscle Use, Rales, Wheezes Extremities: No: Cold Edema: No Neurological: Yes: Alert, Oriented Psychiatric: No: Agitated Labs: CBC, BMP 12/02/17 06:37 12/02/17 06:37 INR, PTT INR 3.53 (0.82-1.09) H 12/02/17 06:37 Assessment/Plan ekg: afib with pvc, VR 100 bpm. LVH. non-sp t wave ab. no acute ischenmic changes. echo 10/2017: nl lv/rv, mild jean carlos, mech mvr ok, bio avr ok, mod tr, rvsp 40-50 cxr: new congestive changes with bibasilar infiltrates and pleural effusions R> L. possible bibasilar atelectasis. prominent hilar markings. left apical pleural thickening. NAT scarring. vascular stent at left clavicle. 07/2017 parathyroid scan: focus of abnormal tracer suspicious for parathyroid adenoma. assessment/plan 67 yo smoker with h/o mechanical mvr and avr (presumed mechanical, but no mention of avr in cardiology notes) 2/2 rheumatic heart disease, HFpEF, Afib with h/o cva and residual dysphagia, HTN, HL, CAD wth h/o MN (no mention of pci in cardiology notes), pad with hx of subclavian stent and possibly also fem-pop bypass, COPD, lung ca s/p resection, chemo and xrt, pud, hyperparathyroidism ( recent parathyroid scan suspicious for parathyroid adenoma), recent renal doppler suspicious for renal artery stenosis who p/w hematuria and weakness and noted to have uncontrolled HTN. uncontrolled HTN/hypertensive urgency - Presented with sbp's > 200. asx. - improved after receiving all of her outpatient medications and one dose of IV hydralazine. Patient had recently self-d/c 2 medications due to mistake/ confusion. Had also been on clonidine in the past, but not on her most recent med list. Unclear if this is rebound htn vs. other etiology. Patient with possible parathyroid adenoma, but Ca not that high here. ? renal artery stenosis on recent eval. - ce's neg x 2. - hydralazine 50 tid added to regimen here - bp controlled, same meds - d/w'd hospitalist felice/dave issues of med administration and adherence at home based on pt's concerns acute diastolic hf exacerbation - cxr with increased congestive changes. BNP elevated. s/p iv lasix 40 mg 11/24 -11/26. - likely triggered by htn urgency. - Cr bumped so transitioned back to home chlorthalidone. - normal MVR and AVR function on echo, normal biventric function -appears euvolemic, ongoing signif sob ? sec to copd -cont same meds -should see dr aponte as outpt 1 week (her cardio) copd -per hospitalist +/- pulm afib/avr/mvr with h/o CVA? - coumadin dosing per inr. - patient with mechanical mvr, details of avr still unknown. (GOAL INR 2.5 -3.5 ) - rate ok on current meds, including digoxin (level ok). cad with hx of mi, no mention of prior intervention on outpatient cardiology notes. - ce's neg x 2. ekg without acute ischemic changes. - con't plavix. Was not on statin as outpatient?, started atorva here--f/u with outpt cardio pad s/p subclavian stent and possible fem-pop bypass - on plavix in addition to coumadin, hgb stable. con't statin. - smoking cessation counselled here.
[2017-12-02] MEDS ORDERED: predniSONE 20 MG TABLET (UD) PO SCH (10:00)
[2017-12-02] MEDS: DIGOXIN 0.125 MG TABLET (FP) PO SCH (10:36)
[2017-12-02] MEDS: CARVEDILOL 25 MG TABLET (FP) PO SCH (10:36)
[2017-12-02] MEDS: RANITIDINE HCL 150 MG TABLET (FP) PO SCH (10:36)
[2017-12-02] MEDS: amLODIPine BESYLATE 10 MG TABLET (FP) PO SCH (10:36)
[2017-12-02] MEDS: CLOPIDOGREL BISULFATE 75 MG TABLET (FP) PO SCH (10:37)
[2017-12-02] MEDS: FLUTICASONE PROP 0.05% 16 GM NASAL SPRAY NS SCH (10:37)
[2017-12-02] MEDS: CHLORTHALIDONE 25 MG TABLET PO SCH (10:37)
--- NOTE | 2017-12-02 11:05 | PN ---
Progress Note, Physician History of Present Illness: PULMONARY ALERT,NO DISTRESS,SOB IMPROVING,-CP - Current Medication List Current Medications: Active Medications Acetaminophen (Tylenol -) 650 mg PO Q8H PRN PRN Reason: PAIN LEVEL 6-10 Albuterol/Ipratropium (Duoneb -) 1 amp NEB RQID [facility] Last Admin: 12/02/17 08:10 Dose: 1 amp Amlodipine Besylate (Norvasc -) 10 mg PO DAILY [facility] Last Admin: 12/02/17 10:36 Dose: 10 mg Atorvastatin Calcium (Lipitor -) 10 mg PO HS [facility] Last Admin: 12/01/17 21:44 Dose: 10 mg Carvedilol (Coreg -) 25 mg PO BID [facility] Last Admin: 12/02/17 10:36 Dose: 25 mg Chlorthalidone (Hygroton -) 25 mg PO DAILY [facility] Last Admin: 12/02/17 10:37 Dose: 25 mg Clopidogrel Bisulfate (Plavix -) 75 mg PO DAILY [facility] Last Admin: 12/02/17 10:37 Dose: 75 mg Digoxin (Lanoxin -) 0.125 mg PO DAILY [facility] Last Admin: 12/02/17 10:36 Dose: 0.125 mg Diltiazem HCl (Cardizem Cd -) 180 mg PO BID [facility] Last Admin: 12/02/17 10:36 Dose: 180 mg Fluticasone Propionate (Flonase -) 1 spray NS BID [facility] Last Admin: 12/02/17 10:37 Dose: 1 spray Hydralazine HCl (Apresoline -) 50 mg PO TID [facility] Last Admin: 12/02/17 05:30 Dose: 50 mg Nystatin (Nystatin Oral Suspension -) 500,000 units PO Q6HPO [facility] Last Admin: 12/02/17 05:30 Dose: Not Given Prednisone (Deltasone -) 40 mg PO DAILY [facility] Last Admin: 12/02/17 10:37 Dose: 40 mg Ranitidine HCl (Zantac -) 150 mg PO BID [facility] Last Admin: 12/02/17 10:36 Dose: 150 mg Valsartan (Diovan -) 160 mg PO HS [facility] Last Admin: 12/01/17 21:42 Dose: 160 mg - Objective Vital Signs: Vital Signs Temperature 98.5 F 12/02/17 09:00 Pulse Rate 77 12/02/17 10:36 Respiratory Rate 20 12/02/17 09:00 Blood Pressure 138/67 12/02/17 09:00 O2 Sat by Pulse Oximetry (%) 99 12/02/17 09:00 Constitutional: Yes: Well Nourished, Calm Eyes: Yes: WNL HENT: Yes: WNL Neck: Yes: WNL Cardiovascular: Yes: Pulse Irregular, S1, S2 Respiratory: Yes: Rales (SCATTERED SHYANN WHEEZES) Gastrointestinal: Yes: Normal Bowel Sounds, Soft Extremities: Yes: WNL Edema: Yes Labs: CBC, BMP 12/02/17 06:37 12/02/17 06:37 INR, PTT INR 3.53 (0.82-1.09) H 12/02/17 06:37 Assessment/Plan Problem List - Problems (1) Hematuria Code(s): R31.9 - HEMATURIA, UNSPECIFIED (2) UTI (urinary tract infection) Code(s): N39.0 - URINARY TRACT INFECTION, SITE NOT SPECIFIED Qualifiers: Urinary tract infection type: site unspecified Hematuria presence: with hematuria Qualified Code(s): N39.0 - Urinary tract infection, site not specified; R31.9 - Hematuria, unspecified (3) Supratherapeutic INR Code(s): R79.1 - ABNORMAL COAGULATION PROFILE (4) S/P AVR (aortic valve replacement) Code(s): Z95.2 - PRESENCE OF PROSTHETIC HEART VALVE (5) S/P MVR (mitral valve replacement) Code(s): Z95.2 - PRESENCE OF PROSTHETIC HEART VALVE (6) A-fib Code(s): I48.91 - UNSPECIFIED ATRIAL FIBRILLATION Qualifiers: Atrial fibrillation type: chronic Qualified Code(s): I48.2 - Chronic atrial fibrillation (7) ASHD (arteriosclerotic heart disease) Code(s): I25.10 - ATHSCL HEART DISEASE OF [place] CORONARY ARTERY W/O ANG PCTRS (8) HTN (hypertension) Code(s): I10 - ESSENTIAL (PRIMARY) HYPERTENSION (9) COPD exacerbation Code(s): J44.1 - CHRONIC OBSTRUCTIVE PULMONARY DISEASE W (ACUTE) EXACERBATION (10) CHF (congestive heart failure) Code(s): I50.9 - HEART FAILURE, UNSPECIFIED Qualifiers: Heart failure type: unspecified Heart failure chronicity: acute on chronic Qualified Code(s): I50.9 - Heart failure, unspecified Assessment/Plan UTI Supratherapeutic INR corrected Acute COPD Exacerbation CHF Exacerbation CAD Atrial Fibrillation s/p MVR/AVR - monitor H/H, INR - transfuse as needed - Prednisone - inhaled bronchodilators - lasix - monitor urine output, creatinine - chest x-ray pa + lateral - short term rehab if pt consents - o2 sat at rest and post exercise on ra DR GUZMAN
[2017-12-02 12:10] VITALS: BMI 26.2
--- NOTE | 2017-12-02 14:13 | PN ---
Progress Note, Physician Chief Complaint: Pt sitting in chair in no acute distress. She denies any chest pain, sob, weakness. at bedside. - Current Medication List Current Medications: Active Medications Acetaminophen (Tylenol -) 650 mg PO Q8H PRN PRN Reason: PAIN LEVEL 6-10 Albuterol/Ipratropium (Duoneb -) 1 amp NEB RQID [facility] Last Admin: 12/02/17 12:35 Dose: 1 amp Amlodipine Besylate (Norvasc -) 10 mg PO DAILY [facility] Last Admin: 12/02/17 10:36 Dose: 10 mg Atorvastatin Calcium (Lipitor -) 10 mg PO [facility] Last Admin: 12/01/17 21:44 Dose: 10 mg Carvedilol (Coreg -) 25 mg PO BID [facility] Last Admin: 12/02/17 10:36 Dose: 25 mg Chlorthalidone (Hygroton -) 25 mg PO DAILY [facility] Last Admin: 12/02/17 10:37 Dose: 25 mg Clopidogrel Bisulfate (Plavix -) 75 mg PO DAILY [facility] Last Admin: 12/02/17 10:37 Dose: 75 mg Digoxin (Lanoxin -) 0.125 mg PO DAILY [facility] Last Admin: 12/02/17 10:36 Dose: 0.125 mg Diltiazem HCl (Cardizem Cd -) 180 mg PO BID [facility] Last Admin: 12/02/17 10:36 Dose: 180 mg Fluticasone Propionate (Flonase -) 1 spray NS BID [facility] Last Admin: 12/02/17 10:37 Dose: 1 spray Hydralazine HCl (Apresoline -) 50 mg PO TID [facility] Last Admin: 12/02/17 05:30 Dose: 50 mg Nystatin (Nystatin Oral Suspension -) 500,000 units PO Q6HPO [facility] Last Admin: 12/02/17 12:47 Dose: 500,000 units Prednisone (Deltasone -) 40 mg PO DAILY [facility] Last Admin: 12/02/17 10:37 Dose: 40 mg Ranitidine HCl (Zantac -) 150 mg PO BID [facility] Last Admin: 12/02/17 10:36 Dose: 150 mg Valsartan (Diovan -) 160 mg PO HS [facility] Last Admin: 12/01/17 21:42 Dose: 160 mg Warfarin Sodium (Coumadin -) 2.5 mg PO ONCE@1800 ONE Stop: 12/02/17 18:01 - Objective Vital Signs: Vital Signs Temperature 98.5 F 12/02/17 09:00 Pulse Rate 75 12/02/17 11:00 Respiratory Rate 20 12/02/17 09:00 Blood Pressure 138/67 12/02/17 09:00 O2 Sat by Pulse Oximetry (%) 96 12/02/17 11:00 Constitutional: Yes: No Distress Cardiovascular: Yes: Regular Rate and Rhythm, Murmur Respiratory: Yes: Diminished, Wheezes (scattered) Gastrointestinal: Yes: WNL, Normal Bowel Sounds. No: Distention, Tenderness Genitourinary: Yes: WNL Edema: No Neurological: Yes: WNL, Alert, Oriented Psychiatric: Yes: WNL, Alert, Oriented Labs: CBC, BMP 12/02/17 06:37 12/02/17 06:37 INR, PTT INR 3.53 (0.82-1.09) H 12/02/17 06:37 Assessment/Plan (1) CHF exacerbation Assessment/Plan: improved continue chlorthalidone cardiology following Code(s): I50.9 - HEART FAILURE, UNSPECIFIED Qualifiers: Heart failure type: systolic Qualified Code(s): I50.23 - Acute on chronic systolic (congestive) heart failure (2) COPD exacerbation Assessment/Plan: improved prednisone taper continue bronchodilators pre and post wnl repeat chest xray with improvement pulm following Code(s): J44.1 - CHRONIC OBSTRUCTIVE PULMONARY DISEASE W (ACUTE) EXACERBATION (3) UTI (urinary tract infection) Assessment/Plan: completed keflex tx Code(s): N39.0 - URINARY TRACT INFECTION, SITE NOT SPECIFIED Qualifiers: Urinary tract infection type: site unspecified Hematuria presence: with hematuria Qualified Code(s): N39.0 - Urinary tract infection, site not specified; R31.9 - Hematuria, unspecified (4) A-fib Assessment/Plan: rate controlled coumadin 2.5mg tonight Code(s): I48.91 - UNSPECIFIED ATRIAL FIBRILLATION Qualifiers: Atrial fibrillation type: chronic Qualified Code(s): I48.2 - Chronic atrial fibrillation (5) HTN (hypertension) Assessment/Plan: controlled Code(s): I10 - ESSENTIAL (PRIMARY) HYPERTENSION (6) Warfarin induced coagulopathy Assessment/Plan: INR slightly supra therapeutic INR goal 2.5-3.5 for mvr coumadin 2.5mg tonight monitor INR (7) ASHD (arteriosclerotic heart disease) Assessment/Plan: stable continue current management Code(s): I25.10 - ATHSCL HEART DISEASE OF [place] CORONARY ARTERY W/O ANG PCTRS Dispo: Pt has been refusing [facility] until today. She ambulated 30ft with PT today who found her to be high risk for falls with unsteady gait. Explained to pt the safest option is [facility] at this point, pt and agreeing to [facility]. CM informed. Pending [facility] placement.
[2017-12-02 14:58] VITALS: BP 133/64; PULSE 72; TEMP 97.9
--- NOTE | 2017-12-02 16:05 | DS ---
Physical Examination Vital Signs: Vital Signs Temperature 97.9 F 12/02/17 14:15 Pulse Rate 72 12/02/17 14:15 Respiratory Rate 18 12/02/17 14:15 Blood Pressure 133/64 12/02/17 14:15 O2 Sat by Pulse Oximetry (%) 96 12/02/17 11:00 Labs: CBC, BMP 12/02/17 06:37 12/02/17 06:37 Discharge Summary Reason For Visit: CHF COPD UTI Current Active Problems Accelerated hypertension (Acute) CHF (congestive heart failure) (Acute) CHF exacerbation (Acute) COPD (chronic obstructive pulmonary disease) (Acute) COPD exacerbation (Acute) Coumadin toxicity (Acute) Hematuria (Acute) Hypokalemia (Acute) Hypomagnesemia (Acute) Oral thrush (Acute) Persistent atrial fibrillation (Acute) UTI (urinary tract infection) (Acute) Warfarin-induced coagulopathy (Acute) Hospital Course: is 67 year old female who was admitted with UTI, copd/chf exacerbation , htn urgency. She has completed antibiotic course.Evaluated by pulm, cardiology. She has been cleared by pulm for d/c, may finish prednisone taper at snf. Other leyva, pt doing well, vital signs stable. pre and post O2sat wnl. Lung exam improved. Case discussed with cardiology, cleared for d/c. hydralazine added to home regimen. Pt had mistakenly stopped taking couple of her bp meds at home, htn urgency during admission which resolved with resuming home meds and 1 dose of iv hydralazine. ambulated 20ft with PT, who reports she has unsteady gait. Pt is an unsafe discharge home, pt has been refusing SNF. SNF reinforced today to pt and family for safe d/c. Pt agrees today and CM informed. Otherwise, is doing well without any acute concerns at the moment. She is cleared for d/c to SNF. f/u as directed. INR borderline supratherapeutic, coumadin 2.5mg tonight. Recheck INR in 3 days and adjust dose accordingly. Condition: Stable - Instructions Diet, Activity, Other Instructions: resume prev activity as tolerated , diet coumadin 2.5mg daily, CHECK INR IN 3 DAYS and adjust per INR f/u as directed Referrals: Claus Olivo MD [Non Staff, Medical] - 12/05/17 (FOR INR ) Sandy Krause MD [Non Staff, Medical] - 1 Week Disposition: ALF FACILITY - Home Medications Comprehensive Discharge Medication List: Ambulatory Orders Albuterol Sulfate Inhaler - [Ventolin HFA Inhaler -] 1 - 2 inh PO QID 07/02/17 Alendronate Na [Fosamax (Weekly)] 70 mg PO WE 07/02/17 Clopidogrel Bisulfate [Plavix] 75 mg PO DAILY 07/02/17 Digoxin [Lanoxin -] 0.125 mg PO DAILY 07/02/17 Diltiazem Cd [Cardizem Cd -] 180 mg PO HS 07/02/17 Tiotropium [place] [Spiriva] 1 inh PO DAILY 07/02/17 Valsartan [Diovan] 160 mg PO HS 07/02/17 Amlodipine Besylate [Norvasc -] 10 mg PO DAILY 30 Days #30 tablet 12/02/17 Atorvastatin Ca [Lipitor] 10 mg PO HS 30 Days #30 tablet 12/02/17 Carvedilol [Coreg -] 25 mg PO BID 30 Days #60 tablet 12/02/17 Chlorthalidone [Hygroton -] 25 mg PO DAILY 30 Days #30 tablet 12/02/17 Nystatin Oral Suspension - [Nystatin Oral Susp 980499 Units/5 ML -] 500,000 units PO Q6HPO 10 Days #10 cup 12/02/17 Ranitidine [Zantac -] 150 mg PO BID 6 Days #12 tablet 12/02/17 Warfarin Na [Coumadin -] 2.5 mg PO DAILY@1800 tablet 12/02/17 hydrALAZINE HCL [Apresoline -] 50 mg PO TID 30 Days #90 tablet 12/02/17 predniSONE [Deltasone -] See Taper PO DAILY 6 Days #8 tablet 12/02/17
[2017-12-02] MEDS ORDERED: WARFARIN NA 2.5 MG TABLET (FP) PO ONE (18:00)
== END 2017-12-02 17:59 | DRG 813 ==
LOC: JER 03:56 → JERBED 08:16 → J4S 13:38
PROVIDERS: ADMIT Internal Medicine; ATTEND Internal Medicine
DX: D68.32 Hemorrhagic disorder due to extrinsic circulating anticoagulants (principal); I50.31 Acute diastolic (congestive) heart failure; J44.1 Chronic obstructive pulmonary disease with (acute) exacerbation; N39.0 Urinary tract infection, site not specified; I48.1 Persistent atrial fibrillation; B37.0 Candidal stomatitis; J98.11 Atelectasis; I11.0 Hypertensive heart disease with heart failure; I25.10 Atherosclerotic heart disease of native coronary artery without angina pectoris; R31.9 Hematuria, unspecified; E87.6 Hypokalemia; E83.42 Hypomagnesemia; Z98.61 Coronary angioplasty status
CPT/HCPCS: 36415; 71045-TC-FY; 71046-TC-FY; 76856-TC; 80048; 80053; 80162; 80307; 81003; 81015; 82550; 82803; 83605; 83735; 83880; 84100; 84443; 84484; 85025; 85610; 85730; 87040; 87086; 87186; 93005; 93010; 93306-TC; 94640; 94761; 97116-GP; 97161-GP; 99282-25; J1644; J7620

== ENCOUNTER 2017-12-02 20:02 | Emergency (ER) | payer OTHER ==
[2017-12-02 21:09] VITALS: BP 156/82; PULSE 84; TEMP 97.6; BMI 26.2
--- NOTE | 2017-12-02 21:10 | PDOC ---
History of Present Illness - General Chief Complaint: Respiratory Stated Complaint: NOT FEELING WELL Time Seen by Provider: 12/02/17 20:26 - History of Present Illness Initial Comments: 12/02/17 21:11 67 yrs old F lives at home multiple co-morbidities ex smoker COPD, Ca Lung s/p lobectomy, mitral and aortic valve replacement, Afib, HTN, CAD s/p stent, and emphysema, who presents to the emergency department from [facility]. Patient was discharged from hospital today at 5:30 and transferred to [facility]. Upon arrival at [facility] family and patient were unhappy with the conditions at [facility] and demanded to be signed out AGAINST MEDICAL ADVICE from [facility] and to bring the patient home. Instead, [facility] had an ambulance called for her and the ambulance brought the patient to the emergency department. Here in the emergency department I have tried for over an hour to convince the patient to stay overnight in our emergency department to be reevaluated in the morning by our care management team but patient who is alert and oriented 3 and both sons are adamant on patient returning home. Patient's vital signs have been stable here in the emergency department I ambulated the patient around the emergency department and her oxygen level did not go below 88%. Unfortunately patient does not qualify for me to discharge her with an oxygen tank from the emergency department. I have notified our care management team that in the morning she will require VNS her meds called in an evaluation. Past History - Past Medical History Allergies/Adverse Reactions: Allergies Allergy/AdvReac Type Severity Reaction Status Date / Time aspirin Allergy Severe Difficulty Verified 12/02/17 21:09 Breathing bupropion HCl [From Zyban] Allergy Severe Difficulty Verified 12/02/17 21:09 Breathing iodine Allergy Severe Difficulty Verified 12/02/17 21:09 Breathing amiodarone Allergy Verified 12/02/17 21:09 CODEINE Allergy Uncoded 12/02/17 21:09 Home Medications: Ambulatory Orders Albuterol Sulfate Inhaler - [Ventolin HFA Inhaler -] 1 - 2 inh PO QID 07/02/17 Alendronate Na [Fosamax (Weekly)] 70 mg PO WE 07/02/17 Clopidogrel Bisulfate [Plavix] 75 mg PO DAILY 07/02/17 Digoxin [Lanoxin -] 0.125 mg PO DAILY 07/02/17 Diltiazem Cd [Cardizem Cd -] 180 mg PO HS 07/02/17 Tiotropium [place] [Spiriva] 1 inh PO DAILY 07/02/17 Valsartan [Diovan] 160 mg PO HS 07/02/17 Amlodipine Besylate [Norvasc -] 10 mg PO DAILY 30 Days #30 tablet 12/02/17 Atorvastatin Ca [Lipitor] 10 mg PO HS 30 Days #30 tablet 12/02/17 Carvedilol [Coreg -] 25 mg PO BID 30 Days #60 tablet 12/02/17 Chlorthalidone [Hygroton -] 25 mg PO DAILY 30 Days #30 tablet 12/02/17 Nystatin Oral Suspension - [Nystatin Oral Susp 017868 Units/5 ML -] 500,000 units PO Q6HPO 10 Days #10 cup 12/02/17 Ranitidine [Zantac -] 150 mg PO BID 6 Days #12 tablet 12/02/17 Warfarin Na [Coumadin -] 2.5 mg PO DAILY@1800 tablet 12/02/17 hydrALAZINE HCL [Apresoline -] 50 mg PO TID 30 Days #90 tablet 12/02/17 predniSONE [Deltasone -] See Taper PO DAILY 6 Days #8 tablet 12/02/17 Anemia: (VIT D DEFICIENT) Cancer: Yes (MALIGNANT LUNG TUMOR) Cardiac Disorders: Yes (RHEUMATIC AORTIC STENOSIS, RHEUMATIC MITRAL REGURGITATION) CVA: Yes (W/DYSPHAGIA) COPD: Yes HTN: Yes (ESSENTIAL HTN) Thyroid Disease: Yes (HYPERPARATHYROIDISM) - Surgical History Cardiac Surgery: Yes (MECHANICAL AORTIC AND MITRAL VALVE) - Immunization History Immunization Up to Date: Yes (PNA UP TO DATE) - Suicide/Smoking/Psychosocial Hx Smoking History: Never smoked Have you smoked in the past 12 months: No Information on smoking cessation initiated: No 'Breaking Loose' booklet given: 11/15/13 Hx Alcohol Use: No Drug/Substance Use Hx: No Substance Use Type: None Hx Substance Use Treatment: No Review of Systems - Review of Systems Comments:: 12/02/17 21:17 ROS: A complete review of 10 out of 10 review of systems is taken and is negative apart from what is previously mentioned below and in the HPI. *Physical Exam - Vital Signs Last Vital Signs Temp Pulse Resp BP Pulse Ox 97.6 F 84 16 156/82 97 12/02/17 20:20 12/02/17 20:20 12/02/17 20:20 12/02/17 20:20 12/02/17 20:20 - Physical Exam Comments: 12/02/17 21:18 Vitals: Triage Vital signs reviewed General Appearance: no acute distress, well nourished well developed, Head: Atraumatic, Chest Wall: Nontender Cardiac: Regular rate and rhythym, no murmurs, no rubs, no gallops, Lungs: Clear to auscultation bilateral, good air movement bilaterally, Extremities: Full range of motion to all extremities, no cyanosis, clubbing, or edema Skin: Warm and dry, no rashes or lesions, no rash, no petechiae Neuro: AOX3;,gait normal Psych: normal mood, normal affect Medical Decision Making - Medical Decision Making 12/02/17 21:18 Patient and family adamant to leave the hospital AGAINST MEDICAL ADVICE. Patient has capacity and is of sound mind and free of distracting injury. The patient is presenting with dissatisfaction about the conditions of SNF. I am concerned that patient is unsafe at home secondary to lack of oxygen lack, VNS and lack of medication. The patient has verbalized understanding of my concerns. The patient is clinically sober and appears free from distracting injury. The patient appears to have intact insight, judgment, and reason. In my opinion, this patient has the capacity to make decisions The risks of leaving against medical advice without further evaluation treatment were discussed with the patient. These risks include , permanent disability. The patient indicated understanding of these risks and appeared to have the capacity to make this decision. The patient is unwilling to stay for overnight observation such that the care management team can see her in the morning. Patient is unwilling to remain for additional monitoring. He is refusing further care and leaving against medical advice I'm unable to convince the patient to stay. I have asked the patient to return as soon as possible to complete his/her evaluation. I have called the with the primary care doctor to arrange follow-up for 2 times, Dr. Baires but have not recieved a call back. 12/03/17 02:57 *DC/Admit/Observation/Transfer Diagnosis at time of Disposition: COPD (chronic obstructive pulmonary disease) Qualifiers: COPD type: unspecified COPD Qualified Code(s): J44.9 - Chronic obstructive pulmonary disease, unspecified - Discharge Dispostion Disposition: AGAINST MEDICAL ADVICE Condition at time of disposition: Fair Decision to Admit order: No - Referrals - Patient Instructions - Post Discharge Activity
== END 2017-12-02 21:20 | disposition left against medical advice (07) ==
LOC: JER 20:02
DX: J44.9 Chronic obstructive pulmonary disease, unspecified (principal); J43.9 Emphysema, unspecified; I25.10 Atherosclerotic heart disease of native coronary artery without angina pectoris; I10 Essential (primary) hypertension; Z95.5 Presence of coronary angioplasty implant and graft; Z87.891 Personal history of nicotine dependence; Z95.2 Presence of prosthetic heart valve; I48.91 Unspecified atrial fibrillation; Z79.01 Long term (current) use of anticoagulants; E21.3 Hyperparathyroidism, unspecified; I69.891 Dysphagia following other cerebrovascular disease; R13.19 Other dysphagia; Z88.8 Allergy status to other drugs, medicaments and biological substances; Z90.5 Acquired absence of kidney
CPT/HCPCS: 99281-25